=== PATIENT | female | born 1940 | race African-American/Black ===

== ENCOUNTER 2021-10-22 14:19 | Outpatient (REF) | payer OTHER, SELFPAY ==
[2021-10-22 16:55] LABS: Hematocrit 38.9 % (37.0-47.0); Hemoglobin 12.3 g/dl (12.0-16.0); Mean Corpuscular HGB Conc 31.6 g/dl (31.0-35.0); Mean Corpuscular Hemoglobin 26.7 pg (27.0-33.0); Mean Corpuscular Volume 84.4 fL (80.0-98.0); Mean Platelet Volume 12.3 fL (9.4-12.3); Platelet Count 250 X10*3/uL (160-400); Red Blood Count 4.61 X10*6/uL (4.20-5.50); Red Cell Distribution Width 13.5 % (11.0-16.0); White Blood Count 10.7 X10*3/uL (4.8-10.8)
[2021-10-22 17:39] LABS: Estimated Average Glucose 280 mg/dL; Hemoglobin A1c % 11.4 %
[2021-10-22 17:44] LABS: Creatinine Urine 307.54 mg/dL; Microalbum/Creatinine Ratio Ur 18.5 ug/mg cr
[2021-10-22 17:46] LABS: Alanine Aminotransferase 10 U/L (0-31); Albumin Level 4.1 g/dL (3.5-5.0); Alkaline Phosphatase 84 U/L (39-117); Anion Gap 14 (12-20); Aspartate Amino Transferase 14 U/L (5-31); Bilirubin Total 0.8 mg/dL (0.0-1.0); Blood Urea Nitrogen 20 mg/dL (9-16); Calcium 9.9 mg/dL (8.4-10.2); Carbon Dioxide 28 mmol/L (22-29); Chloride 101 mmol/L (96-108); Cholesterol 156 mg/dL; Estimated Glomerular Filt Rate 40; Glucose Fasting 156 mg/dL (60-99); HDL Cholesterol 58 mg/dL; LDL Cholesterol Calculated 86 mg/dl; Potassium 4.1 mmol/L (3.3-5.1); Sodium 139 mmol/L (135-145); Total Protein 7.8 g/dL (6.5-8.0); Triglycerides 64 mg/dL
[2021-10-22 18:03] LABS: TSH reflex Free T4 1.09 uIU/mL (0.32-4.0)
== END 2021-10-22 14:20 | disposition home or self-care (01) ==
LOC: HO.HMGCLDS 14:19
PROVIDERS: PCP Internal Medicine; Visit Provider Internal Medicine
DX: E78.5 Hyperlipidemia, unspecified (principal); I10 Essential (primary) hypertension; R41.3 Other amnesia; E11.9 Type 2 diabetes mellitus without complications
CPT/HCPCS: 36415; 80053; 80061; 82043; 83036; 84443; 85027

== ENCOUNTER 2022-05-26 16:09 | Outpatient (REF) | payer OTHER, SELFPAY ==
[2022-05-26 16:46] LABS: Estimated Average Glucose 192 mg/dL; Hemoglobin A1c % 8.3 %
[2022-05-26 16:51] LABS: Alanine Aminotransferase 17 U/L (0-31); Albumin Level 4.3 g/dL (3.5-5.0); Alkaline Phosphatase 100 U/L (39-117); Anion Gap 13 (12-20); Aspartate Amino Transferase 20 U/L (5-31); Blood Urea Nitrogen 16 mg/dL (9-16); Calcium 9.6 mg/dL (8.4-10.2); Carbon Dioxide 30 mmol/L (22-29); Chloride 102 mmol/L (96-108); Cholesterol 187 mg/dL; Estimated Glomerular Filt Rate 57; Glucose Fasting 194 mg/dL (60-99); HDL Cholesterol 71 mg/dL; LDL Cholesterol Calculated 106 mg/dl; Potassium 4.3 mmol/L (3.3-5.1); Sodium 141 mmol/L (135-145); Total Protein 7.8 g/dL (6.5-8.0); Triglycerides 54 mg/dL
== END 2022-05-26 16:10 | disposition home or self-care (01) ==
LOC: HO.LAB 16:09
PROVIDERS: PCP Internal Medicine; Visit Provider Internal Medicine
DX: E66.3 Overweight (principal); E78.5 Hyperlipidemia, unspecified; I10 Essential (primary) hypertension; E11.9 Type 2 diabetes mellitus without complications
CPT/HCPCS: 36415; 80053; 80061; 83036

== ENCOUNTER 2022-10-29 11:31 | Outpatient (REF) | payer OTHER, SELFPAY ==
[2022-10-29 13:29] LABS: MANUAL DIFF FLAG NO
[2022-10-29 13:51] LABS: Basophils Percent Auto 0.5 % (0-2); Eosinophils Absolute Auto 0.3 X10*3/uL (0.0-0.4); Eosinophils Percent Auto 3.6 % (0-4); Hematocrit 40.4 % (37.0-47.0); Imm Gran Abs Auto 0.02 X10*3/uL (0.00-0.03); Imm Gran Pct Auto 0.2 % (0.0-0.4); Lymphocytes Absolute Auto 2.6 X10*3/uL (1.2-4.9); Lymphocytes Percent Auto 32.3 % (20-40); Mean Corpuscular HGB Conc 32.2 g/dl (31.0-35.0); Mean Corpuscular Hemoglobin 27.6 pg (27.0-33.0); Mean Corpuscular Volume 85.8 fL (80.0-98.0); Mean Platelet Volume 12.8 fL (9.4-12.3); Monocytes Absolute Auto 0.5 X10*3/uL (0.1-1.2); Monocytes Percent Auto 6.6 % (2-11); Neutrophils Absolute Auto 4.6 x10*3/uL (2.0-8.3); Neutrophils Percent Auto 56.8 % (45-73); Platelet Count 216 X10*3/uL (160-400); Red Blood Count 4.71 X10*6/uL (4.20-5.50); Red Cell Distribution Width 13.2 % (11.0-16.0); White Blood Count 8.2 X10*3/uL (4.8-10.8)
[2022-10-29 13:53] LABS: Estimated Average Glucose 203 mg/dL; Hemoglobin A1c % 8.7 %
[2022-10-29 14:18] LABS: Alanine Aminotransferase 11 U/L (0-31); Albumin Level 4.1 g/dL (3.5-5.0); Alkaline Phosphatase 70 U/L (39-117); Anion Gap 12 (12-20); Aspartate Amino Transferase 16 U/L (5-31); Bilirubin Total 0.9 mg/dL (0.0-1.0); Blood Urea Nitrogen 16 mg/dL (9-16); Calcium 10.1 mg/dL (8.4-10.2); Carbon Dioxide 30 mmol/L (22-29); Chloride 102 mmol/L (96-108); Cholesterol 145 mg/dL; Estimated Glomerular Filt Rate 52; Glucose Fasting 190 mg/dL (60-99); HDL Cholesterol 62 mg/dL; LDL Cholesterol Calculated 68 mg/dl; Potassium 4.4 mmol/L (3.3-5.1); Sodium 140 mmol/L (135-145); Triglycerides 77 mg/dL
[2022-10-29 14:20] LABS: TSH reflex Free T4 1.37 uIU/mL (0.32-4.0); Vitamin D 25-OH Total 37.2 ng/mL (>30)
[2022-10-29 14:33] LABS: Creatinine Urine 71.47 mg/dL; Microalbum/Creatinine Ratio Ur 78.3 ug/mg cr
[2022-10-29 14:33] LABS: Folate 12.7 ng/mL (> or = 4.0); Vitamin B12 664 pg/mL (200-900)
== END 2022-10-29 11:32 | disposition home or self-care (01) ==
LOC: HO.HMGCLDS 11:31
PROVIDERS: PCP Internal Medicine; Visit Provider Internal Medicine
DX: E11.65 Type 2 diabetes mellitus with hyperglycemia (principal); E78.5 Hyperlipidemia, unspecified; I10 Essential (primary) hypertension; R41.3 Other amnesia; Z78.0 Asymptomatic menopausal state
CPT/HCPCS: 36415; 80053; 80061; 82043; 82306; 82607; 82746; 83036; 84443; 85025

== ENCOUNTER 2022-11-02 12:08 | Outpatient (AMB) | payer OTHER, SELFPAY ==
--- NOTE | 2022-11-02 12:16 | MHC.PC.OV ---
Vital Signs 11/02/22 12:42 Height 5 ft 4 in Weight 182 lb BMI 31.2 BP 132/68 Blood Pressure Location Lt brachial Position Sitting Pulse 78 Pulse Source Pulse Oximeter Pulse Oximetry (%) 95 Oxygen Delivery Method Room Air Intake Visit Reasons: 3 months HTN, DM Intake Note: Patient here for HTN and DM follow up. Allergies latex Allergy (Mild, Verified 11/02/22 13:00) Cough Medication List - Last Reconciled 11/02/22 by Inga Alvarenga MD atorvastatin 10 mg PO DAILY blood sugar diagnostic ([employer] Ultra Test strips) Check fasting glucose twice a day ac blood-glucose meter ([employer] Ultra2 Meter) Check fasting blood sugar twice a day before meals carvedilol 3.125 mg PO BID lancets ([facility] SureSoft Lancing Devices) Check fasting blood sugar twice a day ac metformin 1,000 mg PO BIDWMEAL nifedipine ER 90 mg PO DAILY Tobacco use date assessed: 06/03/22 HPI 3 months HTN, DM HPI Details 82-year-old lady with diabetes mellitus, hyperlipidemia, and hypertension, here today for follow-up. She had recent fasting labs done which showed hemoglobin A1c up to 8.7% now with microalbuminuria present. Lipids however are within normal limits. [facility] Medical History Diabetes mellitus with hyperglycemia, without long-term current use of insulin DM type 2 (diabetes mellitus, type 2) HTN (hypertension) Hyperlipidemia Memory loss Surgical History Hx of section Hx of total knee replacement S/P cholecystectomy S/P right knee surgery Family History Father Hypertension Stroke Mental health disorder Mother Hypertension Sister Tuberculosis Social History Household Members Other:: lives with daughter Housing: House Patient Tobacco Use Status: Never used Tobacco e-Cigarette/Vaping Use: Never Used Current occupational status: retired Cognitive needs: No Hearing needs: No Vision needs: Yes Questionnaire Thrive Questionnaire Date Thrive assessed: 06/03/22 JUSTUS-7 AMB Questionnaire JUSTUS-7 Date JUSTUS - 7 assessed: 06/03/22 Source: Developed by Drs. José Scott, Radha Cool, Carlos Blanco and colleagues, with an educational néstor from [employer]. Review of Systems Const All systems reviewed & are unremarkable except as noted in HPI and below Reports no additional complaints and Reports fatigue Eyes Denies change in vision ENT Reports no additional complaints Card Denies chest pain, Denies syncope, Denies rapid heart rate, Denies pedal edema, Denies irregular heart rhythm and Denies dyspnea Resp Denies cough and Denies dyspnea GI Reports no additional complaints Denies hematuria, Denies difficulty voiding and Denies dysuria Musc Details: Occasional stiffness in joints, no swelling or bone deformity he reported Neuro Reports no additional complaints and Denies syncope Endo Reports fatigue, Reports polydipsia and Reports polyuria Faisal/Lymph Denies easy bleeding and Denies easy bruising Aller/Immun Reports no additional complaints Physical exam (Primary Care) Vital Signs: Last Vital Signs Pulse 78 11/02/22 12:42 BP 132/68 11/02/22 12:42 Pulse Ox 95 11/02/22 12:42 Oxygen Delivery Method Room Air 11/02/22 12:42 BMI result Body Mass Index 31.2 BMI Assessment/Plan discussion: High BMI High, discussed plan: lifestyle, weight reduction, dietary and physical activity Tobacco/Smoking Status: Tobacco use Status Tobacco use date assessed 06/03/22 11/02/22 12:16 Patient Tobacco Use Status Never used Tobacco 11/02/22 12:16 e-Cigarette/Vaping Use Never Used 11/02/22 12:16 Thrive Assessment: Date of Thrive Assessment Date Thrive assessed 06/03/22 11/02/22 12:16 Const General: no acute distress and alert Orientation/consciousness: patient oriented x3 HENMT Head: Yes normal to inspection Face and sinus: Yes normal facial exam Mouth: Normal oral and palatal mucosa present and moist mucous membranes Throat: Yes posterior oropharynx normal Eyes General: appearance normal, both eyes and all related structures Neck Neck: Yes no lymphadenopathy and Yes supple Resp Effort & Inspection: normal respiratory effort Auscultation: clear to auscultation bilaterally Cardio Rhythm: regular rhythm Heart sounds: S1 normal heart sound present and S2 normal heart sound present GI Palpation (GI): Soft to palpation Percussion: Yes normal to percussion Auscultation: normal bowel sounds Skin Other: Plantar calluses in both feet Neuro General: patient oriented x3, gait normal, tone normal, moves all extremities, Normal light touch and pain sensation and CN's II-XI intact bilaterally Extrem General: Yes full ROM, Yes no joint enlargement, Yes no pedal edema and Yes normal gait Results Reviewed Results Reviewed: ENTERED: 10/29/[address]: ORDERED: CBC Auto Diff Test Result Flag Reference Site WBC 8.2 4.8-10.8 X10*3/uL RBC 4.71 4.20-5.50 X10*6/uL HGB 13.0 12.0-16.0 g/dl HCT 40.4 37.0-47.0 % MCV 85.8 80.0-98.0 fL MCH 27.6 27.0-33.0 pg MCHC 32.2 31.0-35.0 g/dl RDW 13.2 11.0-16.0 % PLT 216 160-400 X10*3/uL MPV 12.8 H 9.4-12.3 fL Neut Pct Auto 56.8 45-73 % ImGran Pct Auto 0.2 0.0-0.4 % Lymp Pct Auto 32.3 20-40 % Sullivan Pct Auto 6.6 2-11 % Eos Pct Auto 3.6 0-4 % Baso Pct Auto 0.5 0-2 % NRBC Pct Auto 0.0 0.0-0.2 /100WBC ANC Neut Abs # 4.6 2.0-8.3 x10*3/uL ImGran Abs Auto 0.02 0.00-0.03 X10*3/uL Lymph Abs Auto 2.6 1.2-4.9 X10*3/uL Sullivan Abs Auto 0.5 0.1-1.2 X10*3/uL Eos Abs Auto 0.3 0.0-0.4 X10*3/uL Baso Abs Auto 0.0 0.0-0.2 X10*3/uL NRBC Abs Auto 0.000 0.0-0.012 X10*3/uL Laboratory Tests 10/29/22 11:39 Estimat Average Glucose 203 Hemoglobin A1c % 8.7 ENTERED: 10/29/[address]: ORDERED: CMP Fast, Lipid Panel, Vitamin D 25-OH, TSH Rflx Test Result Flag Reference Site Sodium 140 135-145 mmol/L Potassium 4.4 3.3-5.1 mmol/L CL 102 96-108 mmol/L CO2 30 H 22-29 mmol/L Gap 12 12-20 BUN 16 9-16 mg/dL Creat 1.02 0.5-1.4 mg/dL EGFR 52 NOTE: For -[place] individuals, multiply the result by 1.210. Chronic Kidney Disease: Estimated GFR < 60 mL/min/1.73m2 Severe Kidney Disease: Estimated GFR < 15 mL/min/1.73m2 FBS 190 H 60-99 mg/dL A fasting glucose of 126 mg/dl or greater on more than one occasion is considered diagnostic of diabetes. CA 10.1 8.4-10.2 mg/dL Total Bili 0.9 0.0-1.0 mg/dL AST (GOT) 16 5-31 U/L ALT (GPT) 11 0-31 U/L Protein, Total 8.0 6.5-8.0 g/dL Alb 4.1 3.5-5.0 g/dL Triglyceride 77 mg/dL Desirable Triglyceride: less than 150 mg/dL Borderline High Triglyceride 150-199 mg/dL High Triglyceride: 200-499 mg/dL Very High Triglyceride: greater than or equal to 5OO mg/dL Chol 145 mg/dL Desirable Cholesterol: less than 200 mg/dL Borderline High Cholesterol: 200-239 mg/dL High Cholesterol: greater than 239 mg/dL LDL Calculated 68 mg/dl Desirable LDL: less than 100 mg/dL Near Optimal/Above Optimal LDL: 110-129 mg/dL Borderline High LDL: 130-159 mg/dL High LDL: 160-189 mg/dL Very High LDL: greater than or equal to 190 mg/dL HDL 62 mg/dL Desirable HDL: greater than 40 mg/dL Note: This HDL assay may give artificially low results in patients with liver disease. Alk Phos 70 39-117 U/L Vit D 25-OH Tot 37.2 >30 ng/mL Health Based Reference Values* < 20 ng/mL Deficient 20-30 ng/mL Insufficient > 30 ng/mL Sufficient *Lynette BORJAS. N Engl J Med. 2007;[id number] Care must be taken in interpreting Vitamin D results from different laboratories and methodologies. Published data demonstrated that results from patients undergoing hemodialysis may show a negative bias when tested with various automated 25-OH vitamin D assays when compared to LC-MS/MS. When testing samples from patients whose predominant form of Vitamin D is Vitamin D2, such as patients receiving Vitamin D2 supplementation, results that are subtherapeutic should be confirmed with another method such as LC-MS/MS. TSH 1.37 0.32-4.0 uIU/mL Laboratory Tests 10/29/22 10/29/22 11:39 11:39 Vitamin B12 664 Folate 12.7 TSH 1.37 Laboratory Tests 10/29/22 10/29/22 11:39 11:45 Estimat Average Glucose 203 Hemoglobin A1c % 8.7 Urine Creatinine 71.47 Urine Microalbumin 56.0 Microalb/Creat Ratio 78.3 Assessment and Plan Assessment & Plan (1) Diabetes mellitus with hyperglycemia, without long-term current use of insulin: Code(s): E11.65 - Type 2 diabetes mellitus with hyperglycemia Plan: Hemoglobin A1c higher at 8.7%, now with microalbuminuria present. Continue with metformin, added Trulicity 0.75 mg to be injected once a week, discussed possible adverse effects with medication, discontinue if any severe abdominal pain, nausea vomiting or fever develops. Reinforced adherence to diabetic diet and referred Lana for further diabetic education (2) HTN (hypertension): Code(s): I10 - Essential (primary) hypertension Plan: Blood pressure at goal of less than 130/80. Continue with current medication. Reinforced importance of following a low sodium diet, getting regular exercise, and lowering stress levels. (3) Hyperlipidemia: Code(s): E78.5 - Hyperlipidemia, unspecified Qualifiers: Hyperlipidemia type: pure hypercholesterolemia Qualified Code(s): E78.00 - Pure hypercholesterolemia, unspecified Plan: Reviewed recent fasting lipid profile with patient with levels . Continue with atorvastatin 10 mg daily , in addition to adherence to low-cholesterol diet and regular exercise, at least 30 minutes 3 to 4 times a week. Advised patient to make healthy food choices, eat more fruits, vegetables, whole grains, wild caught fish and low-fat dairy. Limit amount of meat and fried or fatty food products, as well as processed foods and fast foods. Medications: New Trulicity (dulaglutide) 0.75 mg (0.5 mL) subcut QWEEK 2 mL 3RF NS E11.65 - Type 2 diabetes mellitus with hyperglycemia Coding Level of Care Code Est Pt Level 4 (31276) Diagnoses Diabetes mellitus with hyperglycemia, without long-term current use of insulin E11.65 HTN (hypertension) I10 Pure hypercholesterolemia E78.00 Hyperlipidemia type: pure hypercholesterolemia
[2022-11-02 12:42] VITALS: BP 132/68; PULSE 78; O2SAT 95; BMI 31.2
== END 2022-11-02 13:42 | disposition home or self-care (01) ==
PROVIDERS: PCP Internal Medicine; Visit Provider Internal Medicine
DX: E11.65 Type 2 diabetes mellitus with hyperglycemia (principal); I10 Essential (primary) hypertension; E78.00 Pure hypercholesterolemia, unspecified
CPT/HCPCS: 99214

== ENCOUNTER 2023-04-07 09:58 | Outpatient (REF) | payer OTHER, SELFPAY ==
[2023-04-07 14:05] LABS: Estimated Average Glucose 143 mg/dL; Hemoglobin A1c % 6.6 % (<6.0)
[2023-04-07 14:23] LABS: Alanine Aminotransferase 12 U/L (0-31); Anion Gap 12 (12-20); Aspartate Amino Transferase 19 U/L (5-31); Blood Urea Nitrogen 13 mg/dL (9-16); Calcium 9.8 mg/dL (8.4-10.2); Carbon Dioxide 27 mmol/L (22-29); Chloride 103 mmol/L (96-108); Cholesterol 131 mg/dL (<200); Estimated Glomerular Filt Rate > 60; Glucose Fasting 121 mg/dL (60-99); HDL Cholesterol 51 mg/dL (>40); LDL Cholesterol Calculated 72 mg/dL (<100); Sodium 138 mmol/L (135-145); Triglycerides 44 mg/dL (<150)
== END 2023-04-07 09:59 | disposition home or self-care (01) ==
LOC: HO.HMGCLDS 09:58
PROVIDERS: PCP Internal Medicine; Visit Provider Internal Medicine
DX: E11.65 Type 2 diabetes mellitus with hyperglycemia (principal); E78.00 Pure hypercholesterolemia, unspecified; I10 Essential (primary) hypertension
CPT/HCPCS: 36415; 80048; 80061; 83036; 84450; 84460

== ENCOUNTER 2023-04-13 10:29 | Outpatient (AMB) | payer OTHER, SELFPAY ==
--- NOTE | 2023-04-13 10:33 | MHC.PC.OV ---
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 Accompanied by: Daughter (Candelaria) Allergies latex Allergy (Mild, Verified 04/14/23 04:47) Cough Medication List - Last Reconciled 04/14/23 by Inga Alvarenga MD atorvastatin 10 mg PO DAILY blood sugar diagnostic ([employer] Ultra Test strips) Check fasting glucose twice a day ac blood-glucose meter ([employer] Ultra2 Meter) Check fasting blood sugar twice a day before meals carvedilol 3.125 mg PO BID lancets ([employer] SureSoft Lancing Devices) Check fasting blood sugar twice a day ac metformin 1,000 mg PO BIDWMEAL nifedipine ER 90 mg PO DAILY Trulicity (dulaglutide) 0.75 mg (0.5 mL) subcut QWEEK NS Tobacco use date assessed: 04/13/23 Fall risk assessment: No Falls in past year Last assessed Fall Risk: 04/13/23 Dental Screening Dental Screen Date: 04/13/23 Did you have a dental visit in the last 12 months?: No Was dental information given to patient?: No HPI f/u lab results HPI Details 82-year-old lady, here today for follow-up on her hypertension, hyperlipidemia and diabetes mellitus. She has been compliant with taking her medications, has been following recommended diet, tries to stay active as much as she can. Feels well with no complaints. Recent fasting labs showed results within normal limits with hemoglobin A1c at 6.6%, fasting lipids within normal limits as well as liver enzymes electrolytes and renal function. She is up-to-date with all her vaccinations but has not yet received her updated pneumonia vaccine, which will be given today. [facility] Medical History (Updated 04/13/23 @ 11:12 by Inga Alvarenga MD) Impacted cerumen of both ears Diabetes mellitus, without long-term current use of insulin Essential hypertension Diabetes mellitus with hyperglycemia, without long-term current use of insulin Memory loss Hyperlipidemia Surgical History S/P right knee surgery Hx of section S/P cholecystectomy Hx of total knee replacement Family History Father Hypertension Stroke Mental health disorder Mother Hypertension Sister Tuberculosis Social History Household Members Other:: lives with daughter Housing: House Patient Tobacco Use Status: Never used Tobacco e-Cigarette/Vaping Use: Never Used Current occupational status: retired Cognitive needs: No Hearing needs: No Vision needs: Yes Questionnaire PHQ-9 Over the last 2 weeks, how often have you been bothered by any of the following problems? 1. Little interest or pleasure in doing things: not at all 2. Feeling down, depressed, or hopeless: not at all 3. Trouble falling or staying asleep, or sleeping too much: more than half the days 4. Feeling tired or having little energy: several days 5. Poor appetite or overeating: several days 6. Feeling bad about yourself - or that you are a failure or have let yourself or your family down: not at all 7. Trouble concentrating on things, such as reading the newspaper or watching television: not at all 8. Moving or speaking so slowly that other people could have noticed. Or the opposite - being so fidgety or restless that you have been moving around a lot more than usual: not at all 9. Thoughts that you would be better off or of hurting yourself in some way: not at all Total score: 4 Depression Screening Interpretation: Negative Depression Screening Done: Yes 29490 - PHQ-9 Billing: Yes Source: Developed by Drs. José Scott, Radha Cool, Carlos Blanco and colleagues, with an educational néstor from [employer]. Thrive Questionnaire Date Thrive assessed: 04/13/23 I am a: Patient What is your living situation today?: I have a steady place to live Within the past 12 months, did the food you bought not last and you didn't have the money to get more?: Sometimes True Within the past 12 months, did you worry whether your food would run out before you got money to buy more?: Sometimes True Do you have trouble paying for medicines?: Yes Do you have trouble getting transportation to medical appointments?: Yes Do you have trouble paying your heating and electricity bill?: Yes Do you have trouble taking care of your child, family member or friend?: No Do you have trouble with day-to-day activities such as bathing, preparing meals, shopping, managing finances, etc.?: No Are you currently unemployed and looking for a job?: No Are you interested in more education?: No THRIVE Score: 4 AUDIT C Alcohol Use Questionnaire (AUDIT-C) 1. How often do you have a drink containing alcohol?: Never Total Score: 0 JUSTUS-7 AMB Questionnaire JUSTUS-7 Date JUSTUS - 7 assessed: 04/13/23 Feeling nervous, anxious, or on edge: 0 = Not at all Not being able to stop or control worryin = Several days Worrying too much about different things: 1 = Several days Trouble relaxin = Not at all Being so restless that it is hard to sit still: 0 = Not at all Becoming easily annoyed or irritable: 0 = Not at all Feeling afraid as if something awful might happen: 1 = Several days Total JUSTUS-7 score (0-4 normal; 5-9 mild; 10-14 moderate; 15-21 severe): 3 Source: Developed by Drs. José Scott, Radha Cool, Carlos Blanco and colleagues, with an educational néstor from [employer]. JUSTUS-7 Assessment Billing JUSTUS-7 Assessment Tool: JUSTUS-7 Assessment 78621 Review of Systems Const All systems reviewed & are unremarkable except as noted in HPI and below Reports no additional complaints Eyes Denies change in vision ENT Details: Decreased hearing, negative will done August Denies ear discharge, Denies otalgia and Denies nasal congestion Card Denies chest pain, Denies rapid heart rate, Denies pedal edema, Denies irregular heart rhythm and Denies dyspnea Resp Denies cough and Denies dyspnea GI Reports no additional complaints Denies hematuria, Denies difficulty voiding and Denies dysuria Musc Details: Occasional stiffness in joints, no swelling or bone deformity he reported Neuro Reports no additional complaints Endo Reports polydipsia and Reports polyuria Faisal/Lymph Denies easy bleeding and Denies easy bruising Aller/Immun Reports no additional complaints Physical exam (Primary Care) Vital Signs: Last Vital Signs Pulse 89 04/13/23 10:43 BP 148/72 H 04/13/23 10:43 Pulse Ox 98 04/13/23 10:43 Oxygen Delivery Method Room Air 04/13/23 10:43 BMI result Body Mass Index 31.6 Tobacco/Smoking Status: Tobacco use Status Tobacco use date assessed 04/13/23 04/13/23 10:40 Patient Tobacco Use Status Never used Tobacco 04/13/23 10:40 e-Cigarette/Vaping Use Never Used 04/13/23 10:40 PHQ-9: PHQ-9 Score PHQ-9: Total score 4 04/13/23 11:11 Depression Screening Interpretation: Negative Thrive Assessment: Date of Thrive Assessment Date Thrive assessed 04/13/23 04/13/23 10:55 ACP: Accompanied by daughter, ambulatory normal gait Const General: no acute distress and alert Orientation/consciousness: patient oriented x3 HENMT Head: Yes normal to inspection Face and sinus: Yes normal facial exam Mouth: Normal oral and palatal mucosa present and moist mucous membranes Throat: Yes posterior oropharynx normal Eyes General: appearance normal, both eyes and all related structures Neck Neck: Yes no lymphadenopathy and Yes supple Resp Effort & Inspection: normal respiratory effort Auscultation: clear to auscultation bilaterally Cardio Rhythm: regular rhythm Heart sounds: S1 normal heart sound present and S2 normal heart sound present GI Palpation (GI): Soft to palpation Percussion: Yes normal to percussion Auscultation: normal bowel sounds Skin Other: Plantar calluses in both feet Neuro General: patient oriented x3, gait normal, tone normal, moves all extremities, Normal light touch and pain sensation and CN's II-XI intact bilaterally Extrem General: Yes full ROM, Yes no joint enlargement, Yes no pedal edema and Yes normal gait Immunizations pneumoc 20-jennie conj-dip cr(PF) 0.5 mL IM syringe Performing Provider: Inga Alvarenga MD Performing Location: [facility] Administered by: Dennise Medley CMA on 04/13/23 11:18 Dose Route Admin Location Dispensed Lot Number Expiration Date NDC Computer Forensic Examiner 0.5 mL IM Right Deltoid 0.5 mL [id number] 05/12/24 2035-6040-32 [employer] VIS Given Date VIS Provided VIS Publication Date 04/13/23 Single Vaccine 21 Eligibility Eligibility Date Funding Source Not VFC Eligible 04/13/23 Private Results Reviewed Results Reviewed: Name: Ely Little Age/Sex: 82/F : 1940 Unit#: [id number] Attend Dr: Inga Alvarenga MD Re04/07/23 Status: DEP REF Location: [facility] Disch: SPEC : [id number] ELIAN: 04/07/23 STATUS: COMP REQ : [id number] RECD: 04/07/23-[address]: Inga Alvarenga MD COMP: 04/07/23 ENTERED: 04/07/23-[address]: ORDERED: Met Prof Fast, AST, ALT, Lipid Panel Test Result Flag Reference Sodium 138 135-145 mmol/L Potassium 4.0 3.3-5.1 mmol/L CL 103 96-108 mmol/L CO2 27 22-29 mmol/L Gap 12 12-20 BUN 13 9-16 mg/dL Creat 0.88 0.5-1.4 mg/dL EGFR > 60 NOTE: For -[place] individuals, multiply the result by 1.210. Chronic Kidney Disease: Estimated GFR < 60 mL/min/1.73m2 Severe Kidney Disease: Estimated GFR < 15 mL/min/1.73m2 FBS 121 H 60-99 mg/dL A fasting glucose from 100-125 mg/dl is considered impaired (pre-diabetes). CA 9.8 8.4-10.2 mg/dL AST (GOT) 19 5-31 U/L ALT (GPT) 12 0-31 U/L Triglyceride 44 <150 mg/dL Desirable Triglyceride: less than 150 mg/dL Borderline High Triglyceride 150-199 mg/dL High Triglyceride: 200-499 mg/dL Very High Triglyceride: greater than or equal to 5OO mg/dL Cholesterol 131 <200 mg/dL Desirable Cholesterol: less than 200 mg/dL Borderline High Cholesterol: 200-239 mg/dL High Cholesterol: greater than 239 mg/dL LDL Calculated 72 <100 mg/dL Desirable LDL: less than 100 mg/dL Near Optimal/Above Optimal LDL: 110-129 mg/dL Borderline High LDL: 130-159 mg/dL High LDL: 160-189 mg/dL Very High LDL: greater than or equal to 190 mg/dL HDL 51 >40 mg/dL Desirable HDL: greater than 40 mg/dL Note: This HDL assay may give artificially low results in patients with liver disease. Laboratory Tests 04/07/23 10:12 Estimat Average Glucose 143 Hemoglobin A1c % 6.6 H Assessment and Plan Assessment & Plan (1) Diabetes mellitus, without long-term current use of insulin: Code(s): E11.9 - Type 2 diabetes mellitus without complications Plan: Recent lab results reviewed with patient, with sugar and hemoglobin A1c stable and at goal with hemoglobin A1c at 6.6%. Continue with Trulicity, metformin at the same dose . Reinforced diabetic diet and regular exercise with patient. Counseled regarding importance of yearly diabetes retinopathy screening. Patient advised to inspect feet daily, for any signs of injury, callus or infection. Compliance with diet and regular exercise again stressed. Blood pressure goal is less than 130/80, goal LDL is less than 100 and goal hemoglobin A1c is less than 7% follow-up appointment made in-3--months, after fasting labs done. Patient states that she received already her COVID vaccine from the [facility] and her flu shot from [facility]. Prevnar 20 given today. Recommended to get shingles vaccine (2) Essential hypertension: Code(s): I10 - Essential (primary) hypertension Plan: Blood pressure higher than last check but acceptable for her age, will continue on nifedipine ER, carvedilol at same dose and reinforced importance of a low-salt diet staying at (3) Hyperlipidemia: Code(s): E78.5 - Hyperlipidemia, unspecified Qualifiers: Hyperlipidemia type: pure hypercholesterolemia Qualified Code(s): E78.00 - Pure hypercholesterolemia, unspecified Plan: Reviewed recent fasting lipid profile with patient with levels within normal limits . Continue with atorvastatin 10 mg daily , in addition to adherence to low-cholesterol diet and regular exercise, at least 30 minutes 3 to 4 times a week. Advised patient to make healthy food choices, eat more fruits, vegetables, whole grains, wild caught fish and low-fat dairy. Limit amount of meat and fried or fatty food products, as well as processed foods and fast foods. Follow-up scheduled with repeat fasting lipid panel in 3 months. (4) Impacted cerumen of both ears: Code(s): H61.23 - Impacted cerumen, bilateral Orders: Orders Basic Metabolic Panel Fasting 3 Months E11.9 - Type 2 diabetes mellitus without complications, E78.5 - Hyperlipidemia, unspecified, I10 - Essential (primary) hypertension Alanine Aminotransferase 3 Months E11.9 - Type 2 diabetes mellitus without complications, E78.5 - Hyperlipidemia, unspecified, I10 - Essential (primary) hypertension Aspartate Amino Transferase 3 Months E11.9 - Type 2 diabetes mellitus without complications, E78.5 - Hyperlipidemia, unspecified, I10 - Essential (primary) hypertension Pneumococcal 20 Immunization 04/13/23 Z23 - Encounter for immunization Hemoglobin A1c 3 Months E11.9 - Type 2 diabetes mellitus without complications, E78.5 - Hyperlipidemia, unspecified, I10 - Essential (primary) hypertension Microalbumin, Random (w Creat) 3 Months E11.9 - Type 2 diabetes mellitus without complications, E78.5 - Hyperlipidemia, unspecified, I10 - Essential (primary) hypertension Lipid Panel 3 Months E11.9 - Type 2 diabetes mellitus without complications, E78.5 - Hyperlipidemia, unspecified, I10 - Essential (primary) hypertension Vitamin D 25-OH Total 3 Months E11.9 - Type 2 diabetes mellitus without complications, E78.5 - Hyperlipidemia, unspecified, I10 - Essential (primary) hypertension Medications: Refilled nifedipine ER 90 mg PO DAILY 30 tabs 5RF atorvastatin 10 mg PO DAILY 30 tabs 6RF Trulicity (dulaglutide) 0.75 mg (0.5 mL) subcut QWEEK 2 mL 6RF NS E11.65 - Type 2 diabetes mellitus with hyperglycemia carvedilol 3.125 mg PO BID 60 tabs 6RF metformin 1,000 mg PO BIDWMEAL 60 tabs 6RF Coding Level of Care Code Est Pt Level 4 (13136) Diagnoses Diabetes mellitus, without long-term current use of insulin E11.9 Essential hypertension I10 Pure hypercholesterolemia E78.00 Hyperlipidemia type: pure hypercholesterolemia Impacted cerumen of both ears H61.23 Additional Codes JUSTUS-7 Assessment Billing - JUSTUS-7 Assessment Tool: JUSTUS-7 Assessment 27981 ([id number])
[2023-04-13 10:43] VITALS: BP 148/72; PULSE 89; O2SAT 98; BMI 31.6
== END 2023-04-13 16:18 | disposition home or self-care (01) ==
LOC: HO.HMGC 10:29
PROVIDERS: PCP Internal Medicine; Visit Provider Internal Medicine
DX: Z23 Encounter for immunization (principal)
CPT/HCPCS: 90471; 90677; 99214

== ENCOUNTER 2023-08-03 10:27 | Outpatient (REF) | payer OTHER, SELFPAY ==
[2023-08-03 13:44] LABS: Estimated Average Glucose 223 mg/dL; Hemoglobin A1c % 9.4 % (<6.0)
[2023-08-03 14:06] LABS: Alanine Aminotransferase 13 U/L (0-31); Anion Gap 14 (12-20); Aspartate Amino Transferase 19 U/L (5-31); Blood Urea Nitrogen 20 mg/dL (9-16); Calcium 9.8 mg/dL (8.4-10.2); Carbon Dioxide 28 mmol/L (22-29); Chloride 102 mmol/L (96-108); Cholesterol 148 mg/dL (<200); Estimated Glomerular Filt Rate 51; Glucose Fasting 201 mg/dL (60-99); HDL Cholesterol 62 mg/dL (>40); LDL Cholesterol Calculated 70 mg/dL (<100); Potassium 4.6 mmol/L (3.3-5.1); Sodium 139 mmol/L (135-145); Triglycerides 80 mg/dL (<150)
[2023-08-03 14:10] LABS: Vitamin D 25-OH Total 37.4 ng/mL (>30)
[2023-08-03 14:13] LABS: Creatinine Urine 134.41 mg/dL; Microalbum/Creatinine Ratio Ur 71.4 ug/mg cr (<30)
== END 2023-08-03 10:28 | disposition home or self-care (01) ==
LOC: HO.HMGCLDS 10:27
PROVIDERS: PCP Internal Medicine; Visit Provider Internal Medicine
DX: E11.9 Type 2 diabetes mellitus without complications (principal); I10 Essential (primary) hypertension; E78.5 Hyperlipidemia, unspecified
CPT/HCPCS: 36415; 80048; 80061; 82043; 82306; 82570; 83036; 84450; 84460

== ENCOUNTER 2023-10-05 11:41 | Outpatient (AMB) | payer OTHER, SELFPAY ==
[2023-10-05 11:44] VITALS: BP 116/56; PULSE 78; O2SAT 96; BMI 31.8
--- NOTE | 2023-10-05 11:44 | MHC.PC.OV ---
Vital Signs 10/05/23 11:44 Height 5 ft 4 in Weight 185 lb BMI 31.8 BP 116/56 L Blood Pressure Location Lt brachial Position Sitting Pulse 78 Pulse Source Pulse Oximeter Pulse Oximetry (%) 96 Oxygen Delivery Method Room Air Intake Visit Reasons: Lab results follow up Allergies latex Allergy (Mild, Verified 10/05/23 11:55) Cough Medication List - Last Reconciled 10/05/23 by Inga Alvarenga MD atorvastatin 10 mg PO DAILY blood sugar diagnostic ([employer] Ultra Test strips) Check fasting glucose twice a day ac blood-glucose meter ([employer] Ultra2 Meter) Check fasting blood sugar twice a day before meals carvedilol 3.125 mg PO BID lancets ([employer]) Check fasting blood sugar twice a day ac metformin 1,000 mg PO BIDWMEAL nifedipine ER 90 mg PO DAILY Tobacco use date assessed: 10/05/23 Fall risk assessment: No Falls in past year Last assessed Fall Risk: 10/05/23 Dental Screening Dental Screen Date: 10/05/23 Did you have a dental visit in the last 12 months?: No Did you have a dental problem in the last 6 months where you did not have access to dental care?: No Was dental information given to patient?: Patient declined HPI Lab results follow up HPI Details 82-year-old lady with diabetes mellitus, hypertension and hyperlipidemia, here today for follow-up. She had labs done in July 2023 which showed poor control of her diabetes, with hemoglobin A1c going up from 6.6 in 03/2023 to 9.4% on 08/03/2023. She is just taking metformin a 1000 mg 1 tablet twice a day but admits to frequently forgetting to take her medications especially in the morning. She also was unable to continue using Trulicity as medication became too expensive for her. Her blood pressure and fasting lipids are well controlled with present treatment. Would like a referral to Podiatry, as she has a blackish discoloration on her left big toe which has been present now for months. She has been feeling well, with no complaints of chest pain or shortness of breath or headache or lightheadedness. However she has noticed that her energy level has decreased feels more sluggish after she stopped using Trulicity. [facility] Medical History (Updated 10/05/23 @ 12:29 by Inga Alvarenga MD) Impacted cerumen of both ears Essential hypertension Diabetes mellitus with hyperglycemia, without long-term current use of insulin Memory loss Hyperlipidemia Surgical History S/P right knee surgery Hx of section S/P cholecystectomy Hx of total knee replacement Family History Father Hypertension Stroke Mental health disorder Mother Hypertension Sister Tuberculosis Social History Household Members Other:: lives with daughter Housing: House Patient Tobacco Use Status: Never used Tobacco e-Cigarette/Vaping Use: Never Used Current occupational status: retired Cognitive needs: No Hearing needs: No Vision needs: Yes Questionnaire PHQ-9 Over the last 2 weeks, how often have you been bothered by any of the following problems? 1. Little interest or pleasure in doing things: several days 2. Feeling down, depressed, or hopeless: not at all 3. Trouble falling or staying asleep, or sleeping too much: not at all 4. Feeling tired or having little energy: more than half the days 5. Poor appetite or overeating: several days 6. Feeling bad about yourself - or that you are a failure or have let yourself or your family down: not at all 7. Trouble concentrating on things, such as reading the newspaper or watching television: not at all 8. Moving or speaking so slowly that other people could have noticed. Or the opposite - being so fidgety or restless that you have been moving around a lot more than usual: not at all 9. Thoughts that you would be better off or of hurting yourself in some way: not at all Total score: 4 Depression Screening Interpretation: Negative Depression Screening Done: Yes [id number] - PHQ-9 Billing: Yes Source: Developed by Drs. José Scott, Radha Cool, Carlos Blanco and colleagues, with an educational néstor from [employer]. Thrive Questionnaire Date Thrive assessed: 10/05/23 I am a: Patient What is your living situation today?: I have a steady place to live Within the past 12 months, did the food you bought not last and you didn't have the money to get more?: Never true Within the past 12 months, did you worry whether your food would run out before you got money to buy more?: Never true Do you have trouble paying for medicines?: Yes Do you have trouble getting transportation to medical appointments?: No Do you have trouble paying your heating and electricity bill?: Yes Do you have trouble taking care of your child, family member or friend?: No Do you have trouble with day-to-day activities such as bathing, preparing meals, shopping, managing finances, etc.?: Yes Are you currently unemployed and looking for a job?: Yes Are you interested in more education?: No Please select the resources that you would like help with: Paying for medicine and Utilities Currently or been in a relationship where the following occur: No concerns reported THRIVE Score: 1 AUDIT C Alcohol Use Questionnaire (AUDIT-C) 1. How often do you have a drink containing alcohol?: Never Total Score: 0 JUSTUS-7 AMB Questionnaire JUSTUS-7 Date JUSTUS - 7 assessed: 10/05/23 Feeling nervous, anxious, or on edge: 1 = Several days Not being able to stop or control worryin = Several days Worrying too much about different things: 1 = Several days Trouble relaxin = Not at all Being so restless that it is hard to sit still: 0 = Not at all Becoming easily annoyed or irritable: 1 = Several days Feeling afraid as if something awful might happen: 0 = Not at all Total JUSTUS-7 score (0-4 normal; 5-9 mild; 10-14 moderate; 15-21 severe): 4 Source: Developed by Drs. José Scott, Radha Cool, Carlos Blanco and colleagues, with an educational néstor from [employer]. JUSTUS-7 Assessment Billing JUSTUS-7 Assessment Tool: JUSTUS-7 Assessment 34758 Review of Systems Const Reports as per HPI and Reports malaise Eyes Details: Overdue for diabetes retinopathy screening Denies change in vision ENT Details: Decreased hearing both ears Denies ear discharge, Denies otalgia and Denies nasal congestion Card Denies chest pain, Denies rapid heart rate, Denies pedal edema, Denies irregular heart rhythm and Denies dyspnea Resp Denies cough and Denies dyspnea GI Reports no additional complaints Denies hematuria, Denies difficulty voiding and Denies dysuria Musc Details: Occasional stiffness in joints, no swelling or bone deformity he reported Neuro Reports no additional complaints Psych Reports no additional complaints Endo Reports polydipsia and Reports polyuria Faisal/Lymph Denies easy bleeding and Denies easy bruising Aller/Immun Reports no additional complaints Physical exam (Primary Care) Vital Signs: Last Vital Signs Pulse 78 10/05/23 11:44 BP 116/56 L 10/05/23 11:44 Pulse Ox 96 10/05/23 11:44 Oxygen Delivery Method Room Air 10/05/23 11:44 BMI result Body Mass Index 31.8 Tobacco/Smoking Status: Tobacco use Status Tobacco use date assessed 10/05/23 10/05/23 11:50 Patient Tobacco Use Status Never used Tobacco 10/05/23 11:46 e-Cigarette/Vaping Use Never Used 10/05/23 11:46 PHQ-9: PHQ-9 Score PHQ-9: Total score 14 10/05/23 11:46 Depression Screening Interpretation: Negative Thrive Assessment: Date of Thrive Assessment Date Thrive assessed 10/05/23 10/05/23 11:50 Currently or been in a relationship where the following occur: No concerns reported ACP: Accompanied by daughter, ambulatory normal gait Const General: no acute distress and alert Orientation/consciousness: patient oriented x3 HENMT Ears: TM's normal bilaterally and EAC's normal Mouth: Normal oral and palatal mucosa present and moist mucous membranes Throat: Yes posterior oropharynx normal Eyes General: appearance normal, both eyes and all related structures Neck Neck: Yes no lymphadenopathy and Yes supple Resp Effort & Inspection: normal respiratory effort Auscultation: clear to auscultation bilaterally Cardio Rhythm: regular rhythm Heart sounds: S1 normal heart sound present and S2 normal heart sound present GI Palpation (GI): Soft to palpation Percussion: Yes normal to percussion Auscultation: normal bowel sounds Skin Other: Plantar calluses in both feet, black discoloration on half of toenail of left big toe Neuro General: patient oriented x3, gait normal, tone normal, moves all extremities, Normal light touch and pain sensation and CN's II-XI intact bilaterally Extrem General: Yes full ROM, Yes no joint enlargement, Yes no pedal edema and Yes normal gait Psych Appearance: grossly normal and well kempt Mental Status: mental status grossly normal Speech and movement: Normal speech and movement present Affect: normal affect Thought process: Normal thought process present Thought content: Normal thought content present Results Reviewed Results Reviewed: Laboratory Tests 04/07/23 08/03/23 08/03/23 10:12 10:32 10:40 Estimat Average Glucose 143 223 Hemoglobin A1c % 6.6 H 9.4 H Urine Creatinine 134.41 Urine Microalbumin 96.0 Microalb/Creat Ratio 71.4 H lauren: Ely Little Age/Sex: 82/F : 1940 Unit#: [id number] Attend Dr: Inga Alvarenga MD Re08/03/23 Status: DEP [facility] SPEC : [id number] ELIAN: 08/03/23 STATUS: COMP REQ : [id number] RECD: 08/03/23-[address]: Inga Alvarenga MD COMP: 08/03/23-1410 ENTERED: 08/03/23-[address]: ORDERED: Met Prof Fast, AST, ALT, Lipid Panel, Vitamin D 25-OH Test Result Flag Reference Sodium 139 135-145 mmol/L Potassium 4.6 3.3-5.1 mmol/L CL 102 96-108 mmol/L CO2 28 22-29 mmol/L Gap 14 12-20 BUN 20 H 9-16 mg/dL Creat 1.04 0.5-1.4 mg/dL EGFR 51 NOTE: For -[place]cu[place] individuals, multiply the result by 1.210. Chronic Kidney Disease: Estimated GFR < 60 mL/min/1.73m2 Severe Kidney Disease: Estimated GFR < 15 mL/min/1.73m2 FBS 201 H 60-99 mg/dL A fasting glucose of 126 mg/dl or greater on more than one occasion is considered diagnostic of diabetes. CA 9.8 8.4-10.2 mg/dL AST (GOT) 19 5-31 U/L ALT (GPT) 13 0-31 U/L Triglyceride 80 <150 mg/dL Desirable Triglyceride: less than 150 mg/dL Borderline High Triglyceride 150-199 mg/dL High Triglyceride: 200-499 mg/dL Very High Triglyceride: greater than or equal to 5OO mg/dL Cholesterol 148 <200 mg/dL Desirable Cholesterol: less than 200 mg/dL Borderline High Cholesterol: 200-239 mg/dL High Cholesterol: greater than 239 mg/dL LDL Calculated 70 <100 mg/dL Desirable LDL: less than 100 mg/dL Near Optimal/Above Optimal LDL: 110-129 mg/dL Borderline High LDL: 130-159 mg/dL High LDL: 160-189 mg/dL Very High LDL: greater than or equal to 190 mg/dL HDL 62 >40 mg/dL Desirable HDL: greater than 40 mg/dL Note: This HDL assay may give artificially low results in patients with liver disease. Vit D 25-OH Tot 37.4 >30 ng/mL Health Based Reference Values* < 20 ng/mL Deficient 20-30 ng/mL Insufficient > 30 ng/mL Sufficient Assessment and Plan Assessment & Plan (1) Nail discoloration: Code(s): L60.8 - Other nail disorders Plan: Referred to [place] pod[facility] for further evaluation management (2) Diabetes mellitus with hyperglycemia, without long-term current use of insulin: Code(s): E11.65 - Type 2 diabetes mellitus with hyperglycemia Plan: poor control of diabetes mellitus noted with hemoglobin A1c now up to 9.4% from 6.6% last March 2023. Stressed importance of taking medications as directed, will continued on metformin a 1000 mg twice a day with meals, and added Jardiance 10 mg 1 tablet in a.m. an hour before breakfast. Reminded to get her eyes checked for diabetes involvement, referred to podiatry for evaluation of discolored toenail and foot exam. Has is up-to-date with her COVID vaccine, pneumonia vaccine, reminded to get her shingles vaccine and flu shot this year (3) Essential hypertension: Code(s): I10 - Essential (primary) hypertension Plan: Blood pressure at goal of less than 130/80. Continue with current medication. Reinforced importance of following a low sodium diet, getting regular exercise, and lowering stress levels. (4) Hyperlipidemia: Code(s): E78.5 - Hyperlipidemia, unspecified Qualifiers: Hyperlipidemia type: pure hypercholesterolemia Qualified Code(s): E78.00 - Pure hypercholesterolemia, unspecified Plan: Reviewed recent fasting lipid profile with patient with levels within normal . Continue atorvastatin 10 mg daily , in addition to adherence to low-cholesterol diet and regular exercise, at least 30 minutes 3 to 4 times a week. Advised patient to make healthy food choices, eat more fruits, vegetables, whole grains, wild caught fish and low-fat dairy. Limit amount of meat and fried or fatty food products, as well as processed foods and fast foods. Follow-up scheduled with repeat fasting lipid panel in 2 months. Orders: Orders Hemoglobin A1c 11/15/23 E11.65 - Type 2 diabetes mellitus with hyperglycemia, E78.00 - Pure hypercholesterolemia, unspecified, I10 - Essential (primary) hypertension Alanine Aminotransferase 11/15/23 E11.65 - Type 2 diabetes mellitus with hyperglycemia, E78.00 - Pure hypercholesterolemia, unspecified, I10 - Essential (primary) hypertension Basic Metabolic Panel Fasting 11/15/23 E11.65 - Type 2 diabetes mellitus with hyperglycemia, E78.00 - Pure hypercholesterolemia, unspecified, I10 - Essential (primary) hypertension Aspartate Amino Transferase 11/15/23 E11.65 - Type 2 diabetes mellitus with hyperglycemia, E78.00 - Pure hypercholesterolemia, unspecified, I10 - Essential (primary) hypertension Lipid Panel 11/15/23 E11.65 - Type 2 diabetes mellitus with hyperglycemia, E78.00 - Pure hypercholesterolemia, unspecified, I10 - Essential (primary) hypertension Vitamin D 25-OH Total 11/15/23 E11.65 - Type 2 diabetes mellitus with hyperglycemia, E78.00 - Pure hypercholesterolemia, unspecified, I10 - Essential (primary) hypertension Referrals Podiatry Referral E11.9 - Type 2 diabetes mellitus without complications, L60.8 - Other nail disorders Medications: New empagliflozin (Jardiance) 10 mg PO QAM 30 tabs 3RF E11.65 - Type 2 diabetes mellitus with hyperglycemia Coding Level of Care Code Est Pt Level 4 (27637) Complex EM visit Add On G2211 Diagnoses Nail discoloration L60.8 Diabetes mellitus with hyperglycemia, without long-term current use of insulin E11.65 Essential hypertension I10 Pure hypercholesterolemia E78.00 Hyperlipidemia type: pure hypercholesterolemia Additional Codes JUSTUS-7 Assessment Billing - JUSTUS-7 Assessment Tool: JUSTUS-7 Assessment 40771 ([id number])
== END 2023-10-05 12:17 | disposition home or self-care (01) ==
PROVIDERS: PCP Internal Medicine; Visit Provider Internal Medicine
DX: E11.65 Type 2 diabetes mellitus with hyperglycemia (principal); L60.8 Other nail disorders; I10 Essential (primary) hypertension; E78.00 Pure hypercholesterolemia, unspecified
CPT/HCPCS: 99214; G2211

== ENCOUNTER 2023-12-27 11:52 | Outpatient (REF) | payer MEDICARE, SELFPAY ==
[2023-12-27 13:20] LABS: Estimated Average Glucose 194 mg/dL; Hemoglobin A1C 199.6171 umol/L; Hemoglobin A1c % 8.4 % (<6.0); Total Hemoglobin (HGBA1C) 2908.1147 umol/L
[2023-12-27 13:45] LABS: Alanine Aminotransferase 9 U/L (0-31); Anion Gap 12 (12-20); Aspartate Amino Transferase 15 U/L (5-31); Blood Urea Nitrogen 15 mg/dL (9-16); Carbon Dioxide 28 mmol/L (22-29); Chloride 104 mmol/L (96-108); Cholesterol 126 mg/dL (<200); Estimated Glomerular Filt Rate 54; Glucose Fasting 167 mg/dL (60-99); HDL Cholesterol 58 mg/dL (>40); LDL Cholesterol Calculated 58 mg/dL (<100); Potassium 4.4 mmol/L (3.3-5.1); Sodium 140 mmol/L (135-145); Triglycerides 53 mg/dL (<150)
== END 2023-12-27 11:53 | disposition home or self-care (01) ==
LOC: HO.HMGCLDS 11:52
PROVIDERS: PCP Internal Medicine; Visit Provider Internal Medicine
DX: E11.65 Type 2 diabetes mellitus with hyperglycemia (principal); I10 Essential (primary) hypertension; E78.00 Pure hypercholesterolemia, unspecified
CPT/HCPCS: 36415; 80048; 80061; 82306; 83036; 84450; 84460

== ENCOUNTER 2023-12-30 13:12 | Outpatient (AMB) | payer MEDICARE, SELFPAY ==
[2023-12-30 13:33] VITALS: BP 134/68; PULSE 76; O2SAT 98; BMI 32.3
--- NOTE | 2023-12-30 13:33 | A.OFFPC_ITS ---
Vital Signs 12/30/23 13:33 Height 5 ft 4 in Weight 188 lb 6 oz BMI 32.3 BP 134/68 Blood Pressure Location Rt brachial Position Sitting Pulse 76 Pulse Source Pulse Oximeter Pulse Oximetry (%) 98 Oxygen Delivery Method Room Air Intake Visit Reasons: 2-3 month follow up Allergies latex Allergy (Mild, Verified 12/30/23 14:09) Cough Medication List - Last Reconciled 12/30/23 by Inga Alvarenga MD atorvastatin 10 mg PO DAILY blood sugar diagnostic (Liquid SpinsTouch Ultra Test strips) Check fasting glucose twice a day ac blood-glucose meter ([employer]uch Ultra2 Meter) Check fasting blood sugar twice a day before meals carvedilol 3.125 mg PO BID lancets ([employer]) Check fasting blood sugar twice a day ac metformin 1,000 mg PO BIDWMEAL nifedipine ER 90 mg PO DAILY Tobacco use date assessed: 12/30/23 Fall risk assessment: No Falls in past year Last assessed Fall Risk: 12/30/23 Dental Screening Dental Screen Date: 12/30/23 Did you have a dental visit in the last 12 months?: Yes Did you have a dental problem in the last 6 months where you did not have access to dental care?: No Was dental information given to patient?: Patient has dentist HPI 2-3 month follow up HPI Details 83-year-old lady with hypertension, hype rlipidemia, and diabetes mellitus, here today for follow-up. She has been compliant with taking her medications and tries to follow recommended diet. Patient states that she has only been taking metformin and stopped Trulicity in which she has been using the past due to the high cost of the medication. While on it her diabetes was well controlled . We prescribed Januvia on the last visit, but patient unable to fill it as well as medication was too expensive. Her recent fasting labs showed some improvement in her diabetes control, with hemoglobin A1c now at 8.8 % but still not at goal of less than 6.5%. Her fasting lipids are within normal limits. [facility] Medical History (Updated 12/30/23 @ 14:18 by Inga Alvarenga MD) Essential hypertension Diabetes mellitus with hyperglycemia, without long-term current use of insulin Memory loss Hyperlipidemia Surgical History S/P right knee surgery Hx of section S/P cholecystectomy Hx of total knee replacement Family History Father Hypertension Stroke Mental health disorder Mother Hypertension Sister Tuberculosis Social History Household Members Other:: lives with daughter Housing: House Patient Tobacco Use Status: Never used Tobacco e-Cigarette/Vaping Use: Never Used Current occupational status: retired Cognitive needs: No Hearing needs: No Vision needs: Yes Questionnaire Thrive Questionnaire Date Thrive assessed: 12/30/23 I am a: Patient What is your living situation today?: I have a steady place to live Within the past 12 months, did the food you bought not last and you didn't have the money to get more?: Never true Within the past 12 months, did you worry whether your food would run out before you got money to buy more?: Never true Do you have trouble paying for medicines?: Yes Do you have trouble getting transportation to medical appointments?: No Do you have trouble paying your heating and electricity bill?: Yes Do you have trouble taking care of your child, family member or friend?: No Do you have trouble with day-to-day activities such as bathing, preparing meals, shopping, managing finances, etc.?: Yes Are you currently unemployed and looking for a job?: Yes Are you interested in more education?: No Currently or been in a relationship where the following occur: No concerns reported THRIVE Score: 1 AUDIT C Alcohol Use Questionnaire (AUDIT-C) 1. How often do you have a drink containing alcohol?: Never 3. How often do you have six or more drinks on one occasion?: Never Total Score: 0 Score Reviewed/Action Taken: Yes JUSTUS-7 AMB Questionnaire JUSTUS-7 Date JUSTUS - 7 assessed: 10/05/23 Source: Developed by Drs. José Scott, Radha Cool, Carlos Blanco and colleagues, with an educational néstor from [employer]. Review of Systems Const Reports as per HPI Eyes Details: Overdue for diabetes retinopathy screening Denies change in vision ENT Details: Decreased hearing both ears Denies ear discharge, Denies otalgia and Denies nasal congestion Card Denies chest pain, Denies rapid heart rate, Denies pedal edema, Denies irregular heart rhythm and Denies dyspnea Resp Denies cough and Denies dyspnea GI Reports no additional complaints Denies hematuria, Denies difficulty voiding and Denies dysuria Musc Details: Occasional stiffness in joints, no swelling or bone deformity he reported Neuro Reports no additional complaints Psych Reports no additional complaints Endo Reports polydipsia and Reports polyuria Faisal/Lymph Denies easy bleeding and Denies easy bruising Aller/Immun Reports no additional complaints Physical exam (Primary Care) Vital Signs: Last Vital Signs Pulse 76 12/30/23 13:33 BP 134/68 12/30/23 13:33 Pulse Ox 98 12/30/23 13:33 Oxygen Delivery Method Room Air 12/30/23 13:33 BMI result Body Mass Index 32.3 Tobacco/Smoking Status: Tobacco use Status Tobacco use date assessed 12/30/23 12/30/23 13:43 Patient Tobacco Use Status Never used Tobacco 12/30/23 13:34 e-Cigarette/Vaping Use Never Used 12/30/23 13:34 Thrive Assessment: Date of Thrive Assessment Date Thrive assessed 12/30/23 12/30/23 13:43 Currently or been in a relationship where the following occur: No concerns reported Const General: no acute distress and alert Orientation/consciousness: patient oriented x3 HENMT Ears: TM's normal bilaterally and EAC's normal Mouth: Normal oral and palatal mucosa present and moist mucous membranes Throat: Yes posterior oropharynx normal Eyes General: appearance normal, both eyes and all related structures Neck Neck: Yes no lymphadenopathy and Yes supple Resp Effort & Inspection: normal respiratory effort Auscultation: clear to auscultation bilaterally Cardio Rhythm: regular rhythm Heart sounds: S1 normal heart sound present and S2 normal heart sound present GI Palpation (GI): Soft to palpation Percussion: Yes normal to percussion Auscultation: normal bowel sounds Neuro General: patient oriented x3, gait normal, tone normal, moves all extremities, Normal light touch and pain sensation and CN's II-XI intact bilaterally Extrem General: Yes full ROM, Yes no joint enlargement, Yes no pedal edema and Yes normal gait Results Reviewed Results Reviewed: Laboratory Tests 12/27/23 11:56 Estimat Average Glucose 194 Hemoglobin A1c % 8.4 H Name: Little,Williemae Age/Sex: 83/F : 1940 Unit#: [id number] Attend Dr: Inga Alvarenga MD Re12/27/23 Status: DEP REF Location: [facility] Disch: SPEC : [id number] ELIAN: 12/27/23 STATUS: COMP REQ : [id number] RECD: 12/27/23-[address]: Inga Alvarenga MD COMP: 12/27/23 ENTERED: 12/27/[address] [facility] [address]: ORDERED: Met Prof Fast, AST, ALT, Lipid Panel, Vitamin D 25-OH Test Result Flag Reference Sodium 140 135-145 mmol/L Potassium 4.4 3.3-5.1 mmol/L CL 104 96-108 mmol/L CO2 28 22-29 mmol/L Gap 12 12-20 BUN 15 9-16 mg/dL Creat 0.99 0.5-1.4 mg/dL EGFR 54 NOTE: For -[place] individuals, multiply the result by 1.210. Chronic Kidney Disease: Estimated GFR < 60 mL/min/1.73m2 Severe Kidney Disease: Estimated GFR < 15 mL/min/1.73m2 FBS 167 H 60-99 mg/dL A fasting glucose of 126 mg/dl or greater on more than one occasion is considered diagnostic of diabetes. CA 10.0 8.4-10.2 mg/dL AST (GOT) 15 5-31 U/L ALT (GPT) 9 0-31 U/L Triglyceride 53 <150 mg/dL Desirable Triglyceride: less than 150 mg/dL Borderline High Triglyceride 150-199 mg/dL High Triglyceride: 200-499 mg/dL Very High Triglyceride: greater than or equal to 5OO mg/dL Cholesterol 126 <200 mg/dL Desirable Cholesterol: less than 200 mg/dL Borderline High Cholesterol: 200-239 mg/dL High Cholesterol: greater than 239 mg/dL LDL Calculated 58 <100 mg/dL Desirable LDL: less than 100 mg/dL Near Optimal/Above Optimal LDL: 110-129 mg/dL Borderline High LDL: 130-159 mg/dL High LDL: 160-189 mg/dL Very High LDL: greater than or equal to 190 mg/dL HDL 58 >40 mg/dL Desirable HDL: greater than 40 mg/dL Note: This HDL assay may give artificially low results in patients with liver disease. Vit D 25-OH Tot 41.0 >30 ng/mL Health Based Reference Values* < 20 ng/mL Deficient 20-30 ng/mL Insufficient > 30 ng/mL Sufficient *Lynette BORJAS. N Engl J Med. 2007;[id number]:266-280 Care must be taken in interpreting Vitamin D results from different laboratories and methodologies. Published data demonstrated that results from patients undergoing hemodialysis may show a negative bias when tested with various automated 25-OH vitamin D assays when compared to LC-MS/MS. When testing samples from patients whose predominant form of Vitamin D is Vitamin D2, such as patients receiving Vitamin D2 supplementation, results that are subtherapeutic should be confirmed with another method such as LC-MS/MS. Coding Level of Care Code Est Pt Level 4 (47394) Complex EM visit Add On G2211 Diagnoses Pure hypercholesterolemia E78.00 Hyperlipidemia type: pure hypercholesterolemia Diabetes mellitus with hyperglycemia, without long-term current use of insulin E11.65 Essential hypertension I10 Assessment & Plan Assessment & Plan (1) Hyperlipidemia: Code(s): E78.5 - Hyperlipidemia, unspecified Category: Medical Qualifiers: Hyperlipidemia type: pure hypercholesterolemia Qualified Code(s): E78.00 - Pure hypercholesterolemia, unspecified Plan: Continue with atorvastatin 10 mg daily, continue with adherence to healthy eating habits and get regular exercise. Patient will [facility] per (2) Diabetes mellitus with hyperglycemia, without long-term current use of insulin: Code(s): E11.65 - Type 2 diabetes mellitus with hyperglycemia Category: Medical Plan: Diabetes control improving but still not at goal of less than 6.5%. Continued on metformin 1000 mg 1 tablet twice a day with meals. Unable to afford [employer] or [employer] prescription sent for pioglitazone 30 mg per tablet taken once a day. Continue with adherence to healthy eating habits and getting regular exercise. Reminded to get her flu vaccine and flu vaccine and COVID booster which she can get at the pharmacy (3) Essential hypertension: Code(s): I10 - Essential (primary) hypertension Category: Medical Plan: Continue nifedipine ER 90 mg daily, and carvedilol 3.125 mg 1 tablet twice a day. Followed by cardiology Orders: Orders Hemoglobin A1c 03/25/24 E11.65 - Type 2 diabetes mellitus with hyperglycemia, E78.00 - Pure hypercholesterolemia, unspecified, I10 - Essential (primary) hypertension, Z78.0 - Asymptomatic menopausal state Basic Metabolic Panel Fasting 03/25/24 E11.65 - Type 2 diabetes mellitus with hyperglycemia, E78.00 - Pure hypercholesterolemia, unspecified, I10 - Essential (primary) hypertension, Z78.0 - Asymptomatic menopausal state Lipid Panel 03/25/24 E11.65 - Type 2 diabetes mellitus with hyperglycemia, E78.00 - Pure hypercholesterolemia, unspecified, I10 - Essential (primary) hypertension, Z78.0 - Asymptomatic menopausal state Vitamin D 25-OH Total 03/25/24 E11.65 - Type 2 diabetes mellitus with hyperglycemia, E78.00 - Pure hypercholesterolemia, unspecified, I10 - Essential (primary) hypertension, Z78.0 - Asymptomatic menopausal state Vitamin B12 and Folate 03/25/24 E11.65 - Type 2 diabetes mellitus with hyperglycemia, E78.00 - Pure hypercholesterolemia, unspecified, I10 - Essential (primary) hypertension, Z78.0 - Asymptomatic menopausal state Aspartate Amino Transferase 03/25/24 E11.65 - Type 2 diabetes mellitus with hyperglycemia, E78.00 - Pure hypercholesterolemia, unspecified, I10 - Essential (primary) hypertension, Z78.0 - Asymptomatic menopausal state Alanine Aminotransferase 03/25/24 E11.65 - Type 2 diabetes mellitus with hyperglycemia, E78.00 - Pure hypercholesterolemia, unspecified, I10 - Essential (primary) hypertension, Z78.0 - Asymptomatic menopausal state Complete Blood Count Auto Diff 03/25/24 E11.65 - Type 2 diabetes mellitus with hyperglycemia, E78.00 - Pure hypercholesterolemia, unspecified, I10 - Essential (primary) hypertension, Z78.0 - Asymptomatic menopausal state Microalbumin, Random (w Creat) 03/25/24 E11.65 - Type 2 diabetes mellitus with hyperglycemia, E78.00 - Pure hypercholesterolemia, unspecified, I10 - Essential (primary) hypertension, Z78.0 - Asymptomatic menopausal state
== END 2023-12-30 14:44 | disposition home or self-care (01) ==
PROVIDERS: PCP Internal Medicine; Visit Provider Internal Medicine
DX: E78.00 Pure hypercholesterolemia, unspecified (principal); E11.65 Type 2 diabetes mellitus with hyperglycemia; I10 Essential (primary) hypertension

== ENCOUNTER → 2023-12-30 13:12 | Outpatient (BNVA) | payer MEDICARE, SELFPAY | PROVIDERS: PCP Internal Medicine; Visit Provider Internal Medicine | DX: E78.00 Pure hypercholesterolemia, unspecified (principal); E11.65 Type 2 diabetes mellitus with hyperglycemia; I10 Essential (primary) hypertension; Z79.84 Long term (current) use of oral hypoglycemic drugs; Z79.899 Other long term (current) drug therapy | CPT/HCPCS: 99212 ==

== ENCOUNTER 2024-06-08 11:19 | Outpatient (REF) | payer MEDICARE, SELFPAY ==
[2024-06-08 13:05] LABS: MANUAL DIFF FLAG NO
[2024-06-08 13:22] LABS: Basophils Percent Auto 0.5 % (0-2); Eosinophils Absolute Auto 0.3 X10*3/uL (0.0-0.4); Eosinophils Percent Auto 3.8 % (0-4); Hematocrit 36.4 % (37.0-47.0); Hemoglobin 11.5 g/dl (12.0-16.0); Imm Gran Abs Auto 0.04 X10*3/uL (0.00-0.03); Imm Gran Pct Auto 0.5 % (0.0-0.4); Lymphocytes Absolute Auto 2.1 X10*3/uL (1.2-4.9); Lymphocytes Percent Auto 24.3 % (20-40); Mean Corpuscular HGB Conc 31.6 g/dl (31.0-35.0); Mean Corpuscular Hemoglobin 27.3 pg (27.0-33.0); Mean Corpuscular Volume 86.5 fL (80.0-98.0); Mean Platelet Volume 12.1 fL (9.4-12.3); Monocytes Absolute Auto 0.7 X10*3/uL (0.1-1.2); Monocytes Percent Auto 7.6 % (2-11); Neutrophils Absolute Auto 5.4 x10*3/uL (2.0-8.3); Neutrophils Percent Auto 63.3 % (45-73); Platelet Count 269 X10*3/uL (160-400); Red Blood Count 4.21 X10*6/uL (4.20-5.50); Red Cell Distribution Width 13.5 % (11.0-16.0); White Blood Count 8.5 X10*3/uL (4.8-10.8)
[2024-06-08 13:34] LABS: Estimated Average Glucose 232 mg/dL; Hemoglobin A1c % 9.7 % (<6.0)
[2024-06-08 13:48] LABS: Creatinine Urine 56.68 mg/dL; Microalbum/Creatinine Ratio Ur 278.7 ug/mg cr (<30)
[2024-06-08 13:53] LABS: Alanine Aminotransferase 13 U/L (0-31); Anion Gap 13 (12-20); Aspartate Amino Transferase 23 U/L (5-31); Blood Urea Nitrogen 14 mg/dL (9-16); Calcium 9.8 mg/dL (8.4-10.2); Carbon Dioxide 29 mmol/L (22-29); Chloride 102 mmol/L (96-108); Cholesterol 152 mg/dL (<200); Estimated Glomerular Filt Rate > 60; Glucose Fasting 215 mg/dL (60-99); HDL Cholesterol 61 mg/dL (>40); LDL Cholesterol Calculated 80 mg/dL (<100); Potassium 3.7 mmol/L (3.3-5.1); Sodium 140 mmol/L (135-145); Triglycerides 58 mg/dL (<150)
[2024-06-08 14:00] LABS: Vitamin D 25-OH Total 40.6 ng/mL (>30)
[2024-06-08 14:21] LABS: Folate 16.9 ng/mL (> or = 4.0); Vitamin B12 897 pg/mL (200-900)
== END 2024-06-08 11:20 | disposition home or self-care (01) ==
LOC: HO.HMGCLDS 11:19
PROVIDERS: PCP Internal Medicine; Visit Provider Internal Medicine
DX: I10 Essential (primary) hypertension (principal); E11.65 Type 2 diabetes mellitus with hyperglycemia; E78.00 Pure hypercholesterolemia, unspecified; Z78.0 Asymptomatic menopausal state
CPT/HCPCS: 36415; 80048; 80061; 82043; 82306; 82570; 82607; 82746; 83036; 84450; 84460; 85025

== ENCOUNTER 2024-06-14 10:53 | Outpatient (AMB) | payer MEDICARE, SELFPAY ==
[2024-06-14 11:16] VITALS: BP 138/76; PULSE 88; O2SAT 96
--- NOTE | 2024-06-14 11:16 | MHC.OFFWIV ---
Intake Vital Signs 06/14/24 11:16 Weight 187 lb BP 138/76 Blood Pressure Location Rt brachial Position Sitting Pulse 88 Pulse Source Pulse Oximeter Pulse Oximetry (%) 96 Oxygen Delivery Method Room Air Intake Visit Reasons: EP swollen bump on RT heel Intake Note: Patient here for swollen bump on right heel that has been present for a while but is now starting to affect her ankle. Patient Tobacco Use Status: Never used Tobacco Allergies latex Allergy (Mild, Verified 06/14/24 11:17) Cough Medication List - Last Reconciled 06/14/24 by Mo Vieira MD atorvastatin 10 mg PO DAILY blood sugar diagnostic ([email or web address] Ultra Test strips) Check fasting glucose twice a day ac blood-glucose meter (Omn[employer]Touch Ultra2 Meter) Check fasting blood sugar twice a day before meals carvedilol 3.125 mg PO BID lancets Check fasting blood sugar twice a day ac metformin 1,000 mg PO BIDWMEAL nifedipine ER 90 mg PO DAILY Do you need a note to return to daycare/school/sports/work: No HPI EP swollen bump on RT heel HPI Details Chief complaint bump back of right foot chronic Hurts off and on, has not been evaluated by primary care before No difficulty walking, but hurts if pressed On examination patient is feeling tension in that area with dorsiflexion of foot And if pressed Problem List - Chronic Tendonitis of the Right Ankle Patient Instructions - Continue taking Tylenol as needed for pain relief. - Wear shoes that do not press on the back of the heel or ankle to prevent exacerbation of symptoms. - Avoid wearing shoes that may cause discomfort when walking. - Follow up with a primary care physician via a scheduled telephone appointment in two days to discuss x-ray results. - Consider seeing an medical reimbursement specialist depending on x-ray findings. - Proceed to the designated lab for x-rays as discussed. Review of Systems - General: No fever no chills - Neurological: No headaches no dizziness - Ear nose throat: No sore throat no hearing difficulty no ear pain - Cardiovascular: No syncope, no chest pain, no palpitations - Gastrointestinal: No nausea vomiting or diarrhea Physical Exam General: No acute distress HEENT: No acute findings Neck: Supple Respiratory system: Able to talk in full sentences, no audible wheeze Gastrointestinal: No pain Extremities: Right foot pain, swelling insertion of Achilles tendon right, tenderness upon palpation SERVER ADMINISTRATOR: Alert awake oriented x3 motor sensory intact Skin: Normal turgor PFSH Medical History Essential hypertension Diabetes mellitus with hyperglycemia, without long-term current use of insulin Memory loss Hyperlipidemia Surgical History S/P right knee surgery Hx of section S/P cholecystectomy Hx of total knee replacement Family History Father Hypertension Stroke Mental health disorder Mother Hypertension Sister Tuberculosis Social History Household Members Other:: lives with daughter Housing: House Patient Tobacco Use Status: Never used Tobacco e-Cigarette/Vaping Use: Never Used Current occupational status: retired Cognitive needs: No Hearing needs: No Vision needs: Yes Physical Exam Vital Signs: Last Vital Signs Pulse 88 06/14/24 11:16 BP 138/76 06/14/24 11:16 Pulse Ox 96 06/14/24 11:16 Oxygen Delivery Method Room Air 06/14/24 11:16 Extrem Upper/lower leg/hip images: 1. Site of lump and pain, no overlying skin findings, neurovascular intact, discomfort with dorsiflexion over the lump Assessment & Plan Assessment & Plan (1) Achilles tendinitis of left lower extremity: Code(s): M76.62 - Achilles tendinitis, left leg Plan Chief complaint bump back of right foot chronic Hurts off and on, has not been evaluated by primary care before No difficulty walking, but hurts if pressed On examination patient is feeling tension in that area with dorsiflexion of foot And if pressed Problem List - Chronic Tendonitis of the Right Ankle Patient Instructions - Continue taking Tylenol as needed for pain relief. - Wear shoes that do not press on the back of the heel or ankle to prevent exacerbation of symptoms. - Avoid wearing shoes that may cause discomfort when walking. - Follow up with a primary care physician via a scheduled telephone appointment in two days to discuss x-ray results. - Consider seeing an medical reimbursement specialist depending on x-ray findings. - Proceed to the designated lab for x-rays as discussed. Orders: Orders XR foot LT 2V Today M76.62 - Achilles tendinitis, left leg Coding Level of Care Code Est Pt Level 3 (79998) Diagnoses Achilles tendinitis of left lower extremity M76.62
== END 2024-06-14 11:47 | disposition home or self-care (01) ==
PROVIDERS: PCP Internal Medicine; Visit Provider Internal Medicine
DX: M76.62 Achilles tendinitis, left leg (principal)

== ENCOUNTER 2024-06-14 10:53 | Outpatient (REF) | payer MEDICARE, SELFPAY ==
--- NOTE | ~2024-06-14 | XR_ITS ---
EXAMINATION: XR FOOT 1-2 VIEWS RIGHT HISTORY: M76.62 - Achilles tendinitis, rt leg COMPARISON: There are no prior studies available for comparison. FINDINGS: Three views of the right foot are submitted. The bones are osteopenic. There is no fracture or dislocation. 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 There is a moderate-sized plantar calcaneal spur. An additional calcaneal spur is seen at the insertion of the Achilles tendon. The soft tissues are unremarkable. XR/XR foot RT 2V IMPRESSION: Mild intertarsal osteoarthritis. Calcaneal spurs as described. Electronically signed by: José Esteban MD 06/15/2024 09:09 AM EDT
== END 2024-06-14 10:54 | disposition home or self-care (01) ==
LOC: HO.HMGCX 10:53
PROVIDERS: PCP Internal Medicine; Visit Provider Internal Medicine
DX: M76.61 Achilles tendinitis, right leg (principal)
CPT/HCPCS: 73620; 99212

== ENCOUNTER → 2024-06-14 11:41 | Outpatient (BNV) | payer MEDICARE, SELFPAY | PROVIDERS: PCP Internal Medicine; Visit Provider Radiology Diagnostic Radiology | DX: M77.31 Calcaneal spur, right foot (principal) | CPT/HCPCS: 73620 ==

== ENCOUNTER 2024-06-16 08:20 | Outpatient (AMB) | payer MEDICARE, SELFPAY ==
--- NOTE | 2024-06-16 08:21 | A.OFFPC_ITS ---
Intake Visit Reasons: discuss recent lab results iphone [phone] Allergies latex Allergy (Mild, Verified 06/16/24 09:19) Cough Medication List - Last Reconciled 06/16/24 by Inga Alvarenga MD atorvastatin 10 mg PO DAILY blood sugar diagnostic (OneTouch Ultra Test strips) Check fasting glucose twice a day ac blood-glucose meter (OneTouch Ultra2 Meter) Check fasting blood sugar twice a day before meals carvedilol 3.125 mg PO BID lancets Check fasting blood sugar twice a day ac metformin 1,000 mg PO BIDWMEAL nifedipine ER 90 mg PO DAILY Tobacco use date assessed: 06/16/24 Fall risk assessment: No Falls in past year Last assessed Fall Risk: 06/16/24 Dental Screening Dental Screen Date: 06/16/24 Did you have a dental visit in the last 12 months?: Yes Did you have a dental problem in the last 6 months where you did not have access to dental care?: No Was dental information given to patient?: Patient has dentist HPI discuss recent lab results iphone [phone] HPI Details 83-year-old lady with hypertension, hype rlipidemia, and diabetes mellitus, here today for follow-up. She is only taking metformin a 1000 mg 1 tablet twice a day. Her latest hemoglobin A1c however is at 9.7%. Patient admits to forgetting to take sometimes her 2nd dose of metformin, but tries to adhere to recommended diet. Her fasting lipids however are within normal limits as well as her renal function. Patient also mentions that she was seen recently at the walk-in clinic complaining of pain in her left feel. 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 She is requesting to be referred to a foot doctor but does not want to go and see her previous 1 at [facility] podiatry.. [facility] Medical History (Updated 06/16/24 @ 09:26 by Inga Alvarenga MD) Intractable heel pain Tinea unguium Essential hypertension Diabetes mellitus with hyperglycemia, without long-term current use of insulin Memory loss Hyperlipidemia Surgical History S/P right knee surgery Hx of section S/P cholecystectomy Hx of total knee replacement Family History Father Hypertension Stroke Mental health disorder Mother Hypertension Sister Tuberculosis Social History Household Members Other:: lives with daughter Housing: House Patient Tobacco Use Status: Never used Tobacco e-Cigarette/Vaping Use: Never Used Current occupational status: retired Cognitive needs: No Hearing needs: No Vision needs: Yes Questionnaire PHQ-9 Over the last 2 weeks, how often have you been bothered by any of the following problems? 1. Little interest or pleasure in doing things: several days 2. Feeling down, depressed, or hopeless: not at all 3. Trouble falling or staying asleep, or sleeping too much: not at all 4. Feeling tired or having little energy: more than half the days 5. Poor appetite or overeating: several days 6. Feeling bad about yourself - or that you are a failure or have let yourself or your family down: not at all 7. Trouble concentrating on things, such as reading the newspaper or watching television: not at all 8. Moving or speaking so slowly that other people could have noticed. Or the opposite - being so fidgety or restless that you have been moving around a lot more than usual: not at all 9. Thoughts that you would be better off or of hurting yourself in some way: not at all Total score: 4 Depression Screening Interpretation: Negative Depression Screening Done: Yes 75604 - PHQ-9 Billing: Yes Source: Developed by Drs. José Scott, Radha Cool, Carlos Blanco and colleagues, with an educational néstor from [employer]. Thrive Questionnaire Date Thrive assessed: 06/16/24 I am a: Patient What is your living situation today?: I have a steady place to live Within the past 12 months, did the food you bought not last and you didn't have the money to get more?: Never true Within the past 12 months, did you worry whether your food would run out before you got money to buy more?: Never true Do you have trouble paying for medicines?: Yes Do you have trouble getting transportation to medical appointments?: No Do you have trouble paying your heating and electricity bill?: Yes Do you have trouble taking care of your child, family member or friend?: No Do you have trouble with day-to-day activities such as bathing, preparing meals, shopping, managing finances, etc.?: Yes Are you currently unemployed and looking for a job?: Yes Are you interested in more education?: No Currently or been in a relationship where the following occur: No concerns reported THRIVE Score: 1 AUDIT C Alcohol Use Questionnaire (AUDIT-C) 1. How often do you have a drink containing alcohol?: Never 3. How often do you have six or more drinks on one occasion?: Never Total Score: 0 Score Reviewed/Action Taken: Yes JUSTUS-7 AMB Questionnaire JUSTUS-7 Date JUSTUS - 7 assessed: 06/16/24 Feeling nervous, anxious, or on edge: 1 = Several days Not being able to stop or control worryin = Several days Worrying too much about different things: 1 = Several days Trouble relaxin = Not at all Being so restless that it is hard to sit still: 0 = Not at all Becoming easily annoyed or irritable: 1 = Several days Feeling afraid as if something awful might happen: 0 = Not at all Total JUSTUS-7 score (0-4 normal; 5-9 mild; 10-14 moderate; 15-21 severe): 4 Source: Developed by Drs. José Scott, Radha Cool, Carlos Blanco and colleagues, with an educational néstor from [employer]. JUSTUS-7 Assessment Billing JUSTUS-7 Assessment Tool: JUSTUS-7 Assessment 40426 Review of Systems Eyes Details: Overdue for diabetes retinopathy screening Denies change in vision ENT Details: Decreased hearing both ears Denies ear discharge, Denies otalgia and Denies nasal congestion Card Denies chest pain, Denies rapid heart rate, Denies pedal edema, Denies irregular heart rhythm and Denies dyspnea Resp Denies cough and Denies dyspnea GI Reports no additional complaints Denies hematuria, Denies difficulty voiding and Denies dysuria Musc Details: Occasional stiffness in joints, no swelling or bone deformity he reported Neuro Reports no additional complaints Psych Reports no additional complaints Endo Reports polydipsia and Reports polyuria Faisal/Lymph Denies easy bleeding and Denies easy bruising Aller/Immun Reports no additional complaints Physical exam (Primary Care) Tobacco/Smoking Status: Tobacco use Status Tobacco use date assessed 06/16/24 06/16/24 08:23 Patient Tobacco Use Status Never used Tobacco 06/16/24 08:23 e-Cigarette/Vaping Use Never Used 06/16/24 08:23 PHQ-9: PHQ-9 Score PHQ-9: Total score 4 06/16/24 09:34 Depression Screening Interpretation: Negative Thrive Assessment: Date of Thrive Assessment Date Thrive assessed 06/16/24 06/16/24 08:23 Currently or been in a relationship where the following occur: No concerns reported Telehealth Telehealth Telehealth Platform: [facility] Location of provider rendering services: practice address Location of patient: address on file Patient Identification confirmed using: Name, : Yes Telehealth method: video Patient verbally consented to treatment: Yes Patient verbally consented to billing insurance company: Yes Patient informed of any privacy concerns related to visit: Yes Minutes spent on Phone/Video with Pt.: 15 Results Reviewed Results Reviewed: Name: Ely Little Age/Sex: 83/F : 1940 Unit#: [id number] Attend Dr: Inga Alvarenga MD Re06/08/24 Status: DEP REF Location: [facility] Disch: SPEC : [id number] ELIAN: 06/08/24 STATUS: COMP REQ : [id number] RECD: 06/08/24-[address]: Inga Alvarenga MD COMP: 06/08/24 ENTERED: 06/08/[address]: ORDERED: CBC Auto Diff Test Result Flag Reference WBC 8.5 4.8-10.8 X10*3/uL RBC 4.21 4.20-5.50 X10*6/uL HGB 11.5 L 12.0-16.0 g/dl HCT 36.4 L 37.0-47.0 % MCV 86.5 80.0-98.0 fL MCH 27.3 27.0-33.0 pg MCHC 31.6 31.0-35.0 g/dl RDW 13.5 11.0-16.0 % PLT 269 160-400 X10*3/uL MPV 12.1 9.4-12.3 fL Neut Pct Auto 63.3 45-73 % ImGran Pct Auto 0.5 H 0.0-0.4 % Lymp Pct Auto 24.3 20-40 % [place] Pct Auto 7.6 2-11 % Eos Pct Auto 3.8 0-4 % Baso Pct Auto 0.5 0-2 % NRBC Pct Auto 0.0 0.0-0.2 /100WBC ANC Neut Abs # 5.4 2.0-8.3 x10*3/uL ImGran Abs Auto 0.04 H 0.00-0.03 X10*3/uL Lymph Abs Auto 2.1 1.2-4.9 X10*3/uL [place] Abs Auto 0.7 0.1-1.2 X10*3/uL Eos Abs Auto 0.3 0.0-0.4 X10*3/uL Baso Abs Auto 0.0 0.0-0.2 X10*3/uL NRBC Abs Auto 0.000 0.0-0.012 X10*3/uL Name: Ely Little Age/Sex: 83/F : 1940 Unit#: [id number] Attend Dr: Inga Alvarenga MD Re06/08/24 Status: DEP REF Location: [facility] Disch: SPEC : [id number] ELIAN: 06/08/24 STATUS: COMP REQ : [id number] RECD: 06/08/24-[address]: Inga Alvarenga MD COMP: 06/08/24-1399 ENTERED: 06/08/24-[address] [facility] [address]: ORDERED: Met Prof Fast, AST, ALT, Lipid Panel, Vitamin D 25-OH Test Result Flag Reference Sodium 140 135-145 mmol/L Potassium 3.7 3.3-5.1 mmol/L CL 102 96-108 mmol/L CO2 29 22-29 mmol/L Gap 13 12-20 BUN 14 9-16 mg/dL Creat 0.86 0.5-1.4 mg/dL eGFR > 60 Chronic Kidney Disease: Estimated GFR < 60 mL/min/1.73m2 Severe Kidney Disease: Estimated GFR < 15 mL/min/1.73m2 FBS 215 H 60-99 mg/dL A fasting glucose of 126 mg/dl or greater on more than one occasion is considered diagnostic of diabetes. CA 9.8 8.4-10.2 mg/dL AST (GOT) 23 5-31 U/L ALT (GPT) 13 0-31 U/L Triglyceride 58 <150 mg/dL Desirable Triglyceride: less than 150 mg/dL Borderline High Triglyceride 150-199 mg/dL High Triglyceride: 200-499 mg/dL Very High Triglyceride: greater than or equal to 5OO mg/dL Cholesterol 152 <200 mg/dL Desirable Cholesterol: less than 200 mg/dL Borderline High Cholesterol: 200-239 mg/dL High Cholesterol: greater than 239 mg/dL LDL Calculated 80 <100 mg/dL Desirable LDL: less than 100 mg/dL Near Optimal/Above Optimal LDL: 110-129 mg/dL Borderline High LDL: 130-159 mg/dL High LDL: 160-189 mg/dL Very High LDL: greater than or equal to 190 mg/dL HDL 61 >40 mg/dL Desirable HDL: greater than 40 mg/dL Note: This HDL assay may give artificially low results in patients with liver disease. Vitamin D 25-OH 40.6 >30 ng/mL Health Based Reference Values* < 20 ng/mL Deficient 20-30 ng/mL Insufficient > 30 ng/mL Sufficient Laboratory Tests 06/08/24 11:22 Estimat Average Glucose 232 Hemoglobin A1c % 9.7 H Urine Creatinine 56.68 Urine Microalbumin 158.0 Microalb/Creat Ratio 278.7 H Coding Level of Care Code Tele Est Pt Level 4 (52564) Complex EM visit Add On G2211 Diagnoses Diabetes mellitus with hyperglycemia, without long-term current use of insulin E11.65 Achilles tendinitis of left lower extremity M76.62 Tinea unguium B35.1 Intractable heel pain M79.673 Pure hypercholesterolemia E78.00 Hyperlipidemia type: pure hypercholesterolemia Additional Codes JUSTUS-7 Assessment Billing - JUSTUS-7 Assessment Tool: JUSTUS-7 Assessment 63004 ([id number]) PHQ-9 - 70655 - PHQ-9 Billing: Yes ([id number]) Assessment & Plan Assessment & Plan (1) Diabetes mellitus with hyperglycemia, without long-term current use of insulin: Code(s): E11.65 - Type 2 diabetes mellitus with hyperglycemia Category: Medical Plan: Diabetes mellitus not controlled, will continue metformin at the same dose and against stressed importance of taking medications as directed and on time. She has used Trulicity in the past with improvement in her glucose control noted at that time but patient states insurance will not cover Trulicity anymore. Rx then sent for Ozempic 0.25 mg injected once a week. Discussed against some po ssible side effects of medication. Will see her back for follow-up in September 2024, , reminded to get her labs done prior to next visit (2) Achilles tendinitis of left lower extremity: Code(s): M76.62 - Achilles tendinitis, left leg Category: Medical Plan: Podiatry consult ordered to see Dr. Baig (3) Tinea unguium: Code(s): B35.1 - Tinea unguium Category: Medical Plan: Podiatry consult ordered with Dr. Baig (4) Intractable heel pain: Code(s): M79.673 - Pain in unspecified foot Category: Medical Plan: Podiatry consult ordered with Dr. Baig (5) Hyperlipidemia: Code(s): E78.5 - Hyperlipidemia, unspecified Category: Medical Qualifiers: Hyperlipidemia type: pure hypercholesterolemia Qualified Code(s): E78.00 - Pure hypercholesterolemia, unspecified Plan: Labs are within normal limits, continue atorvastatin 10 mg daily Orders: Orders Aspartate Amino Transferase 09/12/24 E11.65 - Type 2 diabetes mellitus with hyperglycemia, E78.00 - Pure hypercholesterolemia, unspecified, I10 - Essential (primary) hypertension Vitamin D 25-OH Total 09/12/24 E11.65 - Type 2 diabetes mellitus with hyperglycemia, E78.00 - Pure hypercholesterolemia, unspecified, I10 - Essential (primary) hypertension Basic Metabolic Panel Fasting 09/12/24 E11.65 - Type 2 diabetes mellitus with hyperglycemia, E78.00 - Pure hypercholesterolemia, unspecified, I10 - Essential (primary) hypertension Hemoglobin A1c 09/12/24 E11.65 - Type 2 diabetes mellitus with hyperglycemia, E78.00 - Pure hypercholesterolemia, unspecified, I10 - Essential (primary) hypertension Alanine Aminotransferase 09/12/24 E11.65 - Type 2 diabetes mellitus with hyperglycemia, E78.00 - Pure hypercholesterolemia, unspecified, I10 - Essential (primary) hypertension TSH reflex Free T4 09/12/24 E11.65 - Type 2 diabetes mellitus with hyperglycemia, E78.00 - Pure hypercholesterolemia, unspecified, I10 - Essential (primary) hypertension Lipid Panel 09/12/24 E11.65 - Type 2 diabetes mellitus with hyperglycemia, E78.00 - Pure hypercholesterolemia, unspecified, I10 - Essential (primary) hypertension Referrals Podiatry Referral B35.1 - Tinea unguium, E11.65 - Type 2 diabetes mellitus with hyperglycemia, M76.62 - Achilles tendinitis, left leg, M79.673 - Pain in unspecified foot Medications: New Ozempic (semaglutide) for 4 weeks 0.25 mg (0.368 mL) subcut QWEEK 1 month 3 mL 3RF NS E11.65 - Type 2 diabetes mellitus with hyperglycemia, E66.3 - Overweight, E78.00 - Pure hypercholesterolemia, unspecified, I10 - Essential (primary) hypertension Refilled atorvastatin 10 mg PO DAILY 90 tabs 4RF carvedilol 3.125 mg PO BID 180 tabs 4RF nifedipine ER 90 mg PO DAILY 90 tabs 1RF
== END 2024-06-16 10:05 | disposition home or self-care (01) ==
LOC: HO.HMCC 08:20
PROVIDERS: PCP Internal Medicine; Visit Provider Internal Medicine
DX: E11.65 Type 2 diabetes mellitus with hyperglycemia (principal); M76.62 Achilles tendinitis, left leg; B35.1 Tinea unguium; M79.672 Pain in left foot; E78.00 Pure hypercholesterolemia, unspecified

== ENCOUNTER → 2024-06-16 08:20 | Outpatient (BNVA) | payer MEDICARE, SELFPAY | PROVIDERS: PCP Internal Medicine; Visit Provider Internal Medicine | DX: I10 Essential (primary) hypertension (principal); E11.65 Type 2 diabetes mellitus with hyperglycemia; M76.62 Achilles tendinitis, left leg; B35.1 Tinea unguium; M79.673 Pain in unspecified foot; E78.00 Pure hypercholesterolemia, unspecified; Z79.84 Long term (current) use of oral hypoglycemic drugs | CPT/HCPCS: 96127 ==

== ENCOUNTER 2024-09-29 09:56 | Outpatient (REF) | payer MEDICARE, SELFPAY ==
--- OUTSIDE RECORDS SUMMARY | 2024-09-29 10:13 | XMS_ITS | Clinical Summary ---
Author Organization [facility] Address [address] [place] [id number] Phone Care Team Providers Care Track Oiler Name Role Phone Pcp, Unknown Primary Care Provider Unavailabl e Allergies Active Allergy Reactions Criticality Noted Date Comments Latex 06/26/2024 Medications atorvastatin (LIPITOR) 10 MG tablet Take 1 tablet by mouth every morning. 04/17/2024 Active carvedilol (COREG) 3.125 MG tablet Take 1 tablet by mouth 2 (two) times a day. 06/16/2024 Active metFORMIN (GLUCOPHAGE) 1000 MG tablet Take 1,000 mg by mouth 2 (two) times a day with meals. 06/08/2024 Active NIFEdipine (ADALAT CC) 90 MG 24 hr tablet Take 1 tablet by mouth every morning. 06/16/2024 Active OZEMPIC 0.25 mg or 0.5 mg (2 mg/3 mL) subcutaneous injection pen Inject 0.25 mg under the skin every 7 days. 06/20/2024 Active Encounters Date Type Department Care Team Description 07/27/2024 11:30 AM EDT Office Visit [facility] [address] [place] [id number] Kalli Sagastume MD Enthesopathy of ankle and tarsus (Primary Dx) from Last 3 Months Social History Tobacco Use Types Packs/Day Years Used Date Smoking Tobacco: Never Assessed Education Answer Date Recorded Are you interested in more education? Not on gustavo e 08/07/2023 Are you concerned about learning? Not on file 08/07/2023 No 08/07/2023 No 08/07/2023 Food Answer Date Recorded Within the past 6 months we worried whether our food would run out before we got money to buy more. Often True 06/26/2024 Within the past 6 months the food we bought just didn't last and we didn't have enough money to get more. Often True Residential Stability Answer Date Recor ded What is your housing situation today? I have zenaida vasques 06/26/2024 How many times have you move d in the past 12 months? Zero (I did not move) 06/26/2024 Paying for Meds Answer Date Recorded Do you have trouble paying for medicines? No 06/26/2024 Paying Utility Bills Answer Date Record ed Do you have trouble paying your heating or elect ricity bill? Yes 06/26/2024 Transportation Answer Date Recorded Has the lack of transportati on kept you from medical appointments or from getting medications? No 06/26/2024 Digital Access Answer Date Recorded No 06/26/2024 Yes 06/26/2024 Do you have reliable internet access at home? Ye s 06/26/2024 Do you have a device (e.g., phone, tablet, computer) with a working camera? Yes 06/26/2024 Intimate Partner Violence Answer Date R ecorded Are you denied basic needs s uch as food, clothing, or medical care? No 06/26/2024 In the past 12 months have y ou been in a relationship with a person who hurts, threatens, or tries to control you? No 06/26/2024 Are you denied basic needs s uch as food, clothing, or medical care? No 06/26/2024 In the past 12 months have y ou been in a relationship with a person who hurts, threatens, or tries to control you? No 06/26/2024 Comments Unknown Sex and Gender Information Value Date Recorded Sex Assigned at Female 08/07/2023 2:02 PM EDT Legal Sex Female 1:29 PM EDT Gender Identity Female 08/07/2023 2:02 PM EDT Sexual Orientation Straight 08/07/2023 2: 02 PM EDT Last Filed Vital Signs Vital Sign Reading Time Taken Comments Blood Pressure 151/71 06/26/2024 8:15 PM EDT Pulse 91 06/26/2024 5:16 PM EDT Temperature 36.2 C (97.2 F) 06/26/2024 8:32 PM EDT Respiratory Rate 18 06/26/2024 8:32 PM EDT Oxygen Saturation 100% 06/26/2024 8:15 PM EDT Inhaled Oxygen Concentration - - Weight 79.8 kg (176 lb) 06/26/2024 3:22 PM EDT Height 165.1 cm (5' 5 ) 06/26/2024 3:22 PM EDT Body Mass Index 29.29 06/26/2024 3:22 PM EDT Plan of Treatment Health Maintenance Due Date Last Done Comments Adult Td,Tdap Booster 1940 DEPRESSION SCREENING 1952 ZOSTER VACCINES (1 of 2) 11/22/1991 OSTEOPOROSIS SCREENING INITIAL (ONE-TIME) 2006 RSV VACCINE (1 - 1-dose 75+ series) 2016 COVID-19 VACCINE ( season) 2024 03/31/2024, 01/06/2023, 01/23/2022, Additional history exists CREATININE LEVEL 06/26/2025 06/26/2024 PNEUMOCOCCAL VACCINES (50+ years) Completed 04/13/2023, 06/03/2022 HEPATITIS A VACCINES Aged Out No long er eligible based on patient's age to complete this topic HIB VACCINES Aged Out No longer eligi ble based on patient's age to complete this topic MENINGOCOCCAL VACCINES (ACWY) Aged Out No longer eligible based on patient's age to complete this topic MENINGOCOCCAL VACCINES (B) Aged Out N o longer eligible based on patient's age to complete this topic Medical Devices Not on file Procedures Procedure Name Priority Date/Time Associated Diagnosis Comments BASIC METABOLIC PANEL STAT 06/26/2024 6:54 PM EDT from Last 3 Months or Most Recently Relevant to Health Maintenance Results * (ABNORMAL) Basic metabolic panel (06/26/2024 6:54 PM EDT) SODIUM 138 133 - 146 mmol/L [facility] CHLORIDE 103 96 - 108 mmol/L [facility] POTASSIUM 4.3 3.3 - 5.1 mmol/L [facility] CO2 27 21 - 35 mmol/L [facility] BUN 17 6 - 19 mg/dL [facility] CREATININE 0.90 0.5 - 1.5 mg/dL [facility] GLUCOSE 155(H) 70 - 99 mg/dL [facility] CALCIUM 9.5 8.4 - 10.3 mg/dL [facility] EGFR 64 >59 mL/min/1.7 3m2 [facility] Comment:Estimated glomerular filtration rate calculated using the CKD-EPI refit equation. ANION GAP 12 10 - 20 mmol/L [facility] Blood 06/26/2024 6:54 PM EDT 06/26/2024 6:57 PM EDT Augustine Choi PA-C LAB BLOOD ORDERABLES Final R esult Performing Organization Address City/State/[facility] Co de Phone Number [facility] [address] [place] [address] from Last 3 Months or Most Recently Relevant to Health Maintenance Insurance MEDICARE REPLACEMENT [facility] MEDICARE REPLACEMENT Care Teams Track Oiler Relationship Specialty Start Date End Date Pcp, Unknown PCP - General 08/07/23 Additional Source Comments The information contained in this document represents components of the legal health record. It is not the complete legal health record.[facility]
--- OUTSIDE RECORDS SUMMARY | 2024-09-29 10:13 | XMS_ITS | Patient Health Record ---
Author Organization [facility] Address [address] [place] [address] Care Team Providers Care Cable Splicer Assistant Name Role Phone Catalino PLUMMER, Erin Primary Care Provider Familia Avery Unavailable [phone] Allergies Allergen (clinical drug ingredient) Drug/Non Drug Allergy documented on EMR Reaction Allergy Type Onset Date Status pioglitazone Actos Unknown Drug Allergy Acti ve Reason For Referral No Information Medications Medication SIG (Take, Route, Frequency, Duration) Notes Start Date End Date Status Atorvastatin Calcium 20 MG TK 1 T PO QPM Oral; Duration: 90 Active Carvedilol 3.125 MG TK 1 T PO BID Oral; Duration: 90 Active Aspirin Active Vitamin D3 2000 UNIT 1 capsule Orally On day 03/05/2017 Active Arthri-Flex Advantage Active Extra Depth Diabetic Shoes with 3 Pair Custom heat-molded multi-density innersoles for 1 year Dx: 03/05/2017 Active Glimepiride 2 MG TK 1 T PO BID Oral; Duration: 90 Active metFORMIN HCl 1000 MG TK 1 T PO BID Oral ; Duration: 90 Active NIFEdipine ER Osmotic Release 90 MG TK 1 T PO ONCE A DAY Oral; Duration: 90 Active traMADol HCl 50 MG (Schedule IV Drug) T K 1 T PO TID PRN FOR PAIN Oral; Duration: 30 Active Social History Tobacco Use: Social History Observation Description Date Details (start date - stop date) Never Smoker NA - NA Tobacco Use/Smoking Question Answer Notes Are you a: nonsmoker Additional Findings: Tobacco Non-User Current no n-smoker Alcohol Screen Question Answer Notes Did you have a drink containing alcohol in the p ast year? No Points 0 Interpretation Negative Tobacco use other than smoking: Question Answer Notes Are you an other tobacco user? No Problems Problem Type SNOMED Code ICD Code Onset Dates Problem Status W/U Status Risk Notes Problem Localized, primary osteoarthritis of the ankle and/or foot (662881022) Primary osteoarthrit is, right ankle and foot (M19.071) Active confirmed Problem Localized, primary osteoarthritis of the ankle and/or foot (194348927) Primary osteoarthrit is, left ankle and foot (M19.072) Active confirmed Problem Acquired hammer toe of right foot (4336268102938055) Other hammer toe(s) (acquired), right foot (M20.41) Active confirmed Problem Acquired hammer toe of left foot (9168737824585321) Other hammer toe(s) (acquired), left foot (M20.42) Active confirmed Plan Of Treatment Pending Test Test Name Order Date X ray : Foot, left 2V 03/05/2017 X ray : Foot, right 3V 03/05/2017 [id number] NAIL, 6 OR MORE 03/05/2017 [id number] SKIN LESIONS, 2 TO 4 03/05/20 17 Insurance Providers Payer Name Payer Address Payer Phone Subscriber Number Group Number Insured Name Patient Relationship to Insured Coverage Start Date Coverage End Date [facility] Medicare Complete [address] [address] [place] [address] [id number] Jerome Little Self - patient is the insured Medical (General) History Medical History History ICD Code Arthritis Back,Hip,and Knee pain Depression Diabetic Hypertension Surgical History Surgery Date(Month/Year) gall bladder 3 years ago section 1975 cataract surgery 2016
[2024-09-29 13:16] LABS: Hemoglobin A1C 163.2493 umol/L; Total Hemoglobin (HGBA1C) 2926.7420 umol/L
[2024-09-29 13:32] LABS: Alanine Aminotransferase 7 U/L (0-31); Anion Gap 11 (12-20); Aspartate Amino Transferase 20 U/L (5-31); Blood Urea Nitrogen 12 mg/dL (9-16); Calcium 9.2 mg/dL (8.4-10.2); Carbon Dioxide 27 mmol/L (22-29); Chloride 108 mmol/L (96-108); Cholesterol 120 mg/dL (<200); Estimated Glomerular Filt Rate > 60; HDL Cholesterol 50 mg/dL (>40); Potassium 3.8 mmol/L (3.3-5.1); Sodium 142 mmol/L (135-145); Triglycerides 46 mg/dL (<150)
== END 2024-09-29 09:57 | disposition home or self-care (01) ==
LOC: HO.HMGCLDS 09:56
PROVIDERS: PCP Internal Medicine; Visit Provider Internal Medicine
DX: E11.65 Type 2 diabetes mellitus with hyperglycemia (principal); I10 Essential (primary) hypertension; E78.00 Pure hypercholesterolemia, unspecified
CPT/HCPCS: 36415; 80048; 80061; 82306; 83036; 84443; 84450; 84460

== ENCOUNTER 2024-10-03 08:04 | Outpatient (AMB) | payer MEDICARE, SELFPAY ==
--- OUTSIDE RECORDS SUMMARY | 2024-10-03 08:08 | XMS_ITS | Clinical Summary ---
Author Organization [facility] Address [address] [place] [id number] Phone Care Team Providers Care District Sales Manager Name Role Phone Pcp, Unknown Primary Care [...] Description 07/27/2024 11:30 AM EDT Office Visit [facility] [address] [place] [id number] Kalli Sagastume MD Enthesopathy of ankle and [...] EDT) SODIUM 138 133 - 146 mmol/L [facility] CHLORIDE 103 96 - 108 mmol/L [facility] POTASSIUM 4.3 3.3 - 5.1 mmol/L [facility] CO2 27 21 - 35 mmol/L [facility] BUN 17 6 - 19 mg/dL [facility] CREATININE 0.90 0.5 - 1.5 mg/dL [facility] GLUCOSE 155(H) 70 - 99 mg/dL [facility] CALCIUM 9.5 8.4 - 10.3 mg/dL [facility] EGFR 64 >59 mL/min/1.7 3m2 [facility] Comment:Estimated glomerular filtration rate calculated using the CKD-EPI refit equation. ANION GAP 12 10 - 20 mmol/L [facility] Blood 06/26/2024 6:54 PM EDT 06/26/2024 6:57 PM EDT Augustine Choi PA-C LAB BLOOD ORDERABLES Final R esult Performing Organization Address City/State/[facility] Co de Phone Number [facility] [address] [place] [address] from Last 3 Months or Most Recently Relevant to Health Maintenance Insurance MEDICARE REPLACEMENT [facility] MEDICARE REPLACEMENT Care Teams District Sales Manager Relationship Specialty Start Date End Date Pcp, Unknown PCP - General 08/07/23 Additional Source Comments The information contained in this document represents components of the legal health record. It is not the complete legal health record.[facility]
--- OUTSIDE RECORDS SUMMARY | 2024-10-03 08:08 | XMS_ITS | Patient Health Record ---
Author [facility] Address [address] [place] [address] Care Team Providers Care Subassembly Supervisor Name Role Phone Catalino PLUMMER, Erin Primary Care Provider Familia Avery Unavailable [phone] Allergies Allergen (clinical drug ingredient) Drug/Non Drug [...] primary osteoarthritis of the ankle and/or foot (727983343) Primary osteoarthrit is, right ankle and foot (M19.071) Active confirmed Problem Localized, primary osteoarthritis of the ankle and/or foot (397366253) Primary osteoarthrit is, left ankle and foot (M19.072) Active confirmed Problem Acquired hammer toe of right foot (8581272947910935) Other hammer toe(s) (acquired), right foot (M20.41) Active confirmed Problem Acquired hammer toe of left foot (1026315218131617) Other hammer toe(s) (acquired), left foot (M20.42) Active confirmed Plan Of Treatment Pending Test Test Name Order Date X ray : Foot, left 2V 03/05/2017 X ray : Foot, right 3V 03/05/2017 [id number] NAIL, 6 OR MORE 03/05/2017 [id number] SKIN LESIONS, 2 TO 4 03/05/20 17 Insurance Providers Payer Name Payer Address Payer Phone Subscriber Number Group Number Insured Name Patient Relationship to Insured Coverage Start Date Coverage End Date [facility] Medicare Complete [address] [address] [place] [address] [id number] Jeorme Little Self - patient is the insured Medical (General) History Medical History History ICD Code Arthritis Back,Hip,and Knee pain Depression Diabetic Hypertension Surgical History Surgery Date(Month/Year) gall bladder 3 years ago section 1975 cataract surgery 2016
--- NOTE | 2024-10-03 08:14 | MHC.PC.OV ---
Vital Signs 10/03/24 08:15 Height 5 ft 4 in Weight 173 lb BMI 29.7 BP 150/80 H Blood Pressure Location Rt brachial Position Sitting Respiration 16 Pulse 102 H Pulse Source Pulse Oximeter Temp 97.7 F Temp Source Oral Pulse Oximetry (%) 98 Oxygen Delivery Method Room Air Intake Visit Reasons: discuss referral & c/o depression & anxiety Intake Note: Pt is here to discuss referral and c/o depression and anxiety . Casting Room Helper Required: No Accompanied by: Daughter Allergies latex Allergy (Mild, Verified 10/03/24 08:50) Cough Medication List - Last Reconciled 10/03/24 by Inga Alvarenga MD atorvastatin 10 mg PO DAILY blood sugar diagnostic (OneTouch Ultra Test strips) Check fasting glucose twice a day ac blood-glucose meter (OneTouch Ultra2 Meter) Check fasting blood sugar twice a day before meals blood-glucose meter (OneTouch Ultra2 Meter) Check fasting blood sugar twice a day before meals carvedilol 3.125 mg PO BID lancets Check fasting blood sugar twice a day ac metformin 1,000 mg PO BIDWMEAL nifedipine ER 90 mg PO DAILY Ozempic (semaglutide) 0.25 mg (0.368 mL) subcut QWEEK 1 month NS Tobacco use date assessed: 10/03/24 Fall risk assessment: No Falls in past year Last assessed Fall Risk: 10/03/24 Dental Screening Dental Screen Date: 10/03/24 Did you have a dental visit in the last 12 months?: No Did you have a dental problem in the last 6 months where you did not have access to dental care?: No Was dental information given to patient?: No HPI discuss referral & c/o depression & anxiety HPI Details - The patient is an 83-year-old female presenting with multiple chronic conditions including diabetes management, hypertension, and arthritis, as well as mental health concerns such as depression and anxiety. - Diabetes mellitus with peripheral neuropathy: The patient has a history of diabetes with peripheral neuropathy, which has been uncontrolled in the past but is now improving. Her blood sugar levels have decreased from 9.7 to 7.3, and her average blood sugar has dropped from 272 to 163. She is currently on metformin and Ozempic, which she sometimes forgets to take on the scheduled day. - Onychomycosis: The patient has a fungal infection in her toenails, which was previously treated with a topical medication that did not yield satisfactory results. - Achilles tendinitis: The patient reports pain in the right heel, which was diagnosed as Achilles tendinitis. She has a history of bone spurs and arthritis in the area, which exacerbates the condition. - Arthritis: The patient experiences chronic pain due to arthritis, which is influenced by weather changes and barometric pressure. She manages the pain with Tylenol Arthritis - Hypertension: The patient has a history of hypertension and is currently on nifedipine, which is being transitioned to losartan today to better protect her kidneys from diabetes-related damage. - Depression and Anxiety: The patient has a history of depression and anxiety, previously managed with escitalopram. She reports feeling better when on the medication and is being restarted on a 10 mg dose to e taken daily - Hyperlipidemia: The patient is on atorvastatin for hyperlipidemia, with recent fasting lipid levels are within normal limits - Chronic kidney disease: The patient's kidney function is stable with a GFR over 60, but she is not on any specific medication to protect her kidneys from diabetes. - Congestive heart failure: The patient was previously diagnosed with congestive heart failure and is on carvedilol, although she reports no cardiac symptoms at present [facility] Medical History (Updated 10/03/24 @ 09:33 by Inga Alvarenga MD) Decreased hearing of both ears Hypertrophic toenail Depression with anxiety Pain, joint, lower leg, right Intractable heel pain Tinea unguium Essential hypertension Diabetes mellitus with hyperglycemia, without long-term current use of insulin Memory loss Hyperlipidemia Surgical History S/P right knee surgery Hx of section S/P cholecystectomy Hx of total knee replacement Family History Father Hypertension Stroke Mental health disorder Mother Hypertension Sister Tuberculosis Social History Household Members Other:: lives with daughter Housing: House Patient Tobacco Use Status: Never used Tobacco e-Cigarette/Vaping Use: Never Used Current occupational status: retired Cognitive needs: No Hearing needs: No Vision needs: Yes Questionnaire PHQ-9 Over the last 2 weeks, how often have you been bothered by any of the following problems? 1. Little interest or pleasure in doing things: more than half the days 2. Feeling down, depressed, or hopeless: more than half the days 3. Trouble falling or staying asleep, or sleeping too much: more than half the days 4. Feeling tired or having little energy: nearly every day 5. Poor appetite or overeating: nearly every day 6. Feeling bad about yourself - or that you are a failure or have let yourself or your family down: several days 7. Trouble concentrating on things, such as reading the newspaper or watching television: several days 8. Moving or speaking so slowly that other people could have noticed. Or the opposite - being so fidgety or restless that you have been moving around a lot more than usual: several days 9. Thoughts that you would be better off or of hurting yourself in some way: not at all Total score: 15 Depression Screening Interpretation: Positive (Restarted back on escitalopram 10 mg daily) Depression Screening Follow-up: Existing condition and New Medication prescribed Depression Screening Done: Yes 24260 - PHQ-9 Billing: Yes Source: Developed by Drs. José Scott, Radha Cool, Carlos Blanco and colleagues, with an educational néstor from [employer]. Thrive Questionnaire Date Thrive assessed: 06/16/24 I am a: Patient What is your living situation today?: I have a place to live, but I am worried about losing it in the future Within the past 12 months, did the food you bought not last and you didn't have the money to get more?: Never true Within the past 12 months, did you worry whether your food would run out before you got money to buy more?: Never true Do you have trouble paying for medicines?: Yes Do you have trouble getting transportation to medical appointments?: Yes Do you have trouble paying your heating and electricity bill?: Yes Do you have trouble taking care of your child, family member or friend?: No Do you have trouble with day-to-day activities such as bathing, preparing meals, shopping, managing finances, etc.?: Yes Are you currently unemployed and looking for a job?: No Are you interested in more education?: No Please select the resources that you would like help with: Paying for medicine, Transportation, Utilities and Daily support Currently or been in a relationship where the following occur: No concerns reported THRIVE Score: 3 AUDIT C Alcohol Use Questionnaire (AUDIT-C) 1. How often do you have a drink containing alcohol?: Never Total Score: 0 JUSTUS-7 AMB Questionnaire JUSTUS-7 Date JUSTUS - 7 assessed: 10/03/24 Feeling nervous, anxious, or on edge: 2 = More than half the days Not being able to stop or control worryin = More than half the days Worrying too much about different things: 2 = More than half the days Trouble relaxin = More than half the days Being so restless that it is hard to sit still: 0 = Not at all Becoming easily annoyed or irritable: 1 = Several days Feeling afraid as if something awful might happen: 1 = Several days Total JUSTUS-7 score (0-4 normal; 5-9 mild; 10-14 moderate; 15-21 severe): 10 Source: Developed by Drs. José Scott, Radha Cool, Carlos Blanco and colleagues, with an educational néstor from [employer]. JUSTUS-7 Assessment Billing JUSTUS-7 Assessment Tool: JUSTUS-7 Assessment 73598 Review of Systems Eyes Details: Overdue for diabetes retinopathy screening Denies change in vision ENT Details: Decreased hearing both ears Denies ear discharge, Denies otalgia and Denies nasal congestion Card Denies chest pain, Denies rapid heart rate, Denies pedal edema, Denies irregular heart rhythm and Denies dyspnea Resp Denies cough and Denies dyspnea GI Reports no additional complaints Denies hematuria, Denies difficulty voiding and Denies dysuria Musc Details: Occasional stiffness in joints and feet , no swelling or bone deformity he reported Skin/Breast Denies breast pain and Denies breast mass Neuro Reports no additional complaints Psych Reports as per HPI Endo Denies polydipsia and Denies polyuria Faisal/Lymph Reports no additional complaints Aller/Immun Reports no additional complaints Physical exam (Primary Care) Vital Signs: Last Vital Signs Temp 97.7 F 10/03/24 08:15 Pulse 102 H 10/03/24 08:15 Resp 16 10/03/24 08:15 BP 150/80 H 10/03/24 08:15 Pulse Ox 98 10/03/24 08:15 Oxygen Delivery Method Room Air 10/03/24 08:15 BMI result Body Mass Index 29.7 Tobacco/Smoking Status: Tobacco use Status Tobacco use date assessed 10/03/24 10/03/24 08:23 Patient Tobacco Use Status Never used Tobacco 10/03/24 08:14 e-Cigarette/Vaping Use Never Used 10/03/24 08:14 PHQ-9: PHQ-9 Score PHQ-9: Total score 15 10/03/24 09:22 Depression Screening Interpretation: Positive (Restarted back on escitalopram 10 mg daily) Depression Screening Follow-up: Existing condition and New Medication prescribed Thrive Assessment: Date of Thrive Assessment Date Thrive assessed 06/16/24 10/03/24 08:14 Currently or been in a relationship where the following occur: No concerns reported Const General: no acute distress and alert Nutritional Appearance: average body habitus Orientation/consciousness: patient oriented x3 HENMT Ears: hearing grossly impaired Mouth: Normal oral and palatal mucosa present and moist mucous membranes Throat: Yes posterior oropharynx normal Eyes General: appearance normal, both eyes and all related structures Neck Neck: Yes no lymphadenopathy and Yes supple Resp Effort & Inspection: normal respiratory effort Auscultation: clear to auscultation bilaterally Cardio Rhythm: regular rhythm Heart sounds: S1 normal heart sound present and S2 normal heart sound present GI Palpation (GI): Soft to palpation Percussion: Yes normal to percussion Auscultation: normal bowel sounds General: Yes no CVA tenderness Back/Spine/Pelvis Back: no CVA tenderness Skin General skin exam: no rashes or lesions noted Neuro General: patient oriented x3, gait normal, tone normal, moves all extremities, Normal light touch and pain sensation and CN's II-XI intact bilaterally Cognition (Neuro): normal cognition Motor exam (neuro): 5/5 motor strength present throughout Extrem Other: Pain on ankle and Achilles tendon General: Yes full ROM, Yes no joint enlargement, Yes no pedal edema and Yes normal gait Results Reviewed Results Reviewed: Name: Ely Little Age/Sex: 83/F : 1940 Unit#: [id number] Attend Dr: Inga Alvarenga MD Re09/29/24 Status: DEP REF Location: [facility] Disch: SPEC : [id number] ELIAN: 09/29/24 STATUS: COMP REQ : [id number] RECD: 09/29/24-1253 [facility] [address]: Inga Alvarenga MD COMP: 09/29/241354 ENTERED: 09/29/24-[address] [facility] [address]: ORDERED: Met Prof Fast, AST, ALT, Lipid Panel, Vitamin D 25-OH, TSH Rflx Test Result Flag Reference Sodium 142 135-145 mmol/L Potassium 3.8 3.3-5.1 mmol/L CL 108 96-108 mmol/L CO2 27 22-29 mmol/L Gap 11 L 12-20 BUN 12 9-16 mg/dL Creat 0.87 0.5-1.4 mg/dL eGFR > 60 Chronic Kidney Disease: Estimated GFR < 60 mL/min/1.73m2 Severe Kidney Disease: Estimated GFR < 15 mL/min/1.73m2 FBS 120 H 60-99 mg/dL A fasting glucose from 100-125 mg/dl is considered impaired (pre-diabetes). CA 9.2 # 8.4-10.2 mg/dL AST (GOT) 20 5-31 U/L ALT (GPT) 7 0-31 U/L Triglyceride 46 <150 mg/dL Desirable Triglyceride: less than 150 mg/dL Borderline High Triglyceride 150-199 mg/dL High Triglyceride: 200-499 mg/dL Very High Triglyceride: greater than or equal to 5OO mg/dL Cholesterol 120 <200 mg/dL Desirable Cholesterol: less than 200 mg/dL Borderline High Cholesterol: 200-239 mg/dL High Cholesterol: greater than 239 mg/dL LDL Calculated 61 <100 mg/dL Desirable LDL: less than 100 mg/dL Near Optimal/Above Optimal LDL: 110-129 mg/dL Borderline High LDL: 130-159 mg/dL High LDL: 160-189 mg/dL Very High LDL: greater than or equal to 190 mg/dL HDL 50 >40 mg/dL Desirable HDL: greater than 40 mg/dL Note: This HDL assay may give artificially low results in patients with liver disease. Vitamin D 25-OH 42.5 >30 ng/mL Health Based Reference Values* < 20 ng/mL Deficient 20-30 ng/mL Insufficient > 30 ng/mL Sufficient *Lynette BORJAS. N Engl J Med. 2007;357:266-280 There is no well-established upper level of normal vitamin D levels. Some laboratories use 50 ng/mL as an upper limit of normal. However, toxicity is patient-dependent and may occur at any level. Careful correlation with the patient's presentation is necessary and, if there is concern for vitamin D toxicity, treatment should be considered irrespective of the serum level. Care must be taken in interpreting Vitamin D results from different laboratories and methodologies. Published data demonstrated that results from patients undergoing hemodialysis may show a negative bias when tested with various automated 25-OH vitamin D assays when compared to LC-MS/MS. When testing samples from patients whose predominant form of Vitamin D is Vitamin D2, such as patients receiving Vitamin D2 supplementation, results that are subtherapeutic should be confirmed with another method such as LC-MS/MS. TSH 1.12 0.32-4.0 uIU/mL Laboratory Tests 06/08/24 09/29/24 11:22 10:00 Hemoglobin A1c % 9.7 H 7.3 H Urine Creatinine 56.68 Urine Microalbumin 158.0 Microalb/Creat Ratio 278.7 H Coding Level of Care Code Est Pt Level 4 (94345) Diagnoses Depression with anxiety F41.8 Tinea unguium B35.1 Right foot pain M79.671 Diabetes mellitus with hyperglycemia, without long-term current use of insulin E11.65 Decreased hearing of both ears H91.93 Additional Codes JUSTUS-7 Assessment Billing - JUSTUS-7 Assessment Tool: JUSTUS-7 Assessment 40324 ([id number]) PHQ-9 - 79057 - PHQ-9 Billing: Yes ([id number]) Assessment & Plan Assessment & Plan (1) Depression with anxiety: Code(s): F41.8 - Other specified anxiety disorders Category: Medical (2) Tinea unguium: Code(s): B35.1 - Tinea unguium Category: Medical Plan: Referred to podiatry (3) Right foot pain: Code(s): M79.671 - Pain in right foot Plan: Referral to podiatry ordered (4) Diabetes mellitus with hyperglycemia, without long-term current use of insulin: Code(s): E11.65 - Type 2 diabetes mellitus with hyperglycemia Category: Medical (5) Decreased hearing of both ears: Code(s): H91.93 - Unspecified hearing loss, bilateral Category: Medical Plan: Referred to speech and hearing in [place] for evaluation of hearing loss Plan -The patient will continue with metformin and Ozempic for diabetes management, with a referral to a clinical informatics educator for dietary management and blood sugar monitoring. It is important for the patient to adhere to the medication schedule to maintain improved blood sugar levels. advised to have a bland diet when taking Ozempic, to avoid gastrointestinal discomfort. Regular physical activity, such as walking, is encouraged to improve joint mobility and overall health. Referred clinical informatics educator for guidance with regards diet and taking her medications. - For the management of onychomycosis, a referral to a different hogshead inspector is recommended to explore alternative treatment options. The patient is advised to maintain proper foot hygiene and monitor for any changes. - The patient will transition from nifedipine to losartan to better protect her kidneys from diabetes-related damage. This change aims to provide more effective management of her hypertension and reduce the risk of further kidney impairment. Return to clinic in 2 weeks to check blood pressure with nurse navigator. -For arthritis and Achilles tendinitis, the patient is advised to use Tylenol Arthritis for pain management - The patient will restart escitalopram for depression and anxiety management, with a follow-up in four weeks via telehealth to assess the effectiveness of the treatment. It is crucial for the patient to take the medication consistently and report any side effects. -referred to [facility] speech and hearing center for evaluation of hearing loss Patient was informed and verbally consented to the use of an ambient scribe for clinic note documentation during this visit. Orders: Referrals Podiatry Referral B35.1 - Tinea unguium, E11.65 - Type 2 diabetes mellitus with hyperglycemia, L60.2 - Onychogryphosis, M79.671 - Pain in right foot Speech and Hearing Referral H91.93 - Unspecified hearing loss, bilateral Medications: New escitalopram oxalate 10 mg PO DAILY 30 tabs 1RF NS F41.8 - Other specified anxiety disorders losartan 50 mg PO DAILY 30 tabs 1RF Discontinued nifedipine ER Discontinued Reason: Doctor's Order 90 mg PO DAILY 90 tabs 1RF
[2024-10-03 08:15] VITALS: BP 150/80; PULSE 102; RESP 16; TEMP 36.5; O2SAT 98; BMI 29.7
== END 2024-10-03 10:52 | disposition home or self-care (01) ==
LOC: HO.HMCC 08:05
PROVIDERS: PCP Internal Medicine; Visit Provider Internal Medicine
DX: F41.8 Other specified anxiety disorders (principal); B35.1 Tinea unguium; M79.671 Pain in right foot; E11.65 Type 2 diabetes mellitus with hyperglycemia; H91.93 Unspecified hearing loss, bilateral

== ENCOUNTER → 2024-10-03 08:04 | Outpatient (BNVA) | payer MEDICARE, SELFPAY | PROVIDERS: PCP Internal Medicine; Visit Provider Internal Medicine | DX: F41.8 Other specified anxiety disorders (principal); B35.1 Tinea unguium; M79.671 Pain in right foot; E11.65 Type 2 diabetes mellitus with hyperglycemia; H91.93 Unspecified hearing loss, bilateral | CPT/HCPCS: 96127; 99212 ==

== ENCOUNTER 2024-11-15 09:04 | Outpatient (AMB) | payer MEDICARE, SELFPAY ==
[2024-11-15 09:08] VITALS: BP 164/90; PULSE 101; O2SAT 95; BMI 29.3
--- NOTE | 2024-11-15 09:08 | HO.NEPHOV_ITS ---
Vital Signs 11/15/24 09:08 Height 5 ft 4 in Weight 171 lb BMI 29.3 BP 164/90 H Blood Pressure Location Rt brachial Position Sitting Pulse 101 H Pulse Source Pulse Oximeter Pulse Oximetry (%) 95 Oxygen Delivery Method Room Air Intake Visit Reasons: INP: Essential (primary) hypertension-Conf Fire Prevention Inspector Required: No Accompanied by: Self / Same As Patient Allergies latex Allergy (Mild, Verified 11/15/24 09:10) Cough HPI Comments Details: 83-year-old lady with past medical history of hypertension, diabetes, arthritis, depression and anxiety he is here to establish care for the management of proteinuria. Hypertension: Started in her 30s possibly related , recently changed from nifedipine to losartan 50 mg daily, carvedilol 3.125 mg b.i.d. Forgot to take her meds this morning Diabetes mellitus: doesnt remember when it started but has it for a while, on m etformin, Ozempic overall not feeling good, feeling weak lost about 40lbs over the past year, was weighing 213lbs before, unintentional; now on ozempic [facility] Medical History (Updated 11/15/24 @ 09:14 by Raj Moss MD) Chronic kidney disease Diabetes mellitus with microalbuminuria, without long-term current use of ins ulin Decreased hearing of both ears Hypertrophic toenail Depression with anxiety Pain, joint, lower leg, right Intractable heel pain Tinea unguium Essential hypertension Diabetes mellitus with hyperglycemia, without long-term current use of insulin Memory loss Hyperlipidemia Surgical History S/P right knee surgery Hx of section S/P cholecystectomy Hx of total knee replacement Family History Father Hypertension Stroke Mental health disorder Mother Hypertension Sister Tuberculosis Social History Household Members Other:: lives with daughter Housing: House Patient Tobacco Use Status: Never used Tobacco e-Cigarette/Vaping Use: Never Used Current occupational status: retired Cognitive needs: No Hearing needs: No Vision needs: Yes Review of Systems Const Details: Const : +body aches, no excessive sweating and + fatigue Eyes: no blurry vision and no change in vision ENT: no bleeding gums and no change in voice, no dizziness Card: no chest pain, no shortness of breath, no orthopnea, no PND Resp: no cough, no excessive phlegm production, no SOB GI: no abdominal pain and no nausea, no vomiting : no hematuria, no urinary frequency and no difficulty voiding Musc: no abnormal gait, no bone pain Neuro: no abnormal movements, no weakness, no dizziness, no abnormal gait and no behavioral changes Psych: no behavioral changes and no change in appetite Endo: + change in body appearance, no cold intolerance Physical Exam Vital Signs: BMI result Body Mass Index 29.3 General: not in any acute distress, comfortable, sitting on the chair Nutritional Appearance: well nourished and weight Eyes: normal position, no icterus Neck: No lymphadenopathy, no thyromegaly Resp: bilateral air entry equal, no added sounds present Cardio: normal S1, S2 heard, no murmur heard, no edema GI: soft, nontender, no guarding, no hepatosplenomegaly : bladder normal to inspection, bladder normal to palpation, no renal angle tenderness Skin: no rashes or lesions noted and elasticity normal Neuro: oriented to person, oriented to place, oriented to time and moves all extremities Results Reviewed Nephrology Results: Hgb, (12.0-16.0) 11.5 g/dl L 06/08/24 WBC, (4.8-10.8) 8.5 X10*3/uL 06/08/24 Plt Count, (160-400) 269 X10*3/uL 06/08/24 Sodium, (135-145) 142 mmol/L 09/29/24 Potassium, (3.3-5.1) 3.8 mmol/L 09/29/24 Chloride, (96-108) 108 mmol/L 09/29/24 Carbon Dioxide, (22-29) 27 mmol/L 09/29/24 BUN, (9-16) 12 mg/dL 09/29/24 Creatinine, (0.5-1.4) 0.87 mg/dL 09/29/24 Calcium, (8.4-10.2) 9.2 mg/dL Δ 09/29/24 Urine Creatinine 56.68 mg/dL 06/08/24 Assessment & Plan Assessment & Plan (1) Chronic kidney disease: Code(s): N18.9 - Chronic kidney disease, unspecified Category: Medical (2) Essential hypertension: Code(s): I10 - Essential (primary) hypertension Category: Medical (3) Diabetes mellitus with hyperglycemia, without long-term current use of insulin: Code(s): E11.65 - Type 2 diabetes mellitus with hyperglycemia Category: Medical Plan Chronic kidney disease stage II A2: - possibly secondary to diabetic kidney disease but would like to rule out other etiologies - no family history of CKD, no history of renal stones in the past, NSAID use. Father had stroke. - creatinine 0.8 , GFR >60 - urine microalbumin creatinine ratio: 278.7 in May 2024, will get UPCR: - will get Urinalysis - no renal imaging - avoid nephrotoxic medications not limited to NSAIDs, contrast etc. - importance of diet, weight loss, adequate blood pressure control well explained to patient - will get hepatitis panel, HIV, MARIE, ANCA, complements, SPEP, UPEP, serum free light chains, PLA2R - recently started on losartan a month ago, will help reducing albuminuria; will continue to closely monitor. Hypertension: - target blood pressures less than 130/90 mm Hg - compliance: not good, forgot to take meds this morning - continue losartan 50 mg, carvedilol 3.125 b.i.d. This note is constructed using voice recognition software. While every effort has been made to ensure accuracy mold filler plastic dolls errors may have been included. Total time spent in the clinic is about 40 minutes, 10 minutes on chart review, review of data, 20 minutes on encounter, physical examination, counseling, answering all the questions, 10 minutes on documentation. Orders: Orders Hepatitis B,C Profile Today N18.9 - Chronic kidney disease, unspecified MARIE Reflex Titer and Pattern Today N18.9 - Chronic kidney disease, unspecified ANCA Vasculitides Today N18.9 - Chronic kidney disease, unspecified Complement C3 Today N18.9 - Chronic kidney disease, unspecified Complement C4 Today N18.9 - Chronic kidney disease, unspecified Protein Electrophoresis, Serum Today N18.9 - Chronic kidney disease, unspecified [place]/Lambda Light Chain Serum Today N18.9 - Chronic kidney disease, unspecified UA and rflx microscopic Today N18.9 - Chronic kidney disease, unspecified Microalbumin, Random (w Creat) Today N18.9 - Chronic kidney disease, unspecified Total Protein Urine Random Today N18.9 - Chronic kidney disease, unspecified Microalbumin, Random (w Creat) 3 Months E11. - Type 2 diabetes mellitus with hyperglycemia, I10 - Essential (primary) hypertension, N18.9 - Chronic kidney disease, unspecified Total Protein Urine Random 3 Months . - Type 2 diabetes mellitus with hyperglycemia, I10 - Essential (primary) hypertension, N18.9 - Chronic kidney disease, unspecified HIV Ab/Ag Today N18.9 - Chronic kidney disease, unspecified Protein Electrophoresis,Ran Ur Today N18.9 - Chronic kidney disease, unspecified Phospholipase A2 Receptor Pnl Today N18.9 - Chronic kidney disease, unspecified Basic Metabolic Panel Today N18.9 - Chronic kidney disease, unspecified Creatinine Urine Today N18.9 - Chronic kidney disease, unspecified Hemoglobin A1c Today - Type 2 diabetes mellitus with hyperglycemia, I10 - Essential (primary) hypertension, N18.9 - Chronic kidney disease, unspecified TSH reflex Free T4 Today . - Type 2 diabetes mellitus with hyperglycemia UA and rflx microscopic 3 Months . - Type 2 diabetes mellitus with hyperglycemia, I10 - Essential (primary) hypertension, N18.9 - Chronic kidney disease, unspecified Creatinine Urine 3 Months . - Type 2 diabetes mellitus with hyperglycemia, I10 - Essential (primary) hypertension, N18.9 - Chronic kidney disease, unspecified Basic Metabolic Panel 3 Months . - Type 2 diabetes mellitus with hyperglycemia, I10 - Essential (primary) hypertension, N18.9 - Chronic kidney disease, unspecified Coding Level of Care Code New Pt Level 4 (28693) Diagnoses Chronic kidney disease N18.9 Essential hypertension I10 Diabetes mellitus with hyperglycemia, without long-term current use of insulin
--- OUTSIDE RECORDS SUMMARY | 2024-11-15 09:45 | XMS_ITS | Patient Health Record ---
Author Organization [facility] Address [address] [place] [address] Care Team Providers Care Decorator Store Name Role Phone Catalino PLUMMER, Erin Primary Care Provider Familia Avery Unavailable [phone] Allergies Allergen (clinical drug ingredient) Drug/Non Drug [...] primary osteoarthritis of the ankle and/or foot (988395592) Primary osteoarthrit is, right ankle and foot (M19.071) Active confirmed Problem Localized, primary osteoarthritis of the ankle and/or foot (339493259) Primary osteoarthrit is, left ankle and foot (M19.072) Active confirmed Problem Acquired hammer toe of right foot (4447417773376406) Other hammer toe(s) (acquired), right foot (M20.41) Active confirmed Problem Acquired hammer toe of left foot (0068501765058816) Other hammer toe(s) (acquired), left foot (M20.42) Active confirmed Plan Of Treatment Pending Test Test Name Order Date X ray : Foot, left 2V 03/05/2017 X ray : Foot, right 3V 03/05/2017 [id number] NAIL, 6 OR MORE 03/05/2017 [id number] SKIN LESIONS, 2 TO 4 03/05/20 17 Insurance Providers Payer Name Payer Address Payer Phone Subscriber Number Group Number Insured Name Patient Relationship to Insured Coverage Start Date Coverage End Date [facility] Medicare Complete [address] [address] [place] [address] [id number] Jerome Little Self - patient is the insured Medical (General) History Medical History History ICD Code Arthritis Back,Hip,and Knee pain Depression Diabetic Hypertension Surgical History Surgery Date(Month/Year) gall bladder 3 years ago section 1975 cataract surgery 2016
--- OUTSIDE RECORDS SUMMARY | 2024-11-15 09:45 | XMS_ITS | Clinical Summary ---
Author Organization [facility] Address [address] [place] [id number] Phone Care Team Providers Care Lab Systems Analyst Name Role Phone Pcp, Unknown Primary Care [...] the skin every 7 days. 06/20/2024 Active Social History Tobacco Use Types Packs/Day Years [...] EDT) SODIUM 138 133 - 146 mmol/L [facility] CHLORIDE 103 96 - 108 mmol/L [facility] POTASSIUM 4.3 3.3 - 5.1 mmol/L [facility] CO2 27 21 - 35 mmol/L [facility] BUN 17 6 - 19 mg/dL [facility] CREATININE 0.90 0.5 - 1.5 mg/dL [facility] GLUCOSE 155(H) 70 - 99 mg/dL [facility] CALCIUM 9.5 8.4 - 10.3 mg/dL [facility] EGFR 64 >59 mL/min/1.7 3m2 [facility] Comment:Estimated glomerular filtration rate calculated using the CKD-EPI refit equation. ANION GAP 12 10 - 20 mmol/L [facility] Blood 06/26/2024 6:54 PM EDT 06/26/2024 6:57 PM EDT us Augustine Choi PA-C LAB BLOOD ORDERABLES Final R esult [address] [address] from Last 3 Months or Most Recently Relevant to Health Maintenance [place] [address] [place] [address] [place] [address] Care Teams Lab Systems Analyst Relationship Specialty Start Date End Date Pcp, Unknown PCP - General 08/07/23 Additional Source Comments The information contained in this document represents components of the legal health record. It is not the complete legal health record.[facility]
== END 2024-11-15 09:48 | disposition home or self-care (01) ==
LOC: HO.HKAS 09:05
PROVIDERS: PCP Internal Medicine; Visit Provider Internal Medicine Critical Care Medicine
DX: I12.9 Hypertensive chronic kidney disease with stage 1 through stage 4 chronic kidney disease, or unspecified chronic kidney disease (principal); N18.9 Chronic kidney disease, unspecified; E11.65 Type 2 diabetes mellitus with hyperglycemia
CPT/HCPCS: 99204

== ENCOUNTER 2024-11-15 09:04 | Outpatient (REF) | payer MEDICARE, SELFPAY ==
[2024-11-15 13:06] LABS: Appearance Urine Clear; Glucose Urine UA Negative (Negative); PH 5.5 (5.0-9.0); Specific Gravity - Urine 1.020 (1.005-1.025); UMIC TRIGGER UA YES
[2024-11-15 13:13] LABS: Hemoglobin A1C 156.2834 umol/L; Total Hemoglobin (HGBA1C) 3124.1067 umol/L
[2024-11-15 13:42] LABS: Microalbum/Creatinine Ratio Ur 40.2 ug/mg cr (<30); Total Protein Urine Random 14 mg/dL (<12)
[2024-11-15 13:44] LABS: HBS Num1 0.15 mIU/mL (0-7.99); HBc Num1 0.17 S/CO (0.00-0.79); HBsAGNum1 0.41 S/CO (0.00-0.99); HIV Num 1 0.06 S/CO (0.00-0.99); Hepatitis B Surface Antigen Negative (Negative); ~HepC Num1 0.18 S/CO (0.00-0.79); ~Hepatitis B Surface Antibody NONREACTIVE (Nonreactive); ~Hepatitis C Antibody Nonreactive (Nonreactive)
[2024-11-15 13:47] LABS: Anion Gap 13 (12-20); Blood Urea Nitrogen 15 mg/dL (9-16); Calcium 9.5 mg/dL (8.4-10.2); Carbon Dioxide 28 mmol/L (22-29); Chloride 103 mmol/L (96-108); Estimated Glomerular Filt Rate > 60; Potassium 4.1 mmol/L (3.3-5.1); Sodium 140 mmol/L (135-145)
[2024-11-16 16:34] LABS: Proteinase 3 PR3 Antibodies <1.0 AI
[2024-11-17 22:14] LABS: Prot Elec - Albumin 3.9 g/dL (3.8-4.8); Prot Elec - Alpha1 0.3 g/dL (0.2-0.3); Prot Elec - Alpha2 0.8 g/dL (0.5-0.9); Prot Elec - Beta 1 0.4 g/dL (0.4-0.6); Prot Elec - Beta 2 0.5 g/dL (0.2-0.5); Prot Elec - Gamma 1.6 g/dL (0.8-1.7); Prot Elec - Total Protein 7.4 g/dL (6.1-8.1)
[2024-11-20 16:18] LABS: Kappa, Serum 439 mg/dL (176-443); Kappa/Lambda Ratio, Serum 2.14 (1.29-2.55); Lambda, Serum 205 mg/dL (91-240)
[2024-11-21 13:42] LABS: PEU-Protein Creat Ratio Rand 0.178 (0.024-0.184); PEU-Rand. Prot/Creat Ratio 178 mg/g creat (24-184); PEU-Random Ur. Gamma Globulin 0 %; PEU-Random Urine A1 Globulin 0 %; PEU-Random Urine A2 Globulin 0 %; PEU-Random Urine Albumin 100 %; PEU-Random Urine Beta Globulin 0 %; PEU-Random Urine Creatinine 107 mg/dL (20-275); PEU-Random Urine Protein 19 mg/dL (5-24)
[2024-11-21 15:08] LABS: Anti Nuclear Antibody Pattern Nuclear, Speckled; Anti Nuclear Antibody Screen POSITIVE (NEGATIVE); Anti Nuclear Antibody Titer 1:320 titer; Phospholipase A2 IgG ELISA <4 RU/mL; Phospholipase A2 IgG IFA NEGATIVE (NEGATIVE)
== END 2024-11-15 09:05 | disposition home or self-care (01) ==
LOC: HO.HKASLDS 09:04
PROVIDERS: PCP Internal Medicine; Visit Provider Internal Medicine Critical Care Medicine
DX: I12.9 Hypertensive chronic kidney disease with stage 1 through stage 4 chronic kidney disease, or unspecified chronic kidney disease (principal); N18.9 Chronic kidney disease, unspecified; E11.22 Type 2 diabetes mellitus with diabetic chronic kidney disease; E11.65 Type 2 diabetes mellitus with hyperglycemia; Z01.84 Encounter for antibody response examination
CPT/HCPCS: 80048; 81001; 81003; 82043; 82570; 83036; 83520; 83883; 84156; 84165; 84166; 84443; 86021; 86038; 86039; 86160; 86255; 86704; 86706; 86803; 87340; 87389; 99202

== ENCOUNTER 2024-11-16 12:44 | Outpatient (REF) | payer MEDICARE, SELFPAY ==
--- OUTSIDE RECORDS SUMMARY | 2024-11-16 13:57 | XMS_ITS | Patient Health Record ---
Author [facility] Address [address] [place] [address] Care Team Providers Care Credit Charge Authorizer Name Role Phone Catalino PLUMMER, Erin Primary Care Provider Familia Avery Unavailable [phone] Allergies Allergen (clinical drug ingredient) Drug/Non Drug [...] primary osteoarthritis of the ankle and/or foot ([id number]) Primary osteoarthrit is, right ankle and foot (M19.071) Active confirmed Problem Localized, primary osteoarthritis of the ankle and/or foot (941182750) Primary osteoarthrit is, left ankle and foot (M19.072) Active confirmed Problem Acquired hammer toe of right foot (6305614666907562) Other hammer toe(s) (acquired), right foot (M20.41) Active confirmed Problem Acquired hammer toe of left foot (3652174699196548) Other hammer toe(s) (acquired), left foot (M20.42) Active confirmed Plan Of Treatment Pending Test Test Name Order Date X ray : Foot, left 2V 03/05/2017 X ray : Foot, right 3V 03/05/2017 [id number] NAIL, 6 OR MORE 03/05/2017 [id number] SKIN LESIONS, 2 TO 4 03/05/20 17 Insurance Providers Payer Name Payer Address Payer Phone Subscriber Number Group Number Insured Name Patient Relationship to Insured Coverage Start Date Coverage End Date [facility] Medicare Complete [address] [address] [place] [address] [id number] Jerome Little Self - patient is the insured Medical (General) History Medical History History ICD Code Arthritis Back,Hip,and Knee pain Depression Diabetic Hypertension Surgical History Surgery Date(Month/Year) gall bladder 3 years ago section 1975 cataract surgery 2016
--- OUTSIDE RECORDS SUMMARY | 2024-11-16 13:57 | XMS_ITS | Clinical Summary ---
Author Organization [facility] Address [address] [place] [address] Phone Care Team Providers Care Mosaicist Name Role Phone Pcp, Unknown Primary Care [...] EDT) SODIUM 138 133 - 146 mmol/L [facility] CHLORIDE 103 96 - 108 mmol/L [facility] POTASSIUM 4.3 3.3 - 5.1 mmol/L [facility] CO2 27 21 - 35 mmol/L [facility] BUN 17 6 - 19 mg/dL [facility] CREATININE 0.90 0.5 - 1.5 mg/dL [facility] GLUCOSE 155(H) 70 - 99 mg/dL [facility] CALCIUM 9.5 8.4 - 10.3 mg/dL [facility] EGFR 64 >59 mL/min/1.7 3m2 [facility] Comment:Estimated glomerular filtration rate calculated using the CKD-EPI refit equation. ANION GAP 12 10 - 20 mmol/L [facility] Blood 06/26/2024 6:54 PM EDT 06/26/2024 6:57 PM EDT us Augustine Choi PA-C LAB BLOOD ORDERABLES Final R esult [address] [address] from Last 3 Months or Most Recently Relevant to Health Maintenance [place] [address] [place] [address] MEDICARE REPLACEMENT Care Teams Mosaicist Relationship Specialty Start Date End Date Pcp, Unknown PCP - General 08/07/23 Additional Source Comments The information contained in this document represents components of the legal health record. It is not the complete legal health record.[facility]
== END 2024-11-16 12:45 | disposition home or self-care (01) ==
LOC: HO.SH 12:44
PROVIDERS: Visit Provider Internal Medicine
DX: Z01.118 Encounter for examination of ears and hearing with other abnormal findings (principal); H90.3 Sensorineural hearing loss, bilateral
CPT/HCPCS: 92557; 92567

== ENCOUNTER 2024-11-24 10:49 | Outpatient (AMB) | payer MEDICARE, SELFPAY ==
--- NOTE | 2024-11-24 10:57 | A.OFFVIS_ITS ---
Vital Signs 11/24/24 11:03 Height 5 ft 4 in Weight 170 lb 13.732 oz BMI 29.3 BP 152/92 H Blood Pressure Location Rt brachial Position Sitting Pulse 86 Pulse Source Pulse Oximeter Pulse Oximetry (%) 97 Oxygen Delivery Method Room Air Intake Visit Reasons: Type 2 diabetes mellitus with hyperglycemia Intake Note: New patient internally referred by PCP for T2DM management. Last Diabetic Eye exam: Due, requesting a referral Last Podiatry Visit: Has been in contact with Dr. Baig office, unsure of the appointment. Random Glucose: 109 mg/dl Hgb A1C: 6.7% 11/15/2024 Forging Roll Operator Required: No Accompanied by: Daughter Allergies latex Allergy (Mild, Verified 11/24/24 11:06) Cough Medication List - Last Reconciled 11/24/24 by NICOLASA Huang atorvastatin 10 mg PO DAILY blood sugar diagnostic (OneTouch Ultra Test strips) Check fasting glucose twice a day ac blood-glucose meter (OneTouch Ultra2 Meter) Check fasting blood sugar twice a day before meals blood-glucose meter (OneTouch Ultra2 Meter) Check fasting blood sugar twice a day before meals blood-glucose sensor (FreeStyle Americo 3 Plus Sensor device) Apply 1 new sensor every 15 days as directed to monitor blood glucose continuously. blood-glucose,knife finisher,cont (FreeStyle Americo 3 [place]) Use daily to monitor blood glucose levels continuously. carvedilol 3.125 mg PO BID dextrose (TRUEplus Glucose) 15 grams (32 mL) PO Q15M PRN lancets Check fasting blood sugar twice a day ac losartan 50 mg PO DAILY metformin 1,000 mg PO BIDWMEAL Ozempic (semaglutide) 0.25 mg (0.368 mL) subcut QWEEK 1 month NS HPI Comments Details: This is a an 84-year-old female with a past medical history of type 2 diabetes, chronic kidney disease, depression with anxiety, hypertension and hyperlipidemia presenting for an initial consult for diabetic management. She is accompanied by her daughter, Candelaria. Patient was reportedly diagnosed in her 30s. Her mother and father had type 2 diabetes. Hemoglobin A1c 6.7% 11/15/2024. She forgot her glucometer today. She forgets to check her blood sugars sometimes. She has not been checking them recently. She is interested in a CGM. Current medication regimen: Metformin 1000 mg twice daily, Ozempic 0.25 mg weekly Denies past medications. Compliance issues: None. Diet: Breakfast-eats sometimes, mostly eggs and drinking lemon water. Sometimes she has juice. Lunch-doesn't eat lunch, sometimes eats junk foods like chips and cookies and popcorn Dinner-sometimes its a piece of pizza, might cook or have take out Cutting back on juice and soda Hypoglycemia symptoms: None Hyperglycemia symptoms: none Eye exam: Requests referral Complications: Nephropathy (microalbuminuria) Hypertension: treated with carvedilol and losartan, but she did not take her medications today. Hyperlipidemia: treated with atorvastatin LDL at goal <100. ROS: Constitutional: No unexplained weight loss, fever, chills, fatigue or night sweats. Neurologic: No numbness or tingling in the extremities Endocrine: No cold or heat intolerance. No polyuria or polydipsia. Physical exam: Constitutional: Alert, in no distress. Neck: Supple, Full range of motion. No lymphadenopathy. No palpable thyroid masses. Respiratory: Clear to auscultation. Cardiovascular: S1 S2 regular. No murmurs Extremities: Warm and well perfused. No clubbing, cyanosis or edema. No open wounds. Intact peripheral pulses bilaterally. [facility] Medical History (Updated 11/24/24 @ 13:00 by NICOLASA Huang) Controlled type 2 diabetes mellitus Chronic kidney disease Diabetes mellitus with microalbuminuria, 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 Hypertrophic toenail Depression with anxiety Pain, joint, lower leg, right Intractable heel pain Tinea unguium Essential hypertension Diabetes mellitus with hyperglycemia, without long-term current use of insulin Memory loss Hyperlipidemia Surgical History S/P right knee surgery Hx of section S/P cholecystectomy Hx of total knee replacement Family History Father Hypertension Stroke Mental health disorder Mother Hypertension Sister Tuberculosis Social History Household Members Other:: lives with daughter Housing: House Patient Tobacco Use Status: Never used Tobacco e-Cigarette/Vaping Use: Never Used Current occupational status: retired Cognitive needs: No Hearing needs: No Vision needs: Yes Physical Exam Vital Signs: Last Vital Signs Pulse 86 11/24/24 11:03 BP 152/92 H 11/24/24 11:03 Pulse Ox 97 11/24/24 11:03 Oxygen Delivery Method Room Air 11/24/24 11:03 BMI result Body Mass Index 29.3 Results Reviewed Results Reviewed: Laboratory Last Values Glucose (Clinic) 109 mg/dL (60-115) 11/24/24 11:14 Laboratory Tests 09/29/24 11/15/24 10:00 10:00 Creatinine 0.88 Estimated GFR > 60 Hemoglobin A1c % 6.7 H AST 20 ALT 7 Triglycerides 46 Cholesterol 120 LDL Cholesterol, Calc 61 HDL Cholesterol 50 TSH 1.37 Urine Microalbumin 43.0 Microalb/Creat Ratio 40.2 H Assessment & Plan Assessment & Plan (1) Controlled type 2 diabetes mellitus: Code(s): E11.9 - Type 2 diabetes mellitus without complications Category: Medical Plan: In summary this is an 84-year-old female with controlled type 2 diabetes on metformin and Ozempic. Discussed pathophysiology of Type II Diabetes Mellitus with the patient in detail.? I explained the penitentiary risks and complications associated with uncontrolled diabetes including nephropathy, neuropathy, peripheral vascular disease, retinopathy, increased risk of heart disease and stroke.? I reviewed the diabetic diet and gave the patient handouts on a healthy plate and portions. Reviewed treatment of hypo and hyperglycemia. Written handouts given. Prescribed trueplus glucose. The patient is referred for an eye exam. The patient is prescribed a CGM and referred to the paint mixer hand. Continue Ozempic 0.25 mg weekly and metformin 1000 mg twice daily. I would have a low threshold for reducing her dose of metformin if her A1c decreases or she reports any low blood sugars. (2) Chronic kidney disease: Code(s): N18.9 - Chronic kidney disease, unspecified Category: Medical Plan: Followed by Nephrology. Reviewed the importance of taking losartan to treat hypertension. Avoid nephrotoxic medications. (3) Essential hypertension: Code(s): I10 - Essential (primary) hypertension Category: Medical Plan: Stressed the importance of taking medications regularly. (4) Hyperlipidemia: Code(s): E78.5 - Hyperlipidemia, unspecified Category: Medical Qualifiers: Hyperlipidemia type: pure hypercholesterolemia Qualified Code(s): E78.00 - Pure hypercholesterolemia, unspecified Plan: Controlled. Continue atorvastatin. Plan Follow up in 3 months. Orders: Referrals American History Teacher Nutrition Referral E11.65 - Type 2 diabetes mellitus with hyperglycemia Diabetes Education Referral E11.65 - Type 2 diabetes mellitus with hyperglycemia Ophthalmology Referral E11.65 - Type 2 diabetes mellitus with hyperglycemia Medications: New dextrose (TRUEplus Glucose) until symptoms of low blood sugar are controlled 15 grams (32 mL) PO Q15M PRN 128 mL 3RF hypoglycemia blood-glucose,knife finisher,cont (FreeStyle Americo 3 [place]) Use daily to monitor blood glucose levels continuously. 1 ea 0RF blood-glucose sensor (FreeStyle Americo 3 Plus Sensor device) Apply 1 new sensor every 15 days as directed to monitor blood glucose continuously. 2 ea 11RF Patient Instructions: If you experience low blood sugar, treat this by eating a chewable fruit candy like skittles or jelly beans (about 8 pieces), 4 ounces (1/2 cup) of fruit juice (not diet), 1 tablespoon of honey or 4 glucose tablets or 1 pack of Trueplus glucose gel (dextrose gel). If your blood sugar is under 50, take double the amount of one of the above. Recheck your blood sugar in 15 minutes. Continue Metformin 1000 mg twice daily Continue Ozempic 0.25 mg weekly [email or web address] Please call when you brain picker the Americo 3 plus reader and sensors. Coding Level of Care Code New Pt Level 5 (50330) Complex EM visit Add On G2211 Diagnoses Controlled type 2 diabetes mellitus E11.9 Chronic kidney disease N18.9 Essential hypertension I10 Pure hypercholesterolemia E78.00 Hyperlipidemia type: pure hypercholesterolemia Time Spent (min) 61 Comment Completing documentation, chart review, direct patient care
[2024-11-24 11:03] VITALS: BP 152/92; PULSE 86; O2SAT 97; BMI 29.3
[2024-11-24 11:18] LABS: Glucose, Whole Blood 109 mg/dL (60-115)
--- OUTSIDE RECORDS SUMMARY | 2024-11-24 12:24 | XMS_ITS | Patient Health Record ---
Author Organization [facility] Address [address] [place] [address] Care Team Providers Care Metal Furniture Assembly Supervisor Name Role Phone Catalino PLUMMER, Erin Primary Care Provider Familia Avery Unavailable [phone] Allergies Allergen (clinical drug ingredient) Drug/Non Drug [...] primary osteoarthritis of the ankle and/or foot (589626802) Primary osteoarthrit is, right ankle and foot (M19.071) Active confirmed Problem Localized, primary osteoarthritis of the ankle and/or foot (711689877) Primary osteoarthrit is, left ankle and foot (M19.072) Active confirmed Problem Acquired hammer toe of right foot ([id number]) Other hammer toe(s) (acquired), right foot (M20.41) Active confirmed Problem Acquired hammer toe of left foot ([id number]) Other hammer toe(s) (acquired), left foot (M20.42) Active confirmed Plan Of Treatment Pending Test Test Name Order Date X ray : Foot, left 2V 03/05/2017 X ray : Foot, right 3V 03/05/2017 [id number] NAIL, 6 OR MORE 03/05/2017 [id number] SKIN LESIONS, 2 TO 4 03/05/20 17 Insurance Providers Payer Name Payer Address Payer Phone Subscriber Number Group Number Insured Name Patient Relationship to Insured Coverage Start Date Coverage End Date [facility] Medicare Complete [address] [address] [place] [address] [id number] Jerome Little Self - patient is the insured Medical (General) History Medical History History ICD Code Arthritis Back,Hip,and Knee pain Depression Diabetic Hypertension Surgical History Surgery Date(Month/Year) gall bladder 3 years ago section 1975 cataract surgery 2016
== END 2024-11-24 11:57 | disposition home or self-care (01) ==
LOC: HO.ENCR 10:50
PROVIDERS: PCP Internal Medicine; Visit Provider Physician Assistant Medical
DX: E11.9 Type 2 diabetes mellitus without complications (principal); I12.9 Hypertensive chronic kidney disease with stage 1 through stage 4 chronic kidney disease, or unspecified chronic kidney disease; N18.9 Chronic kidney disease, unspecified; E78.00 Pure hypercholesterolemia, unspecified

== ENCOUNTER → 2024-11-24 10:49 | Outpatient (BNVA) | payer MEDICARE, SELFPAY | PROVIDERS: PCP Internal Medicine; Visit Provider Physician Assistant Medical | DX: E11.29 Type 2 diabetes mellitus with other diabetic kidney complication (principal); I12.9 Hypertensive chronic kidney disease with stage 1 through stage 4 chronic kidney disease, or unspecified chronic kidney disease; N18.9 Chronic kidney disease, unspecified; E78.00 Pure hypercholesterolemia, unspecified; Z79.84 Long term (current) use of oral hypoglycemic drugs | CPT/HCPCS: 82947; 99202 ==

== ENCOUNTER 2024-11-27 10:43 | Outpatient (AMB) | payer MEDICARE, SELFPAY ==
[2024-11-27 10:56] VITALS: BP 148/60; PULSE 77; TEMP 36.9; O2SAT 98; BMI 28.8
--- NOTE | 2024-11-27 10:56 | MHC.PC.OV ---
Vital Signs 11/27/24 10:56 Height 5 ft 4 in Weight 168 lb BMI 28.8 BP 148/60 H Blood Pressure Location Rt brachial Position Sitting Pulse 77 Pulse Source Pulse Oximeter Temp 98.4 F Temp Source Oral Pulse Oximetry (%) 98 Oxygen Delivery Method Room Air Intake Visit Reasons: FMA paperwork for daughter Intake Note: Pt is here today for her lab results f/u and to discuss FMLA for daughter Accompanied by: Daughter Allergies latex Allergy (Mild, Verified 12/03/24 20:18) Cough Medication List - Last Reconciled 12/03/24 by Inga Alvarenga MD atorvastatin 10 mg PO DAILY blood sugar diagnostic (OneTouch Ultra Test strips) Check fasting glucose twice a day ac blood-glucose meter (OneTouch Ultra2 Meter) Check fasting blood sugar twice a day before meals blood-glucose meter (OneTouch Ultra2 Meter) Check fasting blood sugar twice a day before meals blood-glucose sensor (FreeStyle Astrid 3 Plus Sensor device) Apply 1 new sensor every 15 days as directed to monitor blood glucose continuously. 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 carvedilol 3.125 mg PO BID dextrose (TRUEplus Glucose) 15 grams (32 mL) PO Q15M PRN lancets Check fasting blood sugar twice a day ac losartan 50 mg PO DAILY metformin 1,000 mg PO BIDWMEAL Ozempic (semaglutide) 0.25 mg (0.368 mL) subcut QWEEK 1 month NS Tobacco use date assessed: 11/27/24 Fall risk assessment: No Falls in past year Last assessed Fall Risk: 11/27/24 Dental Screening Dental Screen Date: 11/27/24 Did you have a dental visit in the last 12 months?: No Did you have a dental problem in the last 6 months where you did not have access to dental care?: No Was dental information given to patient?: Patient declined HPI FMA paperwork for daughter HPI Details 84 year-old lady with history hypertension, hyperlipidemia, and diabetes mellitus, here today for follow-up. Admits to forgetting to take her medicines especially her blood pressure medicines regularly. Should today still a log goal of less than 130/80. Denies any chest pain or headache, no lightheadedness reported. Currently being followed at [facility] endocrine clinic for her diabetes mellitus , with current hemoglobin A1c at 6.7%. Currently on Ozempic and metformin . Lipids are well controlled on atorvastatin 10 mg daily, with latest fasting lipids drawn last September 2024 within normal limits. Currently being followed by Nephrology for her chronic kidney disease. Complains of decreased hearing in both ears. [facility] Medical History (Updated 12/03/24 @ 20:36 by Inga Alvarenga MD) Controlled type 2 diabetes mellitus Chronic kidney disease Diabetes mellitus with microalbuminuria, 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 Hypertrophic toenail Depression with anxiety Pain, joint, lower leg, right Intractable heel pain Tinea unguium Essential hypertension Diabetes mellitus with hyperglycemia, without long-term current use of insulin Memory loss Hyperlipidemia Surgical History S/P right knee surgery Hx of section S/P cholecystectomy Hx of total knee replacement Family History Father Hypertension Stroke Mental health disorder Mother Hypertension Sister Tuberculosis Social History Household Members Other:: lives with daughter Housing: House Patient Tobacco Use Status: Never used Tobacco e-Cigarette/Vaping Use: Never Used Current occupational status: retired Cognitive needs: No Hearing needs: No Vision needs: Yes Questionnaire Thrive Questionnaire Date Thrive assessed: 10/03/24 I am a: Patient What is your living situation today?: I have a place to live, but I am worried about losing it in the future Within the past 12 months, did the food you bought not last and you didn't have the money to get more?: Never true Within the past 12 months, did you worry whether your food would run out before you got money to buy more?: Never true Do you have trouble paying for medicines?: Yes Do you have trouble getting transportation to medical appointments?: Yes Do you have trouble paying your heating and electricity bill?: Yes Do you have trouble taking care of your child, family member or friend?: No Do you have trouble with day-to-day activities such as bathing, preparing meals, shopping, managing finances, etc.?: Yes Are you currently unemployed and looking for a job?: No Are you interested in more education?: No Currently or been in a relationship where the following occur: No concerns reported THRIVE Score: 3 AUDIT C Alcohol Use Questionnaire (AUDIT-C) 1. How often do you have a drink containing alcohol?: Never Total Score: 0 Review of Systems Const Reports as per HPI Eyes Details: Overdue for diabetes retinopathy screening Denies change in vision ENT Details: Decreased hearing both ears Denies ear discharge, Denies otalgia and Denies nasal congestion Card Denies chest pain, Denies rapid heart rate, Denies pedal edema, Denies irregular heart rhythm and Denies dyspnea Resp Denies cough and Denies dyspnea GI Reports no additional complaints Denies hematuria, Denies difficulty voiding and Denies dysuria Musc Details: Occasional stiffness in joints and feet , no swelling or bone deformity he reported Neuro Reports no additional complaints Psych Reports as per HPI Endo Denies polydipsia and Denies polyuria Faisal/Lymph Reports no additional complaints Aller/Immun Reports no additional complaints Physical exam (Primary Care) Vital Signs: Last Vital Signs Temp 98.4 F 11/27/24 10:56 Pulse 77 11/27/24 10:56 BP 148/60 H 11/27/24 10:56 Pulse Ox 98 11/27/24 10:56 Oxygen Delivery Method Room Air 11/27/24 10:56 BMI result Body Mass Index 28.8 Tobacco/Smoking Status: Tobacco use Status Tobacco use date assessed 11/27/24 11/27/24 11:01 Patient Tobacco Use Status Never used Tobacco 11/27/24 11:01 e-Cigarette/Vaping Use Never Used 11/27/24 11:01 PHQ-9: PHQ-9 Score PHQ-9: Total score 15 11/27/24 11:38 Thrive Assessment: Date of Thrive Assessment Date Thrive assessed 10/03/24 11/27/24 11:01 Currently or been in a relationship where the following occur: No concerns reported Const General: no acute distress and alert Nutritional Appearance: average body habitus Orientation/consciousness: patient oriented x3 HENMT Ears: hearing grossly impaired Mouth: Normal oral and palatal mucosa present and moist mucous membranes Throat: Yes posterior oropharynx normal Eyes General: appearance normal, both eyes and all related structures Neck Neck: Yes no lymphadenopathy and Yes supple Resp Effort & Inspection: normal respiratory effort Auscultation: clear to auscultation bilaterally Cardio Rhythm: regular rhythm Heart sounds: S1 normal heart sound present and S2 normal heart sound present GI Palpation (GI): Soft to palpation Percussion: Yes normal to percussion Auscultation: normal bowel sounds General: Yes no CVA tenderness Back/Spine/Pelvis Back: no CVA tenderness Skin General skin exam: no rashes or lesions noted Neuro General: patient oriented x3, gait normal, tone normal, moves all extremities, Normal light touch and pain sensation and CN's II-XI intact bilaterally Cognition (Neuro): normal cognition Motor exam (neuro): 5/5 motor strength present throughout Extrem General: Yes full ROM, Yes no joint enlargement, Yes no pedal edema and Yes normal gait Psych Appearance: grossly normal and well kempt Mental Status: mental status grossly normal Speech and movement: Normal speech and movement present Affect: normal affect Results Reviewed Results Reviewed: Name: Ely Little Age/Sex: 83/F : 1940 Unit#: [id number] Attend Dr: Raj Moss MD Re11/15/24 Status: DEP REF Location: [facility] Disch: SPEC : [id number] ELIAN: 11/15/24 STATUS: COMP REQ : [id number] RECD: 11/15/24-[address]: Raj Moss MD COMP: 11/15/247 ENTERED: 11/15/[address]: Inga Alvarenga MD ORDERED: BMP, TSH Rflx Test Result Flag Reference Sodium 140 135-145 mmol/L Potassium 4.1 3.3-5.1 mmol/L CL 103 96-108 mmol/L CO2 28 22-29 mmol/L Gap 13 12-20 BUN 15 9-16 mg/dL Creat 0.88 0.5-1.4 mg/dL eGFR > 60 Chronic Kidney Disease: Estimated GFR < 60 mL/min/1.73m2 Severe Kidney Disease: Estimated GFR < 15 mL/min/1.73m2 Glucose, Random 114 60-115 mg/dL CA 9.5 8.4-10.2 mg/dL TSH 1.37 0.32-4.0 uIU/mL Laboratory Tests 11/15/24 10:00 Estimat Average Glucose 146 Hemoglobin A1c % 6.7 H Laboratory Tests 11/15/24 10:00 Urine Microalbumin 43.0 Name: Ely Little Age/Sex: 83/F : 1940 Unit#: [id number] Attend Dr: Inga Alvarenga MD Re09/29/24 Status: DEP REF Location: [facility] Disch: SPEC : [id number] ELIAN: 09/29/24-999 STATUS: COMP REQ : [id number] RECD: 09/29/24-[address]: Inga Alvarenga MD COMP: 09/29/24-1353 ENTERED: 09/29/24-[address] [facility] [address]: ORDERED: Met Prof Fast, AST, ALT, Lipid Panel, Vitamin D 25-OH, TSH Rflx Test Result Flag Reference Sodium 142 135-145 mmol/L Potassium 3.8 3.3-5.1 mmol/L CL 108 96-108 mmol/L CO2 27 22-29 mmol/L Gap 11 L 12-20 BUN 12 9-16 mg/dL Creat 0.87 0.5-1.4 mg/dL eGFR > 60 Chronic Kidney Disease: Estimated GFR < 60 mL/min/1.73m2 Severe Kidney Disease: Estimated GFR < 15 mL/min/1.73m2 FBS 120 H 60-99 mg/dL A fasting glucose from 100-125 mg/dl is considered impaired (pre-diabetes). CA 9.2 # 8.4-10.2 mg/dL AST (GOT) 20 5-31 U/L ALT (GPT) 7 0-31 U/L Triglyceride 46 <150 mg/dL Desirable Triglyceride: less than 150 mg/dL Borderline High Triglyceride 150-199 mg/dL High Triglyceride: 200-499 mg/dL Very High Triglyceride: greater than or equal to 5OO mg/dL Cholesterol 120 <200 mg/dL Desirable Cholesterol: less than 200 mg/dL Borderline High Cholesterol: 200-239 mg/dL High Cholesterol: greater than 239 mg/dL LDL Calculated 61 <100 mg/dL Desirable LDL: less than 100 mg/dL Near Optimal/Above Optimal LDL: 110-129 mg/dL Borderline High LDL: 130-159 mg/dL High LDL: 160-189 mg/dL Very High LDL: greater than or equal to 190 mg/dL HDL 50 >40 mg/dL Desirable HDL: greater than 40 mg/dL Note: This HDL assay may give artificially low results in patients with liver disease. Vitamin D 25-OH 42.5 >30 ng/mL Health Based Reference Values* < 20 ng/mL Deficient 20-30 ng/mL Insufficient > 30 ng/mL Sufficient *Lynette BORJAS. N Engl J Med. 2007;357:266-280 There is no well-established upper level of normal vitamin D levels. Some laboratories use 50 ng/mL as an upper limit of normal. However, toxicity is patient-dependent and may occur at any level. Careful correlation with the patient's presentation is necessary and, if there is concern for vitamin D toxicity, treatment should be considered irrespective of the serum level. Care must be taken in interpreting Vitamin D results from different laboratories and methodologies. Published data demonstrated that results from patients undergoing hemodialysis may show a negative bias when tested with various automated 25-OH vitamin D assays when compared to LC-MS/MS. When testing samples from patients whose predominant form of Vitamin D is Vitamin D2, such as patients receiving Vitamin D2 supplementation, results that are subtherapeutic should be confirmed with another method such as LC-MS/MS. TSH 1.12 0.32-4.0 uIU/mL Coding Level of Care Code Est Pt Level 4 (25073) Complex EM visit Add On G2211 Diagnoses Essential hypertension I10 Pure hypercholesterolemia E78.00 Hyperlipidemia type: pure hypercholesterolemia Diabetes mellitus with hyperglycemia, without long-term current use of insulin E11.65 Decreased hearing of both ears H91.93 Chronic kidney disease N18.9 Assessment & Plan Assessment & Plan (1) Essential hypertension: Code(s): I10 - Essential (primary) hypertension Category: Medical Plan: Improvement in blood pressure control noted, but goal is less than 130/80. currently on carvedilol 3.125 mg twice a day and losartan 50 mg daily. Stressed importance of taking medicine regularly (2) Hyperlipidemia: Code(s): E78.5 - Hyperlipidemia, unspecified Category: Medical Qualifiers: Hyperlipidemia type: pure hypercholesterolemia Qualified Code(s): E78.00 - Pure hypercholesterolemia, unspecified Plan: Fasting lipids checked September 2024 showed results within normal limits. Continue atorvastatin 10 mg daily (3) Diabetes mellitus with hyperglycemia, without long-term current use of insulin: Code(s): E11.65 - Type 2 diabetes mellitus with hyperglycemia Category: Medical Plan: Followed by [facility] endocrine clinic, currently on metformin and Ozempic (4) Decreased hearing of both ears: Code(s): H91.93 - Unspecified hearing loss, bilateral Category: Medical Plan: Has bilateral impacted cerumen. Advised to use [id number] Debrox drops, and schedule an appointment for cerumen removal (5) Chronic kidney disease: Code(s): N18.9 - Chronic kidney disease, unspecified Category: Medical Plan: Followed by Nephrology, reinforced importance of avoiding NSAIDs, and nephrotoxic agents, stressed importance of getting diabetes and hypertension controlled
--- OUTSIDE RECORDS SUMMARY | 2024-11-27 13:57 | XMS_ITS | Patient Health Record ---
Author Organization [facility] Address [address] [place] [address] Care Team Providers Care Senior Core Java Developer Name Role Phone Catalino PLUMMER, Erin Primary Care Provider Familia Avery Unavailable [phone] Allergies Allergen (clinical drug ingredient) Drug/Non Drug [...] primary osteoarthritis of the ankle and/or foot ([id number]) Primary osteoarthrit is, right ankle and foot (M19.071) Active confirmed Problem Localized, primary osteoarthritis of the ankle and/or foot (474236014) Primary osteoarthrit is, left ankle and foot (M19.072) Active confirmed Problem Acquired hammer toe of right foot (4656382740840725) Other hammer toe(s) (acquired), right foot (M20.41) Active confirmed Problem Acquired hammer toe of left foot (8197479590450944) Other hammer toe(s) (acquired), left foot (M20.42) Active confirmed Plan Of Treatment Pending Test Test Name Order Date X ray : Foot, left 2V 03/05/2017 X ray : Foot, right 3V 03/05/2017 [id number] NAIL, 6 OR MORE 03/05/2017 [id number] SKIN LESIONS, 2 TO 4 03/05/20 17 Insurance Providers Payer Name Payer Address Payer Phone Subscriber Number Group Number Insured Name Patient Relationship to Insured Coverage Start Date Coverage End Date [facility] Medicare Complete [address] [address] [place] [address] [id number] Jerome Little Self - patient is the insured Medical (General) History Medical History History ICD Code Arthritis Back,Hip,and Knee pain Depression Diabetic Hypertension Surgical History Surgery Date(Month/Year) gall bladder 3 years ago section 1975 cataract surgery 2016
== END 2024-11-27 11:44 | disposition home or self-care (01) ==
LOC: HO.HMCC 10:44
PROVIDERS: Visit Provider Internal Medicine
DX: I12.9 Hypertensive chronic kidney disease with stage 1 through stage 4 chronic kidney disease, or unspecified chronic kidney disease (principal); E78.00 Pure hypercholesterolemia, unspecified; E11.65 Type 2 diabetes mellitus with hyperglycemia; H91.93 Unspecified hearing loss, bilateral; N18.9 Chronic kidney disease, unspecified

== ENCOUNTER → 2024-11-27 10:43 | Outpatient (BNVA) | payer MEDICARE, SELFPAY | PROVIDERS: Visit Provider Internal Medicine | DX: I12.9 Hypertensive chronic kidney disease with stage 1 through stage 4 chronic kidney disease, or unspecified chronic kidney disease (principal); E11.22 Type 2 diabetes mellitus with diabetic chronic kidney disease; E78.00 Pure hypercholesterolemia, unspecified; E11.65 Type 2 diabetes mellitus with hyperglycemia; H91.93 Unspecified hearing loss, bilateral; N18.9 Chronic kidney disease, unspecified | CPT/HCPCS: 99212 ==

== ENCOUNTER 2025-01-29 09:00 | Outpatient (AMB) | payer MEDICARE, SELFPAY ==
--- NOTE | 2025-01-29 09:08 | HO.NEPHOV_ITS ---
Vital Signs 01/29/25 09:10 Height 5 ft 4 in Weight 175 lb 8 oz BMI 30.1 BP 168/90 H Blood Pressure Location Lt brachial Position Sitting Pulse 87 Pulse Source Pulse Oximeter Pulse Oximetry (%) 108 H Oxygen Delivery Method Room Air Intake Visit Reasons: 3mon f/u No labs-Conf w/daughter Staff Research Associate Required: No Accompanied by: Daughter Allergies latex Allergy (Mild, Verified 01/29/25 09:10) Cough HPI Comments Details: 83-year-old lady with past medical history of hypertension, diabetes, arthritis, depression and anxiety he is here for followup of proteinuria. Here with daughter Candelaria Hypertension: Started in her 30s possibly related , losartan 50 mg daily, carvedilol 3.125 mg b.i.d. Forgot to take her meds this morning, doesnt check blood pressure at home. Diabetes mellitus: doesnt remember when it started but has it for a while, on metformin, Ozempic lost about 40lbs over the past year, was weighing 213lbs before, unintentional; now on ozempic but weight same as last visit lately forgetting things, and episodes of confusion [facility] Medical History (Updated 01/29/25 @ 09:34 by Raj Moss MD) Controlled type 2 diabetes mellitus Chronic kidney disease Diabetes mellitus with microalbuminuria, 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 Hypertrophic toenail Depression with anxiety Pain, joint, lower leg, right Intractable heel pain Tinea unguium Essential hypertension Diabetes mellitus with hyperglycemia, without long-term current use of insulin Memory loss Hyperlipidemia Surgical History S/P right knee surgery Hx of section S/P cholecystectomy Hx of total knee replacement Family History Father Hypertension Stroke Mental health disorder Mother Hypertension Sister Tuberculosis Social History Household Members Other:: lives with daughter Housing: House Patient Tobacco Use Status: Never used Tobacco e-Cigarette/Vaping Use: Never Used Current occupational status: retired Cognitive needs: No Hearing needs: No Vision needs: Yes Review of Systems Const Details: Const : no body aches, no chills, no excessive sweating and no fatigue Eyes: no blurry vision and no change in vision ENT: no bleeding gums and no change in voice, no dizziness Card: no chest pain, no shortness of breath, no orthopnea, no PND Resp: no cough, no excessive phlegm production, no SOB GI: no abdominal pain and no nausea, no vomiting : no hematuria, no urinary frequency and no difficulty voiding Musc: no abnormal gait, no bone pain Neuro: no abnormal movements, no weakness, no dizziness, no abnormal gait and no behavioral changes Psych: no behavioral changes and no change in appetite Endo: no change in body appearance, no cold intolerance, no excessive sweating and no fatigue Physical Exam Vital Signs: Last Vital Signs Pulse 87 01/29/25 09:10 BP 168/90 H 01/29/25 09:10 Pulse Ox 108 H 01/29/25 09:10 Oxygen Delivery Method Room Air 01/29/25 09:10 BMI result Body Mass Index 30.1 General: not in any acute distress, comfortable, sitting on the chair Nutritional Appearance: well nourished and weight on higher side Eyes: normal position, no icterus Neck: No lymphadenopathy, no thyromegaly Resp: bilateral air entry equal, no added sounds present Cardio: normal S1, S2 heard, no murmur heard, no edema GI: soft, nontender, no guarding, no hepatosplenomegaly : bladder normal to inspection, bladder normal to palpation, no renal angle tenderness Skin: no rashes or lesions noted and elasticity normal Neuro: oriented to person, oriented to place, oriented to time and moves all extremities Results Reviewed Nephrology Results: Sodium, (135-145) 140 mmol/L 11/15/24 Potassium, (3.3-5.1) 4.1 mmol/L 11/15/24 Chloride, (96-108) 103 mmol/L 11/15/24 Carbon Dioxide, (22-29) 28 mmol/L 11/15/24 BUN, (9-16) 15 mg/dL 11/15/24 Creatinine, (0.5-1.4) 0.88 mg/dL 11/15/24 Calcium, (8.4-10.2) 9.5 mg/dL 11/15/24 Urine Protein, (Neg-Trace) Trace mg/dL 11/15/24 Urine Creatinine 106.80 mg/dL 11/15/24 Protein/Creatinin Ratio, (24-184) 178 mg/g creat Assessment & Plan Assessment & Plan (1) Essential hypertension: Code(s): I10 - Essential (primary) hypertension Category: Medical (2) Chronic kidney disease: Code(s): N18.9 - Chronic kidney disease, unspecified Category: Medical (3) Proteinuria: Code(s): R80.9 - Proteinuria, unspecified Category: Medical Plan Chronic kidney disease stage II A2: - possibly secondary to diabetic kidney disease but would like to rule out other etiologies - no family history of CKD, no history of renal stones in the past, NSAID use. Father had stroke. - creatinine 0.8 , GFR >60; HbA1c 6.7 - urine microalbumin creatinine ratio: 278.7 in May 2024, decreased to 40.2 with losartan. - Urinalysis clean, no cells - no renal imaging - avoid nephrotoxic medications not limited to NSAIDs, contrast etc. - importance of diet, weight loss, adequate blood pressure control well explained to patient - negative hepatitis panel, HIV, ANCA, complements, SPEP, UPEP, serum free light chains - MARIE positive 1:320. Dementia: forgetting things more often along with confusion will refer to neurology Hypertension: - target blood pressures less than 130/90 mm Hg - compliance: not good, forgot to take meds this morning - on losartan 50 mg, carvedilol 3.125 b.i.d, will increase losartan to 100mg as her blood pressures are higher side all the visit. will see her back in 6 months with UPCR and UACR Orders: Orders Microalbumin, Random (w Creat) 6 Months I10 - Essential (primary) hypertension, N18.9 - Chronic kidney disease, unspecified, R80.9 - Proteinuria, unspecified Total Protein Urine Random 6 Months I10 - Essential (primary) hypertension, N18.9 - Chronic kidney disease, unspecified, R80.9 - Proteinuria, unspecified Creatinine Urine 6 Months I10 - Essential (primary) hypertension, N18.9 - Chronic kidney disease, unspecified, R80.9 - Proteinuria, unspecified Referrals Neurology Referral F03.90 - Unspecified dementia, unspecified severity, without behavioral disturbance, psychotic disturbance, mood disturbance, and anxiety Medications: New dicyclomine 10 mg PO BID PRN 30 caps 2RF abdominal pain Changed From losartan 50 mg PO DAILY 30 tabs 1RF To losartan 100 mg (2 x 50 mg) PO DAILY 30 tabs 5RF Coding Level of Care Code Est Pt Level 4 (73721) Diagnoses Essential hypertension I10 Chronic kidney disease N18.9 Proteinuria R80.9
[2025-01-29 09:10] VITALS: BP 168/90; PULSE 87; O2SAT 108; BMI 30.1
== END 2025-01-29 09:45 | disposition home or self-care (01) ==
LOC: HO.HKAS 09:01
PROVIDERS: PCP Internal Medicine; Visit Provider Internal Medicine Critical Care Medicine
DX: I12.9 Hypertensive chronic kidney disease with stage 1 through stage 4 chronic kidney disease, or unspecified chronic kidney disease (principal); N18.9 Chronic kidney disease, unspecified; R80.9 Proteinuria, unspecified
CPT/HCPCS: 99214

== ENCOUNTER → 2025-01-29 09:00 | Outpatient (BNVA) | payer MEDICARE, SELFPAY | PROVIDERS: PCP Internal Medicine; Visit Provider Internal Medicine Critical Care Medicine | DX: I12.9 Hypertensive chronic kidney disease with stage 1 through stage 4 chronic kidney disease, or unspecified chronic kidney disease (principal); E11.65 Type 2 diabetes mellitus with hyperglycemia; E11.22 Type 2 diabetes mellitus with diabetic chronic kidney disease; E11.69 Type 2 diabetes mellitus with other specified complication; N18.2 Chronic kidney disease, stage 2 (mild); R80.8 Other proteinuria; Z79.85 Long-term (current) use of injectable non-insulin antidiabetic drugs | CPT/HCPCS: 99212 ==

== ENCOUNTER 2025-01-30 10:55 | Outpatient (AMB) | payer MEDICARE, SELFPAY ==
--- NOTE | 2025-01-30 11:14 | MHC.AMNUTRGE ---
VS Expanded 01/30/25 11:17 01/30/25 12:05 Height 5 ft 4 in 5 ft 4 in Weight 174 lb 174 lb BMI 29.9 29.9 Intake Visit Reasons: Type 2 diabetes mellitus with hyperglycemia Allergies latex Allergy (Mild, Verified 01/29/25 09:10) Cough Nutrition Presentation Details: Patient presents for medical nutrition therapy for type 2 diabetes with hyperglycemia Patient presents with daughter Patient has questions regarding carbohydrate. Patient admits to increase intake of sweets and empty calorie foods . Patient reports being always a picky eater. Food frequency Fruits 0-1 a day Vegetables 3 times a week Dairy 3-4 a day Fish once a week, Beverages: Water, juices, milk Physical activity daily life activities Alcohol denies Smoking denies BS Monitoring Most Recent Diabetes Results: Microalb/Creat Ratio, (<30) 40.2 ug/mg cr H 11/15/24 Creatinine, (0.5-1.4) 0.88 mg/dL 11/15/24 BUN, (9-16) 15 mg/dL 11/15/24 Sodium, (135-145) 140 mmol/L 11/15/24 Potassium, (3.3-5.1) 4.1 mmol/L 11/15/24 Chloride, (96-108) 103 mmol/L 11/15/24 Carbon Dioxide, (22-29) 28 mmol/L 11/15/24 Calcium, (8.4-10.2) 9.5 mg/dL 11/15/24 ABG-Dqafmcg-Ot.Jeor Equation Height: 5 ft 4 in Weight: 174 lb Resting Metabolic Rate: 1235.10 Calculated Activity Level: Sedentary Calories Needed to Maintain Weight: 1482.12 Diagnosis Nutrition problem #1: food nutri know defi As related to (etiology) #1: diagnosis As evidenced by (sign/symptom) #1: knowledge deficit of diet [facility] Medical History (Updated 01/29/25 @ 09:34 by Raj Moss MD) Controlled type 2 diabetes mellitus Chronic kidney disease Diabetes mellitus with microalbuminuria, 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 Hypertrophic toenail Depression with anxiety Pain, joint, lower leg, right Intractable heel pain Tinea unguium Essential hypertension Diabetes mellitus with hyperglycemia, without long-term current use of insulin Memory loss Hyperlipidemia Surgical History S/P right knee surgery Hx of section S/P cholecystectomy Hx of total knee replacement Family History Father Hypertension Stroke Mental health disorder Mother Hypertension Sister Tuberculosis Social History Household Members Other:: lives with daughter Housing: House Patient Tobacco Use Status: Never used Tobacco e-Cigarette/Vaping Use: Never Used Current occupational status: retired Cognitive needs: No Hearing needs: No Vision needs: Yes Assessment & Plan Assessment & Plan (1) Diabetes mellitus with microalbuminuria, without long-term current use of insulin: Code(s): E11.29 - Type 2 diabetes mellitus with other diabetic kidney complication; R80.9 - Proteinuria, unspecified Category: Medical Plan: current wt: 79kg ( 02/06) est kcal needs as per MSJ: 1500 est protein needs as per 1 g/kg BW: 80 est fluid needs as per 30 ml/kg BW: 2300 Recommended fiber > 12 g /day and gradually increase up to 25-28 g /day or as tolerated Nutrition topics discussed : Reviewed (R), Pt verbalized understanding (V) , not applicable (N/A) R, : Healthy Plate Method Concept: R, : Carbohydrates: food sources of carbohydrates, relationship of carbohydrates to blood glucose, fatty liver GI health. Recommended total amount of carbohydrates per meals and snack. Differences between simple carbohydrates and complex carbohydrates R, V, N/A: Lean protein foods including vegan , vegetarian sources of protein. Benefits of protein (including but not limited to healing, nutritional value , benefits in weight loss, glucose control R, V, N/A: Fats : Source of fats, benefits of fats. Difference between saturated and unsaturated fats. Saturated fats and its contribution to inflammation R, V, N/A: Fiber: food sources and role of fiber in the diet (including but not limited to its role as a prebiotic, benefits in constipation, role in IBS , role in glucose control and cholesterol level) R, V, N/A: Hydration: role of hydration and prevention of dehydration or over hydration. Foods and water content. R, V, N/A: Vitamins and Minerals in foods and supplements R, V, N/A: Interpreting food labels, including serving size, macronutrients, vitamins, minerals, allergens, ingredient list , % daily value Patient Instructions: Work on choosing fruits as you reduce on empty calorie snacks Follow healthy plate method did once a day, including fish at least twice a week When ordering ask for seasoning is or sauces on the side and request low-sodium options Coding Level of Care Code Nutr Indiv Intake (18962) Diagnoses Diabetes mellitus with microalbuminuria, without long-term current use of insulin E11.29; R80.9 Time Spent (min) 30
[2025-01-30 11:17] VITALS: BMI 29.9
[2025-02-05 09:33] VITALS: BMI 29.9
== END 2025-01-30 12:14 | disposition home or self-care (01) ==
LOC: HO.ENCR 10:56
PROVIDERS: PCP Internal Medicine; Visit Provider Dietitian, Registered
DX: E11.29 Type 2 diabetes mellitus with other diabetic kidney complication (principal); R80.9 Proteinuria, unspecified

== ENCOUNTER → 2025-01-30 10:55 | Outpatient (BNVA) | payer MEDICARE, SELFPAY | PROVIDERS: Visit Provider Dietitian, Registered | DX: E11.69 Type 2 diabetes mellitus with other specified complication (principal); E11.65 Type 2 diabetes mellitus with hyperglycemia; E11.29 Type 2 diabetes mellitus with other diabetic kidney complication; N18.9 Chronic kidney disease, unspecified; R80.9 Proteinuria, unspecified | CPT/HCPCS: 97802 ==

== ENCOUNTER 2025-02-20 11:16 | Outpatient (AMB) | payer MEDICARE, SELFPAY ==
--- NOTE | 2025-02-20 11:37 | A.OFFPC_ITS ---
Vital Signs 02/20/25 11:38 Height 5 ft 4 in Weight 174 lb BMI 29.9 BP 142/80 H Blood Pressure Location Lt brachial Position Sitting Respiration 16 Pulse 89 Pulse Source Pulse Oximeter Temp 97.9 F Temp Source Oral Pulse Oximetry (%) 98 Oxygen Delivery Method Room Air Intake Visit Reasons: PE - see comments Intake Note: Pt is here today for her PE Inventory Checker Required: No Allergies latex Allergy (Mild, Verified 02/20/25 12:01) Cough Medication List - Last Reconciled 02/20/25 by Inga Alvarenga MD atorvastatin 10 mg PO DAILY blood sugar diagnostic (OneTouch Ultra Test strips) Check fasting glucose twice a day ac blood sugar diagnostic (Accu-Chek Guide test strips) As directed blood-glucose meter (Accu-Chek Guide Me Glucose Meter) As directed blood-glucose,pyrotechnic assembler,cont (VDI SpaceStyle Astrid 3 [place]) Use daily to monitor blood glucose levels continuously. carvedilol 3.125 mg PO BID dextrose (TRUEplus Glucose) 15 grams (32 mL) PO Q15M PRN dicyclomine 10 mg PO BID PRN lancets Check fasting blood sugar twice a day ac lancets (Accu-Chek Softclix Lancets) As directed losartan 100 mg (2 x 50 mg) PO DAILY 30 days metformin 1,000 mg PO BIDWMEAL Ozempic (semaglutide) 0.25 mg (0.368 mL) subcut QWEEK 1 month NS Tobacco use date assessed: 02/20/25 Fall risk assessment: 1 Fall in past year Last assessed Fall Risk: 02/20/25 Dental Screening Dental Screen Date: 11/27/24 Did you have a dental visit in the last 12 months?: No Did you have a dental problem in the last 6 months where you did not have access to dental care?: No Was dental information given to patient?: No HPI PE - see comments HPI Details 84-year-old lady here today for physical exam. Currently being followed at [facility] clinic for her diabetes mellitus , with current hemoglobin A1c at 6.7% from November 2024. Currently on Ozempic and metformin. Lipids are well controlled on atorvastatin 10 mg daily, with latest fasting lipids drawn last September 2024 within normal limits. Currently being followed by Nephrology for her chronic kidney disease. Denies any chest pain or headache, no lightheadedness reported. HPI Comments History of Present Illness Details 84-year-old lady here today for physical exam. Currently being followed at [facility] endocrine clinic for her diabetes mellitus , with current hemoglobin A1c at 6.7% from November 2024. Currently on Ozempic and metformin. Lipids are well controlled on atorvastatin 10 mg daily, with latest fasting lipids drawn last September 2024 within normal limits. Currently being followed by Nephrology for her chronic kidney disease. Denies any chest pain or headache, no lightheadedness reported. She denies any vision changes related to diabetes, as confirmed by a recent eye exam at [facility] [place] last month. The patient reports a history of occasional left lower abdominal pains comfort accompanied by passage of soft stool for the past four to five years, with stools that are often runny and not formed, accompanied by gas. Metformin is noted as a potential cause for the diarrhea. Dicyclomine was prescribed in January by her kidney doctor for treatment of irritable bowel symptoms, which she has at home but does not recall taking. Her blood pressure was noted to be elevated during the visit; she takes carvedilol twice daily and losartan, forgot to take morning medication, Needs refills on her carvedilol and metformin. The patient reports memory issues, including forgetting was replaced things and episodes of confusion, like putting a can in the microwave,. She was referred for evaluation by Neurology by Dr. Munoz. She has not yet scheduled a neurology appointment. She is still independent in her activities of daily living, such as bathing. She has an upcoming podiatry appointment on March [address] Didi Grullon for ongoing foot pain and diabetes foot exam. She declined getting mammogram, colonoscopy, or bone density scan. Regarding immunizations, she reports receiving the flu shot and pneumonia vaccine at a senior center and a COVID vaccine at a drug store, but does not believe she has had the RSV or recent shingles vaccine. 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 Hypertrophic toenail Depression with anxiety Pain, joint, lower leg, right Intractable heel pain Tinea unguium Essential hypertension Diabetes mellitus with hyperglycemia, without long-term current use of insulin Memory loss Hyperlipidemia Surgical History S/P right knee surgery Hx of section S/P cholecystectomy Hx of total knee replacement Family History Father Hypertension Stroke Mental health disorder Mother Hypertension Sister Tuberculosis Social History Household Members Other:: lives with daughter Housing: House Patient Tobacco Use Status: Never used Tobacco e-Cigarette/Vaping Use: Never Used Current occupational status: retired Cognitive needs: No Hearing needs: No Vision needs: Yes Questionnaire PHQ-9 Over the last 2 weeks, how often have you been bothered by any of the following problems? 1. Little interest or pleasure in doing things: not at all 2. Feeling down, depressed, or hopeless: not at all 3. Trouble falling or staying asleep, or sleeping too much: several days 4. Feeling tired or having little energy: several days 5. Poor appetite or overeating: several days 6. Feeling bad about yourself - or that you are a failure or have let yourself or your family down: not at all 7. Trouble concentrating on things, such as reading the newspaper or watching television: several days 8. Moving or speaking so slowly that other people could have noticed. Or the opposite - being so fidgety or restless that you have been moving around a lot more than usual: not at all 9. Thoughts that you would be better off or of hurting yourself in some way: not at all Total score: 4 Depression Screening Interpretation: Negative Depression Screening Done: Yes Source: Developed by Drs. José Scott, Radha Cool, Carlos Blanco and colleagues, with an educational néstor from [employer]. Thrive Questionnaire Date Thrive assessed: 10/03/24 I am a: Patient What is your living situation today?: I have a place to live, but I am worried about losing it in the future Within the past 12 months, did the food you bought not last and you didn't have the money to get more?: Never true Within the past 12 months, did you worry whether your food would run out before you got money to buy more?: Never true Do you have trouble paying for medicines?: Yes Do you have trouble getting transportation to medical appointments?: Yes Do you have trouble paying your heating and electricity bill?: Yes Do you have trouble taking care of your child, family member or friend?: No Do you have trouble with day-to-day activities such as bathing, preparing meals, shopping, managing finances, etc.?: Yes Are you currently unemployed and looking for a job?: No Are you interested in more education?: No Currently or been in a relationship where the following occur: No concerns reported THRIVE Score: 3 AUDIT C Alcohol Use Questionnaire (AUDIT-C) 1. How often do you have a drink containing alcohol?: Never Total Score: 0 Review of Systems Narrative Review of Systems Constitution Reports no additional complaints Eyes no change in vision, goes to [facility] for her routine eye exam and diabetes retinopathy screening ENT Reports no additional complaints, Denies dysphagia and Denies odynophagia Cardiology Reports no additional complaints Respiratory Reports no additional complaints GI As per HPI Reports no additional complaints Muscular no additional complaints Skin/Breast Denies breast swelling, Denies breast pain, Denies breast mass and Denies rash Neurology As per HPI Psychiatry Reports no additional complaints Endocrine Reports no additional complaints Faisal/Lymph Reports no additional complaints Aller/Immun Reports no additional complaints Physical exam (Primary Care) Vital Signs: Last Vital Signs Temp 97.9 F 02/20/25 11:38 Pulse 89 02/20/25 11:38 Resp 16 02/20/25 11:38 BP 142/80 H 02/20/25 11:38 Pulse Ox 98 02/20/25 11:38 Oxygen Delivery Method Room Air 02/20/25 11:38 BMI result Body Mass Index 29.9 Tobacco/Smoking Status: Tobacco use Status Tobacco use date assessed 02/20/25 02/20/25 11:39 Patient Tobacco Use Status Never used Tobacco 02/20/25 11:39 e-Cigarette/Vaping Use Never Used 02/20/25 11:39 Depression Screening Interpretation: Negative Thrive Assessment: Date of Thrive Assessment Date Thrive assessed 10/03/24 02/20/25 11:39 Currently or been in a relationship where the following occur: No concerns reported Narrative Physical Exam - General: Patient appears well, engaged in conversation. - Vital Signs: Blood pressure is elevated. - Cardiovascular: A soft, blowing murmur is auscultated. - Lungs: Clear to auscultation bilaterally. Const General: no acute distress and alert Nutritional Appearance: average body habitus Orientation/consciousness: patient oriented x3 HENMT Head: Yes normocephalic Ears: hearing grossly impaired Face and sinus: Yes face symmetric Mouth: Normal oral and palatal mucosa present and moist mucous membranes Eyes General: appearance normal, both eyes and all related structures Neck Neck: Yes no lymphadenopathy and Yes supple Resp Effort & Inspection: normal respiratory effort Auscultation: clear to auscultation bilaterally Cardio Rhythm: regular rhythm Heart sounds: S1 normal heart sound present, S2 normal heart sound present and Murmur heart sound present systolic soft and at the left sternal border GI Palpation (GI): Soft to palpation Percussion: Yes normal to percussion Auscultation: normal bowel sounds General: Yes no CVA tenderness Back/Spine/Pelvis Back: no CVA tenderness Skin General skin exam: no rashes or lesions noted Neuro General: patient oriented x3, gait normal, tone normal, moves all extremities, Normal light touch and pain sensation and CN's II-XI intact bilaterally Cognition (Neuro): normal cognition Motor exam (neuro): 5/5 motor strength present throughout Extrem General: Yes full ROM, Yes no joint enlargement, Yes no pedal edema and Yes normal gait Psych Appearance: grossly normal and well kempt Mental Status: mental status grossly normal Speech and movement: Normal speech and movement present Affect: normal affect Results Reviewed Results Reviewed: Name: Ely Little Age/Sex: 83/F : 1940 Unit#: [id number] Attend Dr: Raj Moss MD Re11/15/24 Status: DEP REF Location: [facility] Disch: SPEC : [id number] ELIAN: 11/15/24 STATUS: COMP REQ : [id number] RECD: 11/15/24-[address]: Raj Moss MD COMP: 11/15/24 ENTERED: 11/15/[address]: Inga Alvarenga MD ORDERED: BMP, TSH Rflx Test Result Flag Reference Sodium 140 135-145 mmol/L Potassium 4.1 3.3-5.1 mmol/L CL 103 96-108 mmol/L CO2 28 22-29 mmol/L Gap 13 12-20 BUN 15 9-16 mg/dL Creat 0.88 0.5-1.4 mg/dL eGFR > 60 Chronic Kidney Disease: Estimated GFR < 60 mL/min/1.73m2 Severe Kidney Disease: Estimated GFR < 15 mL/min/1.73m2 Glucose, Random 114 60-115 mg/dL CA 9.5 8.4-10.2 mg/dL TSH 1.37 0.32-4.0 uIU/mL Laboratory Tests 06/08/24 11/15/24 11:22 10:00 Estimat Average Glucose 146 Hemoglobin A1c % 6.7 H Urine Creatinine 56.68 Urine Microalbumin 158.0 Microalb/Creat Ratio 278.7 H Coding Level of Care Code Est Pt Prev Care >65y(89050) Diagnoses Diabetes mellitus with hyperglycemia, without long-term current use of insulin E11.65 Altered bowel habits R19.4 Pure hypercholesterolemia E78.00 Hyperlipidemia type: pure hypercholesterolemia Essential hypertension I10 Heart murmur, systolic R01.1 Memory impairment of gradual onset R41.3 Chronic kidney disease N18.9 Hypertrophic toenail L60.2 Annual visit for general adult medical examination with abnormal findings Z00.01 Assessment & Plan Assessment & Plan (1) Diabetes mellitus with hyperglycemia, without long-term current use of insulin: Code(s): E11.65 - Type 2 diabetes mellitus with hyperglycemia Category: Medical (2) Altered bowel habits: Code(s): R19.4 - Change in bowel habit (3) Hyperlipidemia: Code(s): E78.5 - Hyperlipidemia, unspecified Category: Medical Qualifiers: Hyperlipidemia type: pure hypercholesterolemia Qualified Code(s): E78.00 - Pure hypercholesterolemia, unspecified (4) Essential hypertension: Code(s): I10 - Essential (primary) hypertension Category: Medical (5) Heart murmur, systolic: Code(s): R01.1 - Cardiac murmur, unspecified Category: Medical (6) Memory impairment of gradual onset: Code(s): R41.3 - Other amnesia Category: Medical (7) Chronic kidney disease: Code(s): N18.9 - Chronic kidney disease, unspecified Category: Medical (8) Hypertrophic toenail: Code(s): L60.2 - Onychogryphosis Category: Medical (9) Annual visit for general adult medical examination with abnormal findings: Code(s): Z00.01 - Encounter for general adult medical examination with abnormal findings Plan Assessment and Plan 1. Diabetes Mellitus with hyperglycemia without long-term insulin use She is currently taking metformin and Ozempic 0.25 mg. Currently being followed at [facility] endocrine clinic, has appointment [facility] and retinopathy screening A refill for metformin will be sent to [facility] as she has run out. 2. Altered Bowel Habits (Constipation/Diarrhea/Gas) The patient has a history of constipation and currently experiences runny stools and gas, which may be a side effect of metformin. She was advised to start taking the dicyclomine prescribed by her referral to twice daily as needed for abdominal pain and irregular bowels, and to adjust the dose based on her symptoms 3. Hyperlipidemia The patient is on atorvastatin 10 mg with last fasting lipid levels checked in September within normal limits. A repeat fasting lipid panel will be ordered, which can be done with other labs ordered by her director food safety. 4. Hypertension Blood pressure was elevated today, compliant with medication is an issue, forgot to take her morning medication. She is almost out of carvedilol,a refill will be sent. 5. Heart Murmur A soft, blowing murmur was auscultated, echocardiogram ordered The patient will be contacted to schedule the appointment, with a preference for a morning slot on a Wednesday, , or Wednesday. 6. Memory Impairment The patient reports forgetfulness, and a concerning incident with a microwave prompted a neurology referral from Dr. Munoz. The patient was encouraged to exercise her brain with puzzles and games, go to the senior center and doing in the exercise program. She was advised to call and schedule her neurology appointment. 7. Chronic kidney disease Followed by Dr. Wyman, reinforced importance of avoiding nephrotoxic agents, e.g. NSAID, contrast dye. Reminded to keep upcoming appointments with nephrology (August 08). 8. Hypertrophic toenails She has an appointment with Dr. Grullon her oil and gas superintendent on March 02 2025 9. Annual general medical exam with abnormal findings Patient states that she already received her flu and COVID vaccine, requested copy of dates given She was encouraged to get the RSV vaccine, which is a single dose available at the pharmacy. Fasting lipid panel ordered today. [facility] paperwork for her caregiver was completed. Schedule follow-up in six-months to check lipids, hypertension Patient was informed and verbally consented to the use of an ambient scribe for clinic note documentation during this visit. Orders: Orders Lipid Panel 02/20/25 E78.00 - Pure hypercholesterolemia, unspecified, Z78.0 - Asymptomatic menopausal state CA echo transthoracic complete 02/20/25 R01.1 - Cardiac murmur, unspecified Vitamin D 25-OH Total 02/20/25 E78.00 - Pure hypercholesterolemia, unspecified, Z78.0 - Asymptomatic menopausal state
[2025-02-20 11:38] VITALS: BP 142/80; PULSE 89; RESP 16; TEMP 36.6; O2SAT 98; BMI 29.9
== END 2025-02-20 12:42 | disposition home or self-care (01) ==
LOC: HO.HMCC 11:17
PROVIDERS: PCP Internal Medicine; Visit Provider Internal Medicine
DX: E11.65 Type 2 diabetes mellitus with hyperglycemia (principal); R19.4 Change in bowel habit; E78.00 Pure hypercholesterolemia, unspecified; I12.9 Hypertensive chronic kidney disease with stage 1 through stage 4 chronic kidney disease, or unspecified chronic kidney disease; R01.1 Cardiac murmur, unspecified; R41.3 Other amnesia; N18.9 Chronic kidney disease, unspecified; L60.2 Onychogryphosis; Z00.01 Encounter for general adult medical examination with abnormal findings

== ENCOUNTER → 2025-02-20 11:16 | Outpatient (BNVA) | payer MEDICARE, SELFPAY | PROVIDERS: PCP Internal Medicine; Visit Provider Internal Medicine | DX: Z00.01 Encounter for general adult medical examination with abnormal findings (principal); E11.65 Type 2 diabetes mellitus with hyperglycemia; Z79.4 Long term (current) use of insulin; R19.4 Change in bowel habit; E78.00 Pure hypercholesterolemia, unspecified; I10 Essential (primary) hypertension; R01.1 Cardiac murmur, unspecified; R41.3 Other amnesia; N18.9 Chronic kidney disease, unspecified; L60.2 Onychogryphosis; R10.32 Left lower quadrant pain | CPT/HCPCS: 99397 ==